=== PATIENT | female | born 1965 | race Hispanic/Latino ===

== ENCOUNTER 2018-02-03 20:09 | Emergency (ER) | payer BC, OTHER ==
[2018-02-03 21:49] LABS: Absolute Lymphocytes (CBC) 2.5 K/uL (0.7-4.9); Absolute Monocytes 0.4 K/uL (0.1-1.3); Absolute Neutrophil 2.9 K/uL (1.8-8.0); Basophils % 0.9 % (0-1.3); Eosinophils % 4.8 % (0-4.4); Hematocrit 38.6 % (36.0-45.0); Lymphocytes % 40.5 % (15.3-44.8); MCV 89.7 fL (80-100); MPV 10.7 fL (7.6-11.3); Monocytes % 6.5 % (3.3-12.3)
--- NOTE | 2018-02-03 21:57 | RAD REPORT ---
EXAM DESCRIPTION: RAD - Ankle Left 3 View -02/03/2018 9:46 pm CLINICAL HISTORY: Left ankle pain and swelling FINDINGS: No fracture or dislocation is seen. The bones are osteoporotic. Marked soft tissue swelling is present. Mild joint space narrowing is see n. Mild deformity of the talus appears chronic
[2018-02-03 22:05] LABS: Potassium 3.9 mmol/L (3.5-5.1)
--- NOTE | 2018-02-03 23:10 | ER ---
Nurse's Notes [facility] Name: Luba Ng Age: 52 yrs Sex: Female : 1965 Arrival Date: 02/03/2018 Time: 20:26 Bed 5 Private MD: Diagnosis: Rash and other nonspecific skin eruption Presentation: 02/03 20:32 Presenting complaint: Patient states: pt states she was sent by Dr Talbert for failed bb out patient therapy for left leg. pt injured left leg earlier in January and had an ultrasound here which was negative for a clot at that time, pt leg has been swollen since then and she has had 2 rounds of antibiotics but it is not getting any better. Transition of care: patient was not received from another setting of care. Onset of symptoms was January 2018. Risk Assessment: Do you want to hurt yourself or someone else? Patient reports no desire to harm self or others. Initial Sepsis Screen: Does the patient meet any 2 criteria? No. Patient's initial sepsis screen is negative. Does the patient have a suspected source of infection? No. Patient's initial sepsis screen is negative. Care prior to arrival: None. 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 - Social history:: Smoking status: Patient/guardian denies using tobacco, Patient/guardian denies using alcohol. - Ebola Screening: : No symptoms or risks identified at this time. Screenin:46 Abuse screen: Denies threats or abuse. Denies injuries from another. Nutritional ak1 screening: No deficits noted. Tuberculosis screening: No symptoms or risk factors identified. Fall Risk Gait- Normal/Bed Rest/Wheelchair (0 pts). Assessment: 20:46 General: Appears in no apparent distress. Behavior is calm, cooperative. Pain: ak1 Complains of pain in left leg. Neuro: No deficits noted. Cardiovascular: No deficits noted. Respiratory: No deficits noted. GI: No signs and/or symptoms were reported involving the gastrointestinal system. : No signs and/or symptoms were reported regarding the genitourinary system. EENT: No signs and/or symptoms were reported regarding the EENT system. Derm: Skin is red, Skin temperature is warm. Musculoskeletal: pt with hx polio. pt with redness and swelling to left lower leg. 21:41 Reassessment: Patient appears in no apparent distress at this time. No changes from ak1 previously documented assessment. Patient is alert, oriented x 3, equal unlabored respirations, skin warm/dry/pink. 23:14 Reassessment: Patient appears in no apparent distress at this time. No changes from ak1 previously documented assessment. Patient is alert, oriented x 3, equal unlabored respirations, skin warm/dry/pink. 23:20 Reassessment: Patient is alert, oriented x 3, equal unlabored respirations, skin ea warm/dry/pink. Discharge instructions given to patient and family, verbalized the understanding of instruction. Vital Signs: 20:37 BP 119 / 71; Pulse 82; Resp 18 S; Temp 98.7(O); Pulse Ox 100% on R/A; Weight 90.72 kg bb (R); Height 4 ft. 11 in. (149.86 cm) (R); Pain 6/10; 21:45 BP 118 / 67; Pulse 66; Resp 18; Temp 98.6; Pulse Ox 97% on R/A; Pain 6/10; ak1 22:32 BP 104 / 73; Pulse 75; Resp 18; Temp 98.6; Pulse Ox 98% on R/A; Pain 5/10; ak1 23:14 BP 107 / 58; Pulse 63; Resp 18; Temp 98.5; Pulse Ox 100% on R/A; Pain 5/10; ak1 20:37 Body Mass Index 40.39 (90.72 kg, 149.86 cm) bb ED Course: 20:26 Patient arrived in ED. bb 20:35 Triage completed. bb 20:37 Arm band placed on left wrist. Patient placed in an exam room, on a stretcher. bb 20:44 Houston Beck PA is PHCP. jr8 20:44 Tristen Maynard MD is Attending Physician. jr8 20:46 Lu Cruz, RN is Primary Nurse. ak1 20:46 Patient has correct armband on for positive identification. Bed in low position. Call ak1 light in reach. Side rails up X 1. 21:30 Initial lab(s) drawn, by me, sent to lab. First set of blood cultures drawn Second set ak1 of blood cultures drawn by me. 21:40 Inserted saline lock: 22 gauge in right hand, using aseptic technique. Blood collected. ak1 21:43 X-ray completed. Portable x-ray completed in exam room. Patient tolerated procedure kp1 well. 21:44 XRAY Ankle LEFT 3 view In Process Unspecified. EDMS 21:45 No provider procedures requiring assistance completed. ak1 23:14 IV discontinued, intact, bleeding controlled, No redness/swelling at site. Pressure ak1 dressing applied. Administered Medications: No medications were administered Outcome: 21:45 Condition: stable ak1 23:09 Discharge ordered by . jr8 23:15 Discharged to home via wheelchair, with family. ak1 23:20 Discharge instructions given to patient, Instructed on discharge instructions, follow ea up and referral plans. medication usage, Demonstrated understanding of instructions, follow-up care, medications, Prescriptions given X 2. 23:21 Patient left the ED. ea Signatures: Dispatcher [employer] EDMS Keya Potter, RN RN Houston Lei PA PA jr8 Lu Cruz, RN RN [facility] Regina Mora [facility] Hansa Lane RN RN ea Corrections: (The following items were deleted from the chart) 21:46 21:45 Patient admitted, IV remains in place. ak1 ak1
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
== END 2018-02-03 23:21 | disposition home or self-care (01) ==
LOC: ER 20:09
DX: R21 Rash and other nonspecific skin eruption (principal)
CPT/HCPCS: 36415; 80048; 84145; 85025; 87040; 99284

== ENCOUNTER 2018-05-14 13:56 | Emergency (ER) | payer BC, OTHER ==
[2018-05-14 16:07] LABS: Absolute Lymphocytes (CBC) 1.8 K/uL (0.7-4.9); Absolute Monocytes 0.4 K/uL (0.1-1.3); Absolute Neutrophil 2.9 K/uL (1.8-8.0); Basophils % 0.6 % (0-1.3); Eosinophils % 1.5 % (0-4.4); Hematocrit 37.1 % (36.0-45.0); Lymphocytes % 34.3 % (15.3-44.8); MCH 30.6 pg (27.0-35.0); MCV 89.7 fL (80-100); MPV 11.5 fL (7.6-11.3); Monocytes % 7.5 % (3.3-12.3); RBC Red Blood Cell Count 4.13 M/uL (3.86-4.86)
--- NOTE | 2018-05-14 16:20 | RAD REPORT ---
EXAM DESCRIPTION: USExtremity Venous Uni Ltd05/14/2018 4:10 pm CLINICAL HISTORY: left leg pain and swelling. COMPARISON: December 2017 FINDINGS: Left common femoral, superficial femoral, popliteal and posterior tibial veins are compre ssible and demonstrate augmentation. Doppler demonstrates good flow. IMPRESSION: No evidence of deep venous thrombosis involving the left lower extremity.
[2018-05-14 16:35] LABS: BUN Blood Urea Nitrogen 12 mg/dL (7-18); Bicarbonate 30 mmol/L (21-32); Glucose Level 115 mg/dL (74-106); Potassium 3.6 mmol/L (3.5-5.1); Sodium Level 144 mmol/L (136-145)
[2018-05-14] MEDS ORDERED: CLINDAMYCIN 900MG/D5W 900 MG/50 ML BAG IV ONE (16:55)
--- NOTE | 2018-05-14 17:01 | EDPHYS ---
Physician Documentation [facility] Name: Luba Ng Age: 53 yrs Sex: Female : 1965 Arrival Date: 05/14/2018 Time: 13:57 Bed 30 Private MD: Jonathan Talbert ED Physician Juan Smiley HPI: 05/14 15:40 This 53 yrs old Female presents to ER via Wheelchair with complaints of Leg cp Swelling - L, Fever. 15:40 The patient reports fever, that was measured at 102 degrees Fahrenheit. cp 15:40 The patient presents with pain, that is acute, swelling, tenderness, erythema. cp 15:40 The complaints affect the left lower leg. Onset: The symptoms/episode began/occurred 2 cp day(s) ago. Associated signs and symptoms: Pertinent negatives numbness, tingling, weakness. Treatment prior to arrival includes: no previous treatment. 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 - Social history:: Smoking status: Patient/guardian denies using tobacco. - Ebola Screening: : Patient denies travel to an Ebola-affected area in the 21 days before illness onset. ROS: 15:45 Constitutional: Negative for body aches, chills, fever, poor PO intake. cp 15:45 Eyes: Negative for injury, pain, redness, and discharge. cp 15:45 ENT: Negative for drainage from ear(s), ear pain, sore throat, difficulty swallowing, difficulty handling secretions. 15:45 Cardiovascular: Negative for chest pain, palpitations. 15:45 Respiratory: Negative for cough, shortness of breath, wheezing. 15:45 Abdomen/GI: Negative for abdominal pain, nausea, vomiting, and diarrhea, black/tarry stool, rectal bleeding. 15:45 MS/extremity: Positive for erythema, pain, swelling, tenderness, of the left lower leg, Negative for injury or acute deformity, paresthesias. 15:45 All other systems are negative. Exam: 15:50 Constitutional: The patient appears in no acute distress, alert, awake, non-toxic, well cp developed, well nourished. 15:50 Head/Face: Normocephalic, atraumatic. cp 15:50 Eyes: Periorbital structures: appear normal, Conjunctiva: normal, no exudate, no injection, Sclera: no appreciated abnormality, Lids and lashes: appear normal, bilaterally. 15:50 ENT: External ear(s): are unremarkable, Nose: is normal, Mouth: Lips: moist, Oral mucosa: pink and intact, moist, Posterior pharynx: is normal, airway is patent, no erythema, no exudate. 15:50 Neck: ROM/movement: is normal, is supple, without pain, no range of motions limitations, no nuchal rigidity. 15:50 Chest/axilla: Inspection: normal, Palpation: is normal, no crepitus, no tenderness. 15:50 Cardiovascular: Rate: normal, Rhythm: regular. 15:50 Respiratory: the patient does not display signs of respiratory distress, Respirations: normal, no use of accessory muscles, no retractions, no splinting, no tachypnea, labored breathing, is not present, Breath sounds: are clear throughout, no decreased breath sounds, no stridor, no wheezing. 15:50 Abdomen/GI: Exam negative for discomfort, distension, guarding, Inspection: abdomen appears normal. 15:50 Skin: abscess, not appreciated, cellulitis, well demarcated, on the left lower leg, mild swelling, skin warm to touch, induration, is not appreciated. Vital Signs: 14:08 BP 135 / 85; Pulse 77; Resp 18; Temp 98.3(TE); Pulse Ox 98% on R/A; Weight 90.72 kg aj1 (R); Height 4 ft. 11 in. (149.86 cm); Pain 5/10; 16:30 BP 112 / 59; Pulse 80; Resp 18; Pulse Ox 100% on R/A; mg2 14:08 Body Mass Index 40.39 (90.72 kg, 149.86 cm) aj1 MDM: 15:30 Patient medically screened. cp 16:00 Differential diagnosis: cellulitis, fasciitis, erysipelas, abscess, DVT. cp 17:00 Data reviewed: vital signs, nurses notes, lab test result(s), radiologic studies, cp ultrasound. 17:00 Counseling: I had a detailed discussion with the patient and/or guardian regarding: the cp historical points, exam findings, and any diagnostic results supporting the discharge/admit diagnosis, lab results, radiology results, the need for outpatient follow up, a family practitioner, to return to the emergency department if symptoms worsen or persist or if there are any questions or concerns that arise at home. 05/14 15:36 Order name: CBC with Diff; Complete Time: 16:14 05/14 16:14 Interpretation: Normal except: MPV 11.5. 05/14 15:36 Order name: Procalcitonin; Complete Time: 16:58 05/14 16:58 Interpretation: Reviewed. 05/14 15:36 Order name: BMP; Complete Time: 16:42 cp 05/14 16:42 Interpretation: Normal except: CL 109; GLUC 115; CRE 0.50. 05/14 15:36 Order name: Lactate; Complete Time: 16:42 05/14 16:42 Interpretation: Within normal limits: LAC 1.5. 05/14 15:36 Order name: US Extremity Venous Unilateral Ltd: left leg; Complete Time: 16:26 05/14 16:43 Order name: Blood Culture Adult (2) 05/14 15:36 Order name: Urine Dipstick-Ancillary (obtain specimen); Complete Time: 16:24 05/14 15:36 Order name: Urine Test (obtain specimen); Complete Time: 16:24 05/14 15:36 Order name: IV; Complete Time: 15:52 05/14 16:43 Order name: Misc. Order: outline area of erythema; Complete Time: 17:01 cp Administered Medications: 16:58 Drug: Clindamycin 900 mg Route: IVPB; Infused Over: 30 mins; Site: right antecubital; mg2 17:33 Follow up: Response: No adverse reaction; IV Status: Completed infusion mg2 Disposition: 05/14/18 17:01 Discharged to Home. Impression: Cellulitis of left lower limb. - Condition is Stable. - Discharge Instructions: Cellulitis, Adult. - Prescriptions for Clindamycin HCl 300 mg Oral Capsule - take 1 capsule by ORAL route every 6 hours for 10 days; 40 capsule. Bactrim DS 800- 160 mg Oral Tablet - take 1 tablet by ORAL route every 12 hours for 10 days; 20 tablet. - Medication Reconciliation Form, Thank You Letter, Antibiotic Education, Prescription Opioid Use form. - Follow up: Jonathan Talbert MD; When: 48 Hours; Reason: Recheck today's complaints. - Problem is new. - Symptoms have improved. Addendum: 05/18/2018 00:51 Co-signature as Attending Physician, Juan Smiley MD. g s Signatures: Dispatcher [employer] EDShayla Brewster RN RN aj1 Rad Hollins PA PA cp Juan Smiley MD MD gs Cornell Lr RN RN mg2 Corrections: (The following items were deleted from the chart) 05/14 17:34 17:01 05/14/2018 17:01 Discharged to Home. Impression: Cellulitis of left lower limb. mg2 Condition is Stable. Forms are Medication Reconciliation Form, Thank You Letter, Antibiotic Education, Prescription Opioid Use. Follow up: Jonathan Talbert; When: 48 Hours; Reason: Recheck today's complaints. Problem is new. Symptoms have improved. cp
--- NOTE | 2018-05-14 17:01 | ER ---
Nurse's Notes [facility] Name: Luba Ng Age: 53 yrs Sex: Female : 1965 Arrival Date: 05/14/2018 Time: 13:57 Bed 30 Private MD: Jonathan Talbert Diagnosis: Cellulitis of left lower limb Presentation: 05/14 14:06 Presenting complaint: Patient states: "Day before yesterday I started having pain in my aj1 left adames, and its got red and hot and swollen." Reports fever. TMax 102. Transition of care: patient was not received from another setting of care. Onset of symptoms was May 12, 2018. Risk Assessment: Do you want to hurt yourself or someone else? Patient reports no desire to harm self or others. Initial Sepsis Screen: Does the patient meet any 2 criteria? No. Patient's initial sepsis screen is negative. Does the patient have a suspected source of infection? Yes: Skin breakdown/wound. Care prior to arrival: None. 14:06 Method Of Arrival: Wheelchair aj 14:06 Acuity: RUBI 3 aj1 Triage Assessment: 14:08 General: Appears in no apparent distress. uncomfortable, Behavior is calm, cooperative, aj1 appropriate for age. Pain: Complains of pain in left leg Pain currently is 5 out of 10 on a pain scale. Neuro: Level of Consciousness is awake, alert, obeys commands. Cardiovascular: Patient's skin is warm and dry. Respiratory: Airway is patent Respiratory effort is even, unlabored, Respiratory pattern is regular, symmetrical. 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 - Social history:: Smoking status: Patient/guardian denies using tobacco. - Ebola Screening: : Patient denies travel to an Ebola-affected area in the 21 days before illness onset. Screenin:28 Abuse screen: Denies threats or abuse. Denies injuries from another. Nutritional mg2 screening: No deficits noted. Tuberculosis screening: No symptoms or risk factors identified. Fall Risk None identified. Assessment: 15:34 General: Appears in no apparent distress. comfortable, Behavior is calm, cooperative. mg2 Pain: Complains of pain in left leg Pain does not radiate. Pain currently is 5 out of 10 on a pain scale. Quality of pain is described as aching. Neuro: Level of Consciousness is awake, alert, obeys commands, Oriented to person, place, time, situation. Cardiovascular: Capillary refill < 3 seconds Patient's skin is warm and dry. Respiratory: Airway is patent Respiratory effort is even, unlabored, Respiratory pattern is regular, symmetrical. GI: No signs and/or symptoms were reported involving the gastrointestinal system. : No signs and/or symptoms were reported regarding the genitourinary system. EENT: No signs and/or symptoms were reported regarding the EENT system. Derm: Skin is intact, redness and swelling in the left adames. Musculoskeletal: Circulation, motion, and sensation intact. Swelling present in left leg. 17:06 Reassessment: Patient appears in no apparent distress at this time. Patient and/or mg2 family updated on plan of care and expected duration. Pain level reassessed. Patient is alert, oriented x 3, equal unlabored respirations, skin warm/dry/pink. patient for discharge but still with ongoing iv fluid. Vital Signs: 14:08 BP 135 / 85; Pulse 77; Resp 18; Temp 98.3(TE); Pulse Ox 98% on R/A; Weight 90.72 kg aj1 (R); Height 4 ft. 11 in. (149.86 cm); Pain 5/10; 16:30 BP 112 / 59; Pulse 80; Resp 18; Pulse Ox 100% on R/A; mg2 14:08 Body Mass Index 40.39 (90.72 kg, 149.86 cm) aj1 ED Course: 13:57 Patient arrived in ED. as 13:58 Jonathan Talbert MD is Private Physician. as 14:07 Triage completed. aj1 14:08 Arm band placed on Patient placed in waiting room, Patient notified of wait time. aj1 15:26 Cornell Lr, LION is Primary Nurse. mg2 15:30 Rad Hollins PA is PHCP. cp 15:30 Juan Smiley MD is Attending Physician. cp 15:34 No provider procedures requiring assistance completed. mg2 15:36 Patient has correct armband on for positive identification. Pulse ox on. NIBP on. Door mg2 closed. Warm blanket given. 15:41 Note: nurse putting iv in-. aa4 15:53 Inserted saline lock: 20 gauge in right antecubital area, using aseptic technique. mg2 Blood collected. 16:11 US Extremity Venous Unilateral Ltd: left leg In Process Unspecified. EDMS 17:00 Jonathan Talbert MD is Referral Physician. cp 17:02 erythema size- 13 cm x 14 cm. mg2 17:34 IV discontinued, intact, bleeding controlled, No redness/swelling at site. Pressure mg2 dressing applied. Administered Medications: 16:58 Drug: Clindamycin 900 mg Route: IVPB; Infused Over: 30 mins; Site: right antecubital; mg2 17:33 Follow up: Response: No adverse reaction; IV Status: Completed infusion mg2 Outcome: 17:01 Discharge ordered by MD. cp 17:34 Discharged to home via wheelchair, with family. mg2 17:34 Condition: stable 17:34 Discharge instructions given to patient, family, Instructed on discharge instructions, follow up and referral plans. medication usage, Demonstrated understanding of instructions, follow-up care, medications, Prescriptions given X 2. 17:34 Patient left the ED. mg2 Signatures: Dispatcher [employer] EDMS Shayla Sanchez, LION RN omar1 Lynnette Driscoll Amanda aa4 Rad Hollins PA PA cp Cornell Lr RN RN mg2
== END 2018-05-14 17:34 | disposition home or self-care (01) ==
LOC: ER 13:56
DX: L03.116 Cellulitis of left lower limb (principal)
CPT/HCPCS: 36415; 80048; 83605; 84145; 85025; 87040; 93971; 96365; 99284

== ENCOUNTER 2018-08-14 11:28 | Emergency (ER) | payer BC, OTHER ==
--- NOTE | 2018-08-14 13:49 | RAD REPORT ---
EXAM DESCRIPTION: CT - Head Brain Wo Cont - 08/14/2018 1:43 pm CLINICAL HISTORY: TRAUMA Trauma, head injury COMPARISON: HEAD BRAIN W O CONTRAST dated 06/03/2012 TECHNIQUE: All CT scans are performed using dose optimization technique as appropriate and may inclu de automated exposure control or mA/KV adjustment according to patient size. FINDINGS: No intracranial hemorrhage, hydrocephalus or extra-axial fluid collection.No areas of brai n edema or evidence of midline shift. The paranasal sinuses and mastoids are clear. The calvarium is intact. IMPRESSION: No acute intracranial abnormality.
--- NOTE | 2018-08-14 14:10 | RAD REPORT ---
EXAM DESCRIPTION: RAD - Lumbar Spine 3 Views - 08/14/2018 2:03 pm CLINICAL HISTORY: PAIN Radiculopathy COMPARISON: Lumbar Spine 3 Views dated 05/24/2016; LUMBAR SPINE 3 VIEWS dated 11/26/2014 FINDINGS: Vertebral body heights appear maintained. No compression fracture noted. Mild disc thinnin g is present with small endplate osteophytes involving the lower lumbar spine. 6 mm degenerative retr olisthesis of L4 on 5 is seen. Overall, degenerative changes appear stable since the 2016 comparative study. IMPRESSION: Stable mild lower lumbar degenerative changes.
--- NOTE | 2018-08-14 14:10 | RAD REPORT ---
EXAM DESCRIPTION: RAD - Hand Left 3 View - 08/14/2018 2:03 pm CLINICAL HISTORY: PAIN History of trauma. COMPARISON: No comparisons FINDINGS: Mildly angulated fracture involves the base of the proximal phalanx of the fifth finger. A djacent soft tissue swelling is noted.
--- NOTE | 2018-08-14 14:58 | ER ---
Nurse's Notes [facility] Name: Luba Ng Age: 53 yrs Sex: Female : 1965 Arrival Date: 08/14/2018 Time: 11:30 Bed 23 Private MD: Jonathan Talbert Diagnosis: Displaced fracture of proximal phalanx of finger;Contusion face Presentation: 08/14 11:41 Presenting complaint: Patient states: reports was going down the ramp in her wheelchair sg when it would not stop, hit the ground catching herself with her left arm, hitting the left side of her face, reports pain and swelling to left pinky left wrist and left eyebrow, no blood thinning medication no aspirin. Care prior to arrival: None. Mechanism of Injury: Fall. Trauma event details: Injury occurred in the [facility]. 11:41 Acuity: RUBI 4 sg 11:41 Method Of Arrival: Wheelchair sg 16:18 Transition of care: patient was not received from another setting of care. Onset of tl3 symptoms. Risk Assessment: Do you want to hurt yourself or someone else?. Initial Sepsis Screen: Does the patient meet any 2 criteria? No. Patient's initial sepsis screen is negative. Does the patient have a suspected source of infection? No. Patient's initial sepsis screen is negative. 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 LMP N/A - Post-menopause tl3 Trauma Activation: Not Applicable Physician: ED Physician; Name: ; Notified At: ; Arrived At: Physician: General Surgeon; Name: ; Notified At: ; Arrived At: Physician: Radiology; Name: ; Notified At: ; Arrived At: Physician: Respiratory; Name: ; Notified At: ; Arrived At: Physician: Lab; Name: ; Notified At: ; Arrived At: Historical: - Allergies: 11:47 No Known Allergies; sg - Home Meds: 11:47 gabapentin oral oral [Active]; Flexeril Oral [Active]; sg 11:47 Tramadol Oral [Active]; sg - PMHx: 11:47 Herniated disc; Polio; sg - PSHx: 11:47 ; lap band; Cholecystectomy; Knee surgery; sg - Immunization history:: Adult Immunizations up to date. - Social history:: Smoking status: unknown. - Ebola Screening: : No symptoms or risks identified at this time. Screenin:24 Abuse screen: Denies threats or abuse. Nutritional screening: No deficits noted. tl3 Tuberculosis screening: No symptoms or risk factors identified. Fall Risk Secondary diagnosis (15 points) impaired mobility. Assessment: 13:20 General: Appears comfortable, well groomed, well developed, well nourished, Behavior is tl3 calm, cooperative, appropriate for age. Pain: Complains of pain in left eye and left hand. Neuro: Level of Consciousness is awake, alert, obeys commands, Oriented to person, place, time, situation, Appropriate for age. Cardiovascular: Patient's skin is warm and dry. Respiratory: Airway is patent Respiratory effort is even, unlabored, Respiratory pattern is regular, symmetrical. GI: No deficits noted. No signs and/or symptoms were reported involving the gastrointestinal system. : No deficits noted. No signs and/or symptoms were reported regarding the genitourinary system. EENT: Lid(s) swelling to left eye lid, ice applied. Derm: Bruising that is on left eye. Musculoskeletal: Swelling present in left hand. 15:00 Reassessment: No changes from previously documented assessment. Patient and/or family tl3 updated on plan of care and expected duration. Pain level reassessed. Patient is alert, oriented x 3, equal unlabored respirations, skin warm/dry/pink. Vital Signs: 11:45 Pulse 98; Resp 17; Temp 98.5; Pulse Ox 100% ; Weight 85.73 kg (R); Height 4 ft. 11 in. sg (149.86 cm); Pain 8/10; 11:48 BP 140 / 78; sg 13:24 BP 129 / 76; Pulse 64; Resp 18; Pulse Ox 100% on R/A; tl3 16:20 BP 141 / 76; Pulse 66; Resp 18; Pulse Ox 100% on R/A; tl3 11:45 Body Mass Index 38.17 (85.73 kg, 149.86 cm) sg [place] Coma Score: 11:45 Eye Response: spontaneous(4). Verbal Response: oriented(5). Motor Response: obeys sg commands(6). Total: 15. Trauma Score (Adult): 11:45 Eye Response: spontaneous(1); Verbal Response: oriented(1); Motor Response: obeys sg commands(2); Systolic BP: > 89 mm Hg(4); Respiratory Rate: 10 to 29 per min(4); [place] Score: 15; Trauma Score: 12 ED Course: 11:30 Patient arrived in ED. mr 11:31 Jonathan Talbert MD is Private Physician. mr 11:43 Triage completed. sg 12:53 Houston Beck PA is PHCP. jr8 12:53 Rad Nolasco MD is Attending Physician. jr8 12:56 Margret Kramer RN is Primary Nurse. tl3 13:24 Patient has correct armband on for positive identification. Bed in low position. Call tl3 light in reach. Side rails up X2. Adult w/ patient. Pulse ox on. NIBP on. 13:24 No provider procedures requiring assistance completed. Patient did not have IV access tl3 during this emergency room visit. 13:[address] sj 13:41 CT completed. Patient tolerated procedure well. Patient moved back from CT. vr 13:43 CT Head Brain wo Cont In Process Unspecified. EDMS 14:03 XRAY Hand LEFT 3 View In Process Unspecified. EDMS 14:03 XRAY Lumbar Spine (3 Views) In Process Unspecified. EDMS 14:34 Ice pack to injury. jp3 14:57 Basil Rodriguez MD is Referral Physician. jr8 15:45 Jarett wrap to left wrist Orthoglass splint: Ulnar gutter/Boxer splint applied on left jp3 forearm. 16:19 Arm band placed on. tl3 Administered Medications: 14:56 Drug: [place] (7.5 mg-325 mg) 1 tabs Route: PO; tl3 16:16 Follow up: Response: No adverse reaction tl3 Output: 11:45 Urine: 0ml; Total: 0ml. sg Outcome: 14:58 Discharge ordered by . jr8 16:17 Discharged to home via wheelchair. tl3 16:17 Condition: stable 16:17 Discharge instructions given to patient, family, Instructed on discharge instructions, follow up and referral plans. medication usage, Demonstrated understanding of instructions, follow-up care, medications, Prescriptions given X 1. 16:21 Patient left the ED. tl3 Signatures: Dispatcher [employer] EDMS Jose Loyd RN RN Lynn Kline mr Rene, Chastity Henry vr Houston Beck PA PA jr8 Lowrey, Margret, RN RN tl3 Saturnino Madrigal jp3
--- NOTE | 2018-08-14 14:59 | EDPHYS ---
Physician Documentation [facility] Name: Luba Ng Age: 53 yrs Sex: Female : 1965 Arrival Date: 08/14/2018 Time: 11:30 Bed 23 Private MD: Jonathan Talbert ED Physician Rad Nolasco HPI: 08/14 13:36 This 53 yrs old Female presents to ER via Wheelchair with complaints of Fall jr8 Injury. 13:36 Onset: The symptoms/episode began/occurred acutely, today. Associated injuries: The jr8 patient sustained injury to the head, injury to the low back, left hand. Severity of symptoms: At their worst the symptoms were moderate, in the emergency department the symptoms are unchanged. The patient has not experienced similar symptoms in the past. The patient has not recently seen a physician. Fell out of chair going down ramp landing hand face and left hand. Denies LOC. Pain, swelling, bruising to left ocular region. Pain to hand and low back . 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 - Social history:: Smoking status: unknown. - Ebola Screening: : No symptoms or risks identified at this time. ROS: 13:36 Eyes: Negative for injury, pain, redness, and discharge, ENT: Negative for injury, jr8 pain, and discharge, Neck: Negative for injury, pain, and swelling, Cardiovascular: Negative for chest pain, palpitations, and edema, Respiratory: Negative for shortness of breath, cough, wheezing, and pleuritic chest pain, Abdomen/GI: Negative for abdominal pain, nausea, vomiting, diarrhea, and constipation, Back: Negative for injury and pain. 13:36 MS/extremity: Positive for ecchymosis, pain, swelling, tenderness, of the left hand. 13:36 Skin: Positive for ecchymosis, of the face. 13:36 Neuro: Positive for headache, Negative for altered mental status, dizziness, gait disturbance, hearing loss, loss of consciousness, numbness, seizure activity, speech changes, syncope, near syncope, tingling, tinnitus, tremor, visual changes, weakness. Exam: 13:36 Head/Face: Normocephalic, atraumatic. ENT: Nares patent. No nasal discharge, no jr8 septal abnormalities noted. Tympanic membranes are normal and external auditory canals are clear. Oropharynx with no redness, swelling, or masses, exudates, or evidence of obstruction, uvula midline. Mucous membranes moist. Neck: Trachea midline, no thyromegaly or masses palpated, and no cervical lymphadenopathy. Supple, full range of motion without nuchal rigidity, or vertebral point tenderness. No Meningismus. Chest/axilla: Normal chest wall appearance and motion. Nontender with no deformity. No lesions are appreciated. Cardiovascular: Regular rate and rhythm with a normal S1 and S2. No gallops, murmurs, or rubs. Normal PMI, no JVD. No pulse deficits. Respiratory: Lungs have equal breath sounds bilaterally, clear to auscultation and percussion. No rales, rhonchi or wheezes noted. No increased work of breathing, no retractions or nasal flaring. Abdomen/GI: Soft, non-tender, with normal bowel sounds. No distension or tympany. No guarding or rebound. No evidence of tenderness throughout. Back: No spinal tenderness. No costovertebral tenderness. Full range of motion. Skin: Warm, dry with normal turgor. Normal color with no rashes, no lesions, and no evidence of cellulitis. Neuro: Awake and alert, GCS 15, oriented to person, place, time, and situation. Cranial nerves II-XII grossly intact. Motor strength 5/5 in all extremities. Sensory grossly intact. Cerebellar exam normal. Normal gait. 13:36 Eyes: Periorbital structures: swelling, that is mild, on the left supraorbital ridge, ecchymosis, that is mild, on the left supraorbital ridge, Pupils: equal, round, and reactive to light and accomodation, Extraocular movements: intact throughout, Conjunctiva: normal, Corneas: are normal, Sclera: no appreciated abnormality, Anterior chamber: normal, no hyphema, Lids and lashes: appear normal. 13:36 Musculoskeletal/extremity: Extremities: grossly normal except: noted in the left hand: ecchymosis, pain, swelling, tenderness, to 5th digit left hand, ROM: limited active range of motion, in the 5th digit left hand, limited active range of motion due to pain, limited passive range of motion due to pain, Circulation is intact in all extremities. Sensation intact. Vital Signs: 11:45 Pulse 98; Resp 17; Temp 98.5; Pulse Ox 100% ; Weight 85.73 kg (R); Height 4 ft. 11 in. sg (149.86 cm); Pain 8/10; 11:48 BP 140 / 78; sg 13:24 BP 129 / 76; Pulse 64; Resp 18; Pulse Ox 100% on R/A; tl3 16:20 BP 141 / 76; Pulse 66; Resp 18; Pulse Ox 100% on R/A; tl3 11:45 Body Mass Index 38.17 (85.73 kg, 149.86 cm) sg [place] Coma Score: 11:45 Eye Response: spontaneous(4). Verbal Response: oriented(5). Motor Response: obeys sg commands(6). Total: 15. Trauma Score (Adult): 11:45 Eye Response: spontaneous(1); Verbal Response: oriented(1); Motor Response: obeys sg commands(2); Systolic BP: > 89 mm Hg(4); Respiratory Rate: 10 to 29 per min(4); [place] Score: 15; Trauma Score: 12 Procedures: 14:56 Splinting: Splint applied to left hand using Orthoglass splint, applied by tech. jr8 Examined by me, post splint application: neurovascular intact, 2+ distal pulses palpable, brisk capillary refill noted, Patient tolerated well. MDM: 12:53 Patient medically screened. jr8 14:56 Data reviewed: vital signs, nurses notes, radiologic studies, CT scan, plain films, and jr8 as a result, I will discharge patient. Data interpreted: Pulse oximetry: on room air is 100 %. Interpretation: normal. Counseling: I had a detailed discussion with the patient and/or guardian regarding: the historical points, exam findings, and any diagnostic results supporting the discharge/admit diagnosis, radiology results, the need for outpatient follow up, a hand specialist, to return to the emergency department if symptoms worsen or persist or if there are any questions or concerns that arise at home. 08/14 13:29 Order name: XRAY Hand LEFT 3 View; Complete Time: 14:25 jr8 08/14 13:29 Order name: XRAY Lumbar Spine (3 Views); Complete Time: 14:25 jr8 08/14 13:29 Order name: CT Head Brain wo Cont; Complete Time: 13:56 jr8 08/14 14:28 Order name: Ulnar Gutter splint; Complete Time: 15:45 jr8 Administered Medications: 14:56 Drug: [place] (7.5 mg-325 mg) 1 tabs Route: PO; tl3 16:16 Follow up: Response: No adverse reaction tl3 Disposition: 08/15 06:58 Co-signature as Attending Physician, Rad Nolasco MD I agree with the assessment and tyson plan of care. Disposition: 08/14/18 14:58 Discharged to Home. Impression: Displaced fracture of proximal phalanx of finger, Contusion face. - Condition is Stable. - Discharge Instructions: Contusion, Finger Fracture. - Medication Reconciliation Form, Thank You Letter, Antibiotic Education, Prescription Opioid Use, Family Work Release form. - Follow up: Basil Rodriguez MD; When: 5 - 6 days; Reason: Recheck today's complaints, Continuance of care, Re-evaluation by your physician. - Problem is new. - Symptoms have improved. Signatures: Dispatcher [employer] EDJose Mosqueda, RN Rad Miguel MD MD cha Roszak, Josh, JOZEF PA jr8 Margret Kramer RN RN tl3 Corrections: (The following items were deleted from the chart) 08/14 16:21 14:58 08/14/2018 14:58 Discharged to Home. Impression: Displaced fracture of proximal tl3 phalanx of finger; Contusion face. Condition is Stable. Forms are Medication Reconciliation Form, Thank You Letter, Antibiotic Education, Prescription Opioid Use. Follow up: Basil Rodriguez; When: 5 - 6 days; Reason: Recheck today's complaints, Continuance of care, Re-evaluation by your physician. Problem is new. Symptoms have improved. jr8
[2018-08-14] MEDS ORDERED: HYDROCODONE/APAP 7.5/325 MG TAB ONE (15:05)
== END 2018-08-14 16:21 | disposition home or self-care (01) ==
LOC: ER 11:28
PROC: 2W3DX1Z Immobilization of Left Lower Arm using Splint (ICD-10-PCS; principal; 2018-08-14)
DX: S62.617A Displaced fracture of proximal phalanx of left little finger, initial encounter for closed fracture (principal); S00.83XA Contusion of other part of head, initial encounter; W05.0XXA Fall from non-moving wheelchair, initial encounter
CPT/HCPCS: 70450; 72100; 99284

== ENCOUNTER 2019-05-02 13:15 | Emergency (ER) | payer BC, OTHER ==
[2019-05-02] MEDS ORDERED: NA CHLORIDE 0.9% 1,000 ML ONE (13:57)
[2019-05-02] MEDS ORDERED: MECLIZINE HCL 12.5 MG TAB ONE (13:57)
[2019-05-02 14:37] LABS: Absolute Lymphocytes (CBC) 2.3 K/uL (0.7-4.9); Basophils % 0.6 % (0-1.3); Hematocrit 38.7 % (36.0-45.0); Lymphocytes % 37.3 % (15.3-44.8); MPV 11.5 fL (7.6-11.3); Protime INR 1.01; RBC Red Blood Cell Count 4.24 M/uL (3.86-4.86)
[2019-05-02 14:54] LABS: ALT/SGPT 22 U/L (12-78); AST/SGOT 17 U/L (15-37); Albumin 3.7 g/dL (3.4-5.0); Alkaline Phosphatase 76 U/L (45-117); BUN Blood Urea Nitrogen 15 mg/dL (7-18); Bicarbonate 28 mmol/L (21-32); Bilirubin Direct 0.1 mg/dL (0-0.2); Bilirubin Total 0.3 mg/dL (0.2-1.0); Glucose Level 99 mg/dL (74-106); Magnesium 2.2 mg/dL (1.8-2.4); NT PRO-BNP 13 pg/mL (<125); Potassium 3.7 mmol/L (3.5-5.1); Protein, Total 7.2 g/dL (6.4-8.2); Sodium Level 143 mmol/L (136-145); Troponin (Emerg Dept Use Only) < 0.02 ng/mL (0.0-0.045)
--- NOTE | 2019-05-02 15:02 | RAD REPORT ---
EXAM DESCRIPTION: CT - Head Brain Wo Cont - 05/02/2019 2:39 pm CLINICAL HISTORY: Dizziness COMPARISON: August 2018 TECHNIQUE: Computed axial tomography of the head was obtained. IV contrast was not requested. All CT scans are performed using dose optimization technique as appropriate and may include automated exposure control or mA/KV adjustment according to patient size. FINDINGS: An intracranial bleed is not seen . The ventricles are normal in caliber. No extra-axial fluid collection is noted. Fluid within the sinuses/ mastoids is not seen. IMPRESSION: No acute intracranial abnormality is seen. If patient's symptoms persist MRI of the bra in would be recommended.
[2019-05-02 15:59] LABS: Urine Blood NEGATIVE (NEG); Urine Glucose NEGATIVE (NEG); Urine Protein NEGATIVE (NEG); Urine pH 6.5 (5.0-7.0)
[2019-05-02] MEDS ORDERED: ONDANSETRON 4 MG/2 ML VIAL ONE (16:00)
[2019-05-02] MEDS ORDERED: DIAZEPAM 5 MG TABLET ONE ×2 (16:00→16:07)
[2019-05-02 16:05] LABS: Urine Bacteria <20 /HPF (<20); Urine Culture Reflex Order REFLEXED; Urine Mucus SLIGHT /HPF (NONE SEEN); Urine RBC <5 /HPF (NONE SEEN)
--- NOTE | 2019-05-02 16:37 | ER ---
Nurse's Notes [facility] Name: Luba Ng Age: 54 yrs Sex: Female : 1965 Arrival Date: 05/02/2019 Time: 13:19 Bed 19 Private MD: Jonathan Talbert Diagnosis: Dizziness and giddiness Presentation: 05/02 13:25 Presenting complaint: Patient states: "I started with vertigo a few days ago and today aa5 is worse". Pt states "I haven't had vertigo in years". pt reports nausea. Transition of care: patient was not received from another setting of care. Onset of symptoms was April 2019. Risk Assessment: Do you want to hurt yourself or someone else? Patient reports no desire to harm self or others. Initial Sepsis Screen: Does the patient meet any 2 criteria? No. Patient's initial sepsis screen is negative. Does the patient have a suspected source of infection? No. Patient's initial sepsis screen is negative. Care prior to arrival: None. 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 - Social history:: Smoking status: Patient/guardian denies using tobacco. - Ebola Screening: : No symptoms or risks identified at this time. Screenin:55 Abuse screen: Denies threats or abuse. Nutritional screening: No deficits noted. em Tuberculosis screening: No symptoms or risk factors identified. Fall Risk None identified. Assessment: 13:55 General: Appears in no apparent distress. comfortable, Behavior is calm, cooperative, em Denies fever. Pain: Denies pain. Neuro: Level of Consciousness is awake, alert, obeys commands, Oriented to person, place, time, situation, Appropriate for age Paralysis from waist down, hx of polio . Speech is normal, Facial symmetry appears normal, Reports dizziness, since 2 days Denies headache. Cardiovascular: Capillary refill < 3 seconds Patient's skin is warm and dry. Respiratory: Airway is patent Respiratory effort is even, unlabored, Respiratory pattern is regular, symmetrical. GI: Abdomen is flat, Patient currently denies nausea, vomiting. Derm: Skin is intact, is healthy with good turgor, Skin is pink, warm \\T\\ dry. Musculoskeletal: Capillary refill < 3 seconds. 14:02 General: The previous assessment is accurate, call light remains within reach. ss 15:20 Reassessment: Patient appears in no apparent distress at this time. assisted to em restroom, tolerated well, symptoms have improved. 15:48 Reassessment: Patient appears in no apparent distress at this time. Patient and/or em family updated on plan of care and expected duration. Pain level reassessed. Patient is alert, oriented x 3, equal unlabored respirations, skin warm/dry/pink. rates dizziness 2/10, tolerates laying down Patient states feeling better. Patient states symptoms have improved. 16:53 Reassessment: Patient appears in no apparent distress at this time. Patient and/or em family updated on plan of care and expected duration. Pain level reassessed. Patient is alert, oriented x 3, equal unlabored respirations, skin warm/dry/pink. Patient states feeling better. Patient states symptoms have improved. Vital Signs: 13:27 BP 122 / 69; Pulse 62; Resp 18 S; Temp 98.4(O); Pulse Ox 99% on R/A; Weight 81.65 kg aa5 (R); Height 4 ft. 11 in. (149.86 cm) (R); Pain 0/10; 14:05 BP 132 / 59 Supine; Pulse 57; em 14:05 BP 139 / 73 Sitting; Pulse 63; em 15:15 BP 130 / 69; Pulse 55; Resp 18; Pulse Ox 99% on R/A; em 15:59 BP 132 / 74; Pulse 61; Resp 18; Temp 97.9(O); Pulse Ox 100% on R/A; mh5 16:55 BP 122 / 73; Pulse 54; Resp 20; Pulse Ox 99% on R/A; em 13:27 Body Mass Index 36.36 (81.65 kg, 149.86 cm) aa5 ED Course: 13:19 Patient arrived in ED. mr 13:19 Jonathan Talbert MD is Private Physician. mr 13:25 Triage completed. aa5 13:27 Arm band placed on. aa5 13:28 Rad Hollins PA is PHCP. cp 13:28 Rad Nolasco MD is Attending Physician. cp 13:31 Ross Graves LVN is Primary Nurse. em 13:55 Patient has correct armband on for positive identification. Bed in low position. Call em light in reach. Side rails up X2. Adult w/ patient. Pulse ox on. NIBP on. 14:20 Initial lab(s) drawn, by me, sent to lab. Inserted saline lock: 22 gauge in right em antecubital area, using aseptic technique. Blood collected. 14:38 CT completed. Patient tolerated procedure well. Patient moved back from CT. mw3 14:38 CT Head Brain wo Cont In Process Unspecified. EDMS 16:36 Maverick Craig MD is Referral Physician. cp 16:53 No provider procedures requiring assistance completed. IV discontinued, intact, em bleeding controlled, No redness/swelling at site. Pressure dressing applied. Administered Medications: 14:30 Not Given (Patient Refused): Zofran 4 mg IVP once; over 2 minutes em 14:30 Drug: NS 0.9% 1000 ml Route: IV; Rate: 1 bolus; Site: right antecubital; em 16:57 Follow up: IV Status: Completed infusion; IV Intake: 1000ml em 14:31 Drug: Meclizine 25 mg Route: PO; em 15:30 Follow up: Response: No adverse reaction; Marked relief of symptoms em 16:00 Drug: Zofran 4 mg Route: IVP; Site: right antecubital; tw2 16:56 Follow up: Response: No adverse reaction; Nausea is decreased em 16:08 Drug: Diazepam 5 mg Route: PO; em 16:56 Follow up: Response: No adverse reaction; Marked relief of symptoms em Intake: 16:57 IV: 1000ml; Total: 1000ml. em Outcome: 16:36 Discharge ordered by . cp 16:54 Discharged to home via wheelchair. em 16:54 Condition: good 16:54 Discharge instructions given to patient, Instructed on discharge instructions, follow up and referral plans. medication usage, Demonstrated understanding of instructions, follow-up care, medications, Prescriptions given X 2. 16:59 Patient left the ED. em Signatures: Dispatcher [employer] JOCELYNN EliudLynn mr Star, Ross, HOME MANAGER HOME MANAGER em Elizabeth Barrera, RN RN aa5 Chayito Hassan RN RN ss Rad Hollins, Fang Alaniz cp, RN RN [address] [facility] Shona Burgos 3
--- NOTE | 2019-05-02 16:37 | EDPHYS ---
Physician Documentation [facility] Name: Luba Ng Age: 54 yrs Sex: Female : 1965 Arrival Date: 05/02/2019 Time: 13:19 Bed 19 Private MD: Jonathan Talbert ED Physician Rad Nolasco HPI: 05/02 13:55 This 54 yrs old Female presents to ER via Wheelchair with complaints of cp Vertigo. 13:55 The patient presents with dizziness, sense of spinning. cp 13:55 Onset: The symptoms/episode began/occurred few days ago. Context: just prior to the cp episode the patient experienced no apparent symptoms, waxes and wanes, became worse today. Associated signs and symptoms: Pertinent positives: nausea, Pertinent negatives: chest pain, focal weakness, head injury, headache, numbness, vomiting. Severity of symptoms: in the emergency department the symptoms are unchanged despite home interventions. Patient's baseline: Neuro: alert and fully oriented, Motor: paraplegic, Ambulation: unable to walk, uses wheelchair, Speech: normal, The patient has a previous history of polio. The patient has experienced similar episodes in the past, a few times, today's symptoms are similar, to when the patient was apparently diagnosed with vertigo. 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 - Social history:: Smoking status: Patient/guardian denies using tobacco. - Ebola Screening: : No symptoms or risks identified at this time. ROS: 14:05 Constitutional: Negative for body aches, chills, fever, poor PO intake. cp 14:05 Eyes: Negative for injury, pain, redness, and discharge. cp 14:05 Cardiovascular: Negative for chest pain, edema, palpitations. 14:05 Respiratory: Negative for cough, shortness of breath, wheezing. 14:05 Abdomen/GI: Positive for nausea, Negative for vomiting, diarrhea, constipation. 14:05 Neuro: Positive for dizziness, Negative for altered mental status, headache, speech changes, syncope, weakness. 14:05 All other systems are negative. Exam: 14:10 Constitutional: The patient appears in no acute distress, alert, awake, cp non-diaphoretic, non-toxic, well developed, well nourished. 14:10 Head/Face: Normocephalic, atraumatic. cp 14:10 Eyes: Pupils equal round and reactive to light, extra-ocular motions intact. Lids and cp lashes normal. Conjunctiva and sclera are non-icteric and not injected. Cornea within normal limits. Periorbital areas with no swelling, redness, or edema. ENT: Nares patent. No nasal discharge, no septal abnormalities noted. Tympanic membranes are normal and external auditory canals are clear. Oropharynx with no redness, swelling, or masses, exudates, or evidence of obstruction, uvula midline. Mucous membranes moist. Neck: Trachea midline, no thyromegaly or masses palpated, and no cervical lymphadenopathy. Supple, full range of motion without nuchal rigidity, or vertebral point tenderness. No Meningismus. Chest/axilla: Normal chest wall appearance and motion. Nontender with no deformity. No lesions are appreciated. 14:10 Cardiovascular: Rate: bradycardic, Rhythm: regular, Heart sounds: murmur, not cp appreciated, JVD: is not appreciated. 14:10 Respiratory: the patient does not display signs of respiratory distress, Respirations: normal, no use of accessory muscles, no retractions, no splinting, no tachypnea, labored breathing, is not present, Breath sounds: are clear throughout, no decreased breath sounds, no stridor, no wheezing. 14:10 Abdomen/GI: Inspection: abdomen appears normal, Palpation: abdomen is soft and non-tender, in all quadrants. 14:10 Skin: no rash present. 14:10 Neuro: Orientation: to person, place \T\ time. Mentation: is normal, Cerebellar function: Romberg testing is negative, normal finger to nose testing, Motor: no acute changes, paraplegic. 14:15 ECG was reviewed by the Attending Physician. cp Vital Signs: 13:27 BP 122 / 69; Pulse 62; Resp 18 S; Temp 98.4(O); Pulse Ox 99% on R/A; Weight 81.65 kg aa5 (R); Height 4 ft. 11 in. (149.86 cm) (R); Pain 0/10; 14:05 BP 132 / 59 Supine; Pulse 57; em 14:05 BP 139 / 73 Sitting; Pulse 63; em 15:15 BP 130 / 69; Pulse 55; Resp 18; Pulse Ox 99% on R/A; em 15:59 BP 132 / 74; Pulse 61; Resp 18; Temp 97.9(O); Pulse Ox 100% on R/A; mh5 16:55 BP 122 / 73; Pulse 54; Resp 20; Pulse Ox 99% on R/A; em 13:27 Body Mass Index 36.36 (81.65 kg, 149.86 cm) aa5 MDM: 13:40 Patient medically screened. tyson 14:00 Differential diagnosis: cardiac arrhythmia, CVA, generalized weakness, hypovolemia, cp idiopathic dizziness, TIA, vertigo. 16:35 Data reviewed: vital signs, nurses notes, lab test result(s), EKG, radiologic studies, cp CT scan, plain films, and as a result, I will discharge patient. 16:35 Test interpretation: by ED physician or midlevel provider: ECG. Counseling: I had a cp detailed discussion with the patient and/or guardian regarding: the historical points, exam findings, and any diagnostic results supporting the discharge/admit diagnosis, lab results, radiology results, the need for outpatient follow up, a neurologist, to return to the emergency department if symptoms worsen or persist or if there are any questions or concerns that arise at home. Response to treatment: the patient's symptoms have markedly improved after treatment, and as a result, I will discharge patient. 16:35 ED course: VSS. Patient reports symptoms improved. Will discharge to home for continued cp monitoring. 05/02 13:48 Order name: Basic Metabolic Panel; Complete Time: 15:39 cp 05/02 13:48 Order name: CBC with Diff; Complete Time: 15:39 cp 05/02 13:48 Order name: LFT's; Complete Time: 15:39 cp 05/02 13:48 Order name: Magnesium; Complete Time: 15:39 cp 05/02 13:48 Order name: NT PRO-BNP; Complete Time: 15:39 cp 05/02 13:48 Order name: PT-INR; Complete Time: 15:39 cp 05/02 13:48 Order name: Troponin (emerg Dept Use Only); Complete Time: 15:39 cp 05/02 13:48 Order name: CT Head Brain wo Cont; Complete Time: 15:39 cp 05/02 15:40 Interpretation: Report reviewed. 05/02 14:24 Order name: Urine Microscopic Only 05/02 15:44 Order name: Urine Dipstick--Ancillary (enter results) eb 05/02 16:07 Order name: Urine Culture EDAK 05/02 13:48 Order name: Orthostatics: lying and sitting; Complete Time: 14:21 05/02 13:48 Order name: EKG; Complete Time: 13:50 cp 05/02 13:48 Order name: Cardiac monitoring; Complete Time: 14:21 cp 05/02 13:48 Order name: EKG - Nurse/Tech; Complete Time: 14:21 05/02 13:48 Order name: IV Saline Lock; Complete Time: 14:21 05/02 13:48 Order name: Labs collected and sent; Complete Time: 15:00 05/02 13:48 Order name: O2 Per Protocol; Complete Time: 15:00 05/02 13:48 Order name: O2 Sat Monitoring; Complete Time: 15:00 05/02 14:24 Order name: Urine Dipstick-Ancillary (obtain specimen); Complete Time: 15:48 05/02 14:24 Order name: Urine Test (obtain specimen); Complete Time: 15:48 cp EC:15 Rate is 58 beats/min. Rhythm is regular. FL interval is normal. QRS interval is normal. cp QT interval is normal. T waves are Inverted in lead V2. Interpreted by me. Reviewed by me. Administered Medications: 14:30 Not Given (Patient Refused): Zofran 4 mg IVP once; over 2 minutes em 14:30 Drug: NS 0.9% 1000 ml Route: IV; Rate: 1 bolus; Site: right antecubital; em 16:57 Follow up: IV Status: Completed infusion; IV Intake: 1000ml em 14:31 Drug: Meclizine 25 mg Route: PO; em 15:30 Follow up: Response: No adverse reaction; Marked relief of symptoms em 16:00 Drug: Zofran 4 mg Route: IVP; Site: right antecubital; tw2 16:56 Follow up: Response: No adverse reaction; Nausea is decreased em 16:08 Drug: Diazepam 5 mg Route: PO; em 16:56 Follow up: Response: No adverse reaction; Marked relief of symptoms em Disposition: 05/02/19 16:36 Discharged to Home. Impression: Dizziness and giddiness. - Condition is Stable. - Discharge Instructions: Dizziness, Vertigo. - Prescriptions for Meclizine 25 mg Oral Tablet - take 1 tablet by ORAL route every 8 hours As needed; 30 tablet. Zofran 4 mg Oral Tablet - take 1 tablet by ORAL route every 12 hours As needed; 20 tablet. - Medication Reconciliation Form, Thank You Letter, Antibiotic Education, Prescription Opioid Use form. - Follow up: Maverick Craig MD; When: 2 - 3 days; Reason: Recheck today's complaints. - Problem is new. - Symptoms have improved. Addendum: 05/04/2019 08:34 Co-signature as Attending Physician, Rad Nolasco MD I agree with the assessment and c boudreaux plan of care. Signatures: Dispatcher [employer] EDRad Renee MD MD cha Munoz, Edgar, RIGGER APPRENTICE RIGGER APPRENTICE em Elizabeth Barrera, RN RN aa5 Rad Hollins PA PA Fang Quigley, RN RN tw2 Corrections: (The following items were deleted from the chart) 05/02 16:59 16:36 05/02/2019 16:36 Discharged to Home. Impression: Dizziness and giddiness. em Condition is Stable. Forms are Medication Reconciliation Form, Thank You Letter, Antibiotic Education, Prescription Opioid Use. Follow up: Maverick Craig; When: 2 - 3 days; Reason: Recheck today's complaints. Problem is new. Symptoms have improved. cp 05/03 16:17 05/02 14:10 Head/Face: Normocephalic, atraumatic. Eyes: Pupils equal round and reactive cp to light, extra-ocular motions intact. Lids and lashes normal. Conjunctiva and sclera are non-icteric and not injected. Cornea within normal limits. Periorbital areas with no swelling, redness, or edema. ENT: Nares patent. No nasal discharge, no septal abnormalities noted. Tympanic membranes are normal and external auditory canals are clear. Oropharynx with no redness, swelling, or masses, exudates, or evidence of obstruction, uvula midline. Mucous membranes moist. Chest/axilla: Normal chest wall appearance and motion. Nontender with no deformity. No lesions are appreciated. Cardiovascular: Regular rate and rhythm with a normal S1 and S2. No gallops, murmurs, or rubs. Normal PMI, no JVD. No pulse deficits. Respiratory: Lungs have equal breath sounds bilaterally, clear to auscultation and percussion. No rales, rhonchi or wheezes noted. No increased work of breathing, no retractions or nasal flaring. Abdomen/GI: Soft, non-tender, with normal bowel sounds. No distension or tympany. No guarding or rebound. No evidence of tenderness throughout. Skin: Warm, dry with normal turgor. Normal color with no rashes, no lesions, and no evidence of cellulitis. Neuro: Awake and alert, GCS 15, oriented to person, place, time, and situation. Cranial nerves II-XII grossly intact. Motor strength 5/5 in all extremities. Sensory grossly intact. Cerebellar exam normal. Normal gait. cp 05/03 16:05/02 13:55 The patient presents with dizziness, generalized weakness, lightheadedness, cp cp 05/03 16:05/02 13:55 Onset: The symptoms/episode began/occurred today, 1 hour(s) ago, cp cp 05/03 16:05/02 13:55 Context: occurred at a friend's home, just prior to the episode the patient cp experienced no apparent symptoms, cp 05/03 16:05/02 13:55 Associated signs and symptoms: Pertinent negatives: abdominal pain, chest cp pain, diaphoresis, focal weakness, headache, shortness of breath, syncope, vomiting, cp 05/03 16:05/02 13:55 Severity of symptoms: in the emergency department the symptoms have cp improved mildly, cp 05/03 16:05/02 13:55 Patient's baseline: Neuro: alert and fully oriented, Motor: no deficits, cp Ambulation: walks without assistance, Speech: normal, cp
[2019-05-02 17:08] VITALS: TEMP 97.9
[2019-05-02 17:09] VITALS: BP 122/73; O2SAT 99
--- NOTE | 2019-05-03 09:05 | EKG ---
Test Date: 2019-05-02 Test Time: 14:10:37 Process Safety Management Engineer: REHAN MEASUREMENT RESULTS: Intervals: Rate: 58 WY: 132 QRSD: 76 QT: 404 QTc: 396 Cooks: P: 39 WY: 132 QRS: 39 T: 31 INTERPRETIVE STATEMENTS: Sinus bradycardia with premature supraventricular complexes Abnormal ECG Compared to ECG 03/24/2007 11:10:48 Atrial premature complex(es) now present Sinus rhythm no longer present Electronically Signed On 05-03-19 09:04:32 CDT by Jamari Doran
== END 2019-05-02 16:59 | disposition home or self-care (01) ==
LOC: ER 13:15
DX: R42 Dizziness and giddiness (principal)
CPT/HCPCS: 96361; 93005; 87088; 85025; 87086; 80048; 36415; 83735; 85610; 80076; 84484; 83880; 70450; 96374; 99284; J7030; J2405; 81003; 81015

== ENCOUNTER 2021-02-19 14:40 | Emergency (ER) | payer BC, OTHER ==
--- OUTSIDE RECORDS SUMMARY | 2021-02-19 14:44 | XMS REPORT | Continuity of Care Document ---
:1965 Author Organization [facility] t Address Formerly [facility], [facility] [address] [place] [address] Care Team Providers Name Role Phone Alvaro Mullen Attending Clinician Theo Worley Attending Clinician Physician, Associated Attending Clinician Unavailable Problems Condition Condition Condition Status Onset Resolution Last Treating Co mments Source Name Details Category Date Date Treatment Clinician Date M75.122 - Diagnosis Active 2019-082020-08-01 Memoria COMPLETE 08-07 11:16:00 l ROTATR-CUF M75.122 00:01: Her fam F - COMPLETE 00 TEAR/RUPT ROTATR-CUF F TEAR/RUPT Active 06/07/2020 [facility] [place] CLOSED Diagnosis Active 2018-09-02 Mem oria REDUCTION 1-14 08:25:00 l PERCUTANEO CLOSED 00:00: Herm jaspreet US REDUCTION 00 PINNINHG PERCUTANEO US PINNINHG Active 08/18/2018 [facility] Udell UNK Diagnosis Active 2018-08-19 Mem oria 1-14 12:54:00 l UNK 00:00: Udell 00 Active 08/18/2018 [facility] Ricci POWER Diagnosis Active 2017-05-14 Mem oria WHEELCHAIR - 07:20:00 l EVAL POWER 00:00: Ricci WHEELCHAIR 00 EVAL Active 08/05/2000 [facility] Fall from Problem 2019-03-10 Me moria non-moving 13:53:20 l wheelchair Fall Mark Anthony n , initial from encounter non-moving wheelchair , initial encounter 03/10/2019 [place] Sleep Problem 2019-03-10 Memor ia apnea, 13:53:20 l unspecifie Sleep Marissa nn d apnea, unspecifie d 03/10/2019 [place] Personal Problem 2019-03-10 Mem oria history of 13:53:20 l poliomyeli Personal He rmann tis history of poliomyeli tis 03/10/2019 [facility] Other long Problem 2019-03-10 M emoria term 13:53:20 l (current) Other Mark Anthony n drug correction therapy (current) drug therapy 03/10/2019 [facility] PARAPLEGIA Diagnosis Active 2017-05-14 Memoria , 07:20:00 l UNSPECIFIE Mark Anthony n D PARAPLEGIA , UNSPECIFIE D Active [facility] Morbid Problem 2019-03-10 Memor ia (severe) 13:53:20 l obesity Morbid Ricci due to (severe) excess obesity calories due to excess calories 03/10/2019 [facility] History of Past Illness Condition Condition Condition Status Onset Resolution Last Treating Co mments Source Name Details Category Date Date Treatment Clinician Date Displaced Problem 2019-03-10 2019-03-10 Memoria fracture 08-27 13:53:20 13:53:20 l of 04:54: Udell proximal Displaced 06 phalanx of fracture left of little proximal finger, phalanx of initial left encounter little for closed finger, fracture initial encounter for closed fracture 9 03/10/2019 [facility] Allergies, Adverse Reactions, Alerts This patient has no known allergies or adverse reactions. Social History Social Habit Start Date Stop Date Quantity Comments Source Social History 2016-07-15 2016-07-15 [facility] 05:59:00 05:59:00 Smoking Status Start Date Stop Date Source Social History [facility] Medications Ordered Filled Start Stop Current Ordering Indication Dosage Frequency Signature Comments Components Source Medication Medication Date Date Medication? Clinician (SIG) Name Name Meloxicam Meloxicam 2020- No Aleks [address] [facility] 08[facility]13 [facility] 00[facility]:00 [facility] 00 :[facility] ent Clinics Fentanyl No Notes: Memoria 08-21 (Same as: l 14:33: Sublimaze) Preservat damien free. Hydromorpho No Notes: Dariusz flaco ne 08-21 Same as: l 14:33: Dilaudid Oxycodone No Notes: Memori a 08-21 (Same as: l 14:33: Roxicodone ) Diphenhydra No Notes: Dariusz flaco mine 08-21 (Same as: l 14:33: Benadryl) Albuterol No Notes: SEE Me moria 0.83 MG/ML 08-21 RT l Inhalant 14:33: DOCUMENTAT Her fam Solution 00 ION (Same as: Proventil) Naloxone No Notes: Memoria 08-21 Same as l 14:33: Narcan Flumazenil No Notes: Memor ia 08-21 (Same as: l 14:33: Romazicon) Acetaminoph No Notes: Max Memoria en 08-21 acetaminop l 14:33: hen 4000 mg/day (4 gm/day). (Same as: Tylenol Extra Strength) Hydralazine No Notes: Dariusz flaco 08-21 (Same as: l 14:33: Apresoline ) Push over 5 minutes Labetalol No Notes: Memori a 08-21 (Same as: l 14:33: Normodyne, Trandate) Push over 2 minutes Give bolus over 2-3 minutes. Ketorolac No 4 days Memor ia 08-21 l 14:33: MEDICATION WASTE Product Size: 30 mg Product Wasted: ___ mg Promethazin No 6.25 mg, Me moria e 08-21 Route: l 14:33: IVPB, ONCE, Dosing Weight 85.909, kg, PRN Nausea & Vomiting, Start date: 08/21/18 8:33:00 PHYSIOTHERAPY PRACTICE MANAGER Meperidine No Notes: Memor ia 08-21 (Same As: l 14:33: Demerol) Ondansetron No Notes: Dariusz flaco 08-21 (Same as: l 14:33: Zofran) MEDICATION WASTE Product Size: 4 mg Product Wasted: ___ mg fentaNYL No Route: IV, Mem oria (ANES) 08-21 Drug form: l 14:16: INJ, ONCE, Stop date: 08/21/18 8:16:00 PHYSIOTHERAPY PRACTICE MANAGER hydrALAZINE 2018-0 No Route: IV, Memoria (ANES) 1 Drug form: l 14:16: INJ, ONCE, Stop date: 08/21/18 8:16:00 PHYSIOTHERAPY PRACTICE MANAGER dexamethaso 2018-0 No Route: IV, Memoria ne (ANES) 08-21 Drug form: l 14:16: INJ, ONCE, Stop date: 08/21/18 8:16:00 PHYSIOTHERAPY PRACTICE MANAGER ketOROLAC 2018-0 No IV, ONCE Dariusz flaco (ANES) 08-21 l 14:16: Ricci 00 propofol 2018-0 No Route: IV, Mem oria (ANES) 08-21 Drug form: l 14:14: INJ, ONCE, Stop date: 08/21/18 8:14:00 PHYSIOTHERAPY PRACTICE MANAGER ondansetron 2018-0 No Route: IV, Memoria (ANES) 08-21 Drug form: l 14:14: INJ, ONCE, Stop date: 08/21/18 8:14:00 PHYSIOTHERAPY PRACTICE MANAGER midazolam 2018-0 No Route: IV, Me moria (ANES) 08-21 Drug form: l 14:14: SOLN, ONCE, Stop date: 08/21/18 8:14:00 PHYSIOTHERAPY PRACTICE MANAGER lidocaine 2018-0 No Route: IV, Me moria (ANES) 1 Drug form: l 14:04: INJ, ONCE, Stop date: 08/21/18 8:04:00 PHYSIOTHERAPY PRACTICE MANAGER ceFAZolin 2018- No Route: IV, Me moria (ANES) 1 Drug form: l 14:04: INJ, ONCE, Stop date: 08/21/18 8:04:00 PHYSIOTHERAPY PRACTICE MANAGER Lactated 2018-0 No Route: IV, Mem oria Ringers 08-21 Total l Injection 13:32: Volume: Marissa nn IV (ANES) 00 1,000, 1000 mL Start date: 08/21/18 7:32:00 PHYSIOTHERAPY PRACTICE MANAGER, Stop date: 08/21/18 8:32:00 PHYSIOTHERAPY PRACTICE MANAGER Sodium 2018-0 No 1,000 mL, Memori a Chloride 08-21 Rate: 25 l 0.9% IV 11:31: ml/hr, Ricci 1,000 mL 00 Infuse over: 40 hr, Route: IV, Dosing Weight 85.909 kg, Total Volume: 1,000, Start date: 08/21/18 5:31:00 PHYSIOTHERAPY PRACTICE MANAGER, Duration: 30 day, Stop date: 09/20/18 5:30:00 PHYSIOTHERAPY PRACTICE MANAGER, 1.93, m2 Calcium 2019-0 No 1,000 mL, Memor ia Chloride 1-17 Rate: 25 l 0.0014 11:31: ml/hr, Ricci MEQ/ML / 00 Infuse Potassium over: 40 Chloride hr, Route: 0.004 IV, Dosing MEQ/ML / Weight Sodium 85.909 kg, Chloride Total 0.103 Volume: MEQ/ML / 1,000, Sodium Start Lactate date: 0.028 08/21/18 MEQ/ML 5:31:00 Injectable PHYSIOTHERAPY PRACTICE MANAGER, Solution Duration: 30 day, Stop date: 09/20/18 5:30:00 PHYSIOTHERAPY PRACTICE MANAGER, 1.93, m2 Vitamin D3 2019-0 Yes 1,000 Memori a 1-17 IntlUnit, l 11:29: PO, Daily, Udell 00 0 Refill(s) Vitamin B12 2019-0 Yes 1,000 Memor ia 1000 mcg/mL 1-17 microgram, l injectable 11:29: IM, Udell solution 00 qMonth, 0 Refill(s) Pantoprazol Pantoprazol Yes Aleks TAKE [address] [facility] e Sodium e Sodium Ferrell TABLET BY Cynthia kes - MOUTH Memoria EVERY DAY l Outpati ent Clinics Neomycin-Po Neomycin-Po Yes Aleks APPLY TO [facility] lymyxin-Dex lymyxin-Dex [facility]rell INCISION [facility], [facility] AREA THREE Memoria TIMES A l DAY. Outpati ent Clinics Cyanocobala Cyanocobala Yes Aleks INJECT [facility] min min Ferrell INTO THE [facility] - MUSCLE 1 Memoria MILLILITER l EVERY 30 Outpati DAYS ent Clinics Meclizine Meclizine Yes Aleks TAKE [address] [facility] HCl HCl Ferrell TABLET BY [facility]ukes - MOUTH Memoria THREE l TIMES A Outpati DAY ent NEEDED Clinics Omeprazole Omeprazole Yes Aleks TAKE [address] [facility] Ferrell CAPSULE BY Lukes - MOUTH Memoria EVERY DAY l IN THE Outpati MORNING ent Clinics Ondansetron Ondansetron Yes Aleks TAKE [address] [facility] HCl HCl Ferrell TABLET BY Lukes - MOUTH Memoria EVERY 12 l HOURS Outpati NEEDED ent Clinics Clindamycin Clindamycin Yes Aleks not [facility] HCl HCl [facility]rell defined [facility] - Memoria l Outpati ent Clinics Sulfamethox Sulfamethox Yes Aleks not [facility] azole azole [facility] defined [facility] - [facility]oria l Outpati ent Clinics Nitrofurant Nitrofurant Yes Aleks TAKE [address] [facility] oin Monohyd oin Monohyd [facility]rell CAPSULE [facility] - Macro Macro (100 MG) Memoria BY MOUTH l EVERY 12 Outpati HOURS FOR ent 3 DAYS Clinics WITH FOOD Tramadol Tramadol Yes Aleks (Schedule [facility] HCl HCl Ferrell IV Drug) [facility] - TAKE 1 Memoria TABLET BY l MOUTH Outpati EVERY 8 ent HOURS Clinics NEEDED Azelastine Azelastine Yes Aleks INSTILL [address] [facility] HCl HCl Ferrell DROP INTO Lukes - AFFECTED Memoria EYE TWICE l A DAY Outpati ent Clinics Erythromyci Erythromyci Yes Aleks APPLY [address] [facility] n n Ferrell CENTIMETER [facility]ukes - TO LOWER Memoria EYELID OF l AFFECTED Outpati EYE 3 ent TIMES A Clinics DAY UNTIL DIRECTED TO STOP Meloxicam Meloxicam Yes Aleks TAKE [address] [facility] Ferrell TABLET BY Lukes - MOUTH Memoria TWICE A l DAY Outpati NEEDED ent Clinics Xiidra Xiidra Yes Aleks INSTILL [address] [facility] Ferrell DROP INTO Lukes - BOTH EYES Memoria TWICE A l DAY Outpati ent Clinics Metoclopram Metoclopram Yes Aleks [address] [facility] [address] garland HCl garland HCl Ferrell BY MOUTH. Luke s - USE Memoria DIRECTED l PER YOUR Outpati COLONOSCOP ent Y PREP Clinics PACKET Hydrocodone Hydrocodone Yes Aleks (Schedule [facility] -Acetaminop -Acetaminop Ferrell II Drug) Lukes - hen hen TAKE 1 Memoria TABLET BY l MOUTH Outpati EVERY DAY ent Clinics Terbinafine Terbinafine Yes Aleks TAKE [address] [facility] HCl HCl Ferrell TABLET BY Lukes - MOUTH Memoria EVERY DAY l Outpati ent Clinics Pregabalin Pregabalin Yes Aleks (Schedule [facility] Ferrell V Drug) [facility]ukes - TAKE 1 Memoria CAPSULE BY l MOUTH Outpati THREE ent TIMES A Clinics DAY Vital Signs Vital Name Observation Time Observation Value Comments Source Respitory Rate 2018-08-21 15:20:00 Yasmine Chisholm Systolic (mm Hg) 2018-08-21 15:20:00 Dariusz Wynne Diastolic (mm Hg) 2018-08-21 15:20:00 Mem orial Udell Respitory Rate 2018-08-21 14:46:00 Memori al [place] Systolic (mm Hg) 2018-08-21 14:46:00 Dariusz rial Ricci Diastolic (mm Hg) 2018-08-21 14:46:00 Mem orial [place] Systolic (mm Hg) 2018-08-21 14:45:00 Dariusz rial Ricci Diastolic (mm Hg) 2018-08-21 14:45:00 Mem orial [place] Respitory Rate 2018-08-21 14:45:00 Memori al [place] Heart Rate 2018-08-19 20:04:00 [facility] [place] Temperature Oral (F) 2018-08-19 20:04:00 98.1 F [facility] Weight 2018-08-19 19:34:00 [facility] BMI Calculated 2018-08-19 19:34:00 Memori al Ricci Height 2018-08-19 19:34:00 149.86 cm [facility] Weight 2016-06-15 17:46:00 [facility] BMI Calculated 2016-06-15 17:46:00 Memori al [place] Height 2016-06-15 17:46:00 149.86 cm [facility] Systolic (mm Hg) 2016-06-15 17:46:00 Dariusz rial Udell Diastolic (mm Hg) 2016-06-15 17:46:00 Mem orial [place] Heart Rate 2016-06-15 17:46:00 [facility] Procedures Procedure Date / Time Performing Clinician Source Performed Injection procedure for 2020-06-10 20:17:37 Dariusz rial U[place]ell shoulder arthrography or enhanced CT/MRI shoulder arthrography Arthroscopy of [facility] knee<sup>1</sup> Caesarean [facility] section<sup>3</sup> Cholecystectomy [facility] History of sleeve [facility] Marissa nn gastrectomy Laparoscopic adjustable [facility] gastric banding Ligament reconstruction [facility] Encounters Start End Encounter Admission Attending Care Care Encounter Source Date/Time Date/Time Type Type Clinicians Facility Department ID 2020-06-10 2020-06-10 Outpatient [facility] [id number] 12:38:00 23:59:00 Alfredo John 00 2019-11-24 2019-11-24 [facility] [id number] [facility] 09:38:00 09:38:00 [facility] 2019-11-20 2019-11-20 [facility] [id number] [facility] 10:15:00 10:15:00 [facility] 2019-09-22 2019-09-22 [facility] [id number] [facility] 09:35:00 09:35:00 [facility] 2019-09-15 2019-09-15 [facility] [id number] [facility] 13:04:00 13:04:00 [facility] 2019-08-13 2019-08-13 [facility] [id number] [facility] 10:00:00 10:00:00 [facility] 2018-08-21 2018-08-21 Outpatient JESSE Venegas [id number] 05:09:00 09:25:00 Chris 00 2016-06-15 2016-07-14 Outpatient Physician, AVRIL MACKENZIE [id number] 08:00:00 23:59:00 Non 00 Associated Results This patient has no known results.
[2021-02-19] MEDS ORDERED: LIDOCAINE 4% PATCH ONE (16:00)
[2021-02-19] MEDS ORDERED: dexAMETHasone 10 MG/ML VIAL ONE (16:00)
[2021-02-19] MEDS ORDERED: KETOROLAC 30 MG/ML INJ ONE (16:00)
--- NOTE | 2021-02-19 16:02 | RAD REPORT ---
EXAM DESCRIPTION: CT - CTHCSPWOC - 02/19/2021 3:55 pm CLINICAL HISTORY: Trauma, head and neck injury. PAIN COMPARISON: No comparisons TECHNIQUE: Axial 5 mm thick images of the head were obtained. Axial 2 mm thick images of the cervical spine were obtained with sagittal and coronal reconstruction images generated and reviewed. All CT scans are performed using dose optimization technique as appropriate and may include automated exposure control or mA/KV adjustment according to patient size. FINDINGS: CT HEAD WITHOUT CONTRAST: No acute hemorrhage, hydrocephalus or extra-axial collection is identified.No areas of brain edema or midline shift. The paranasal sinuses and mastoids are clear.The calvarium is intact. CT CERVICAL SPINE WITHOUT CONTRAST: No fracture or subluxation.Mild mid and lower cervical degenerative changes.No prevertebral soft tiss ues swelling is identified. IMPRESSION: No acute intracranial or cervical spine findings. Mild mid and lower cervical spondylosis.
[2021-02-19] MEDS ORDERED: HYDROCODONE/APAP 10/325 TAB ONE (16:59)
--- NOTE | 2021-02-19 17:05 | EDPHYS ---
Physician Documentation [facility] Name: Luba Ng Age: 55 yrs Sex: Female : 1965 Arrival Date: 02/19/2021 Time: 14:41 Bed 2 Private MD: ED Physician Tevin Morales HPI: 02/19 15:32 This 55 yrs old Female presents to ER via Wheelchair with complaints of pm1 Shoulder/Arm Pain L, Numbness Of Hand. 15:32 Onset: The symptoms/episode began/occurred today. pm1 15:32 The patient presents to the emergency department with paresthesias of the left hand and pm1 pain to left side of neck and bicep. Context: occurred at home. Associated signs and symptoms: Pertinent negatives: fever, headache, neck stiffness, weakness, Chest pain. Severity of symptoms: in the emergency department the symptoms are unchanged. Patient's baseline: Neuro: alert and fully oriented, Motor: no deficits, Ambulation: walks without assistance, Speech: normal, The patient has a previous history of Polio. The patient has not experienced similar symptoms in the past. The patient has not recently seen a physician. Historical: - Allergies: 15:00 No Known Allergies; ll1 - PMHx: 15:00 Herniated disc; Polio; ll1 - PSHx: 15:00 hysterectomy, both knee SX; Cholecystectomy; vertical gastrectomy; ll1 - Immunization history:: Client reports receiving the 2nd dose of the Covid vaccine, Flu vaccine is up to date. - Social history:: Smoking status: Patient denies any tobacco usage or history of. ROS: 15:32 Constitutional: Negative for fever, chills, and weight loss, Cardiovascular: Negative pm1 for chest pain, palpitations, and edema, Respiratory: Negative for shortness of breath, cough, wheezing, and pleuritic chest pain. 15:32 Skin: Negative for injury, rash, and discoloration. 15:32 Neck: Positive for of the left trapezius, Pain. 15:32 MS/extremity: Positive for pain, of the left antecubital area, Negative for decreased range of motion, deformity. 15:32 Neuro: Positive for numbness, tingling, of the left hand. Exam: 15:32 Constitutional: This is a well developed, well nourished patient who is awake, alert, pm1 and in no acute distress. Head/Face: Normocephalic, atraumatic. 15:32 Back: No spinal tenderness. No costovertebral tenderness. Full range of motion. Skin: Warm, dry with normal turgor. Normal color with no rashes, no lesions, and no evidence of cellulitis. MS/ Extremity: Pulses equal, no cyanosis. Neurovascular intact. Full, normal range of motion. 15:32 Neck: External neck: tenderness, of the left trapezius, Palpation of left trapezius reproduces numbness tingling and pain to left antecubital and left hand. 15:32 Cardiovascular: Exam negative for acute changes, Rate: normal, Rhythm: regular, Pulses: no pulse deficits are appreciated. 15:32 Respiratory: Exam negative for acute changes, respiratory distress, shortness of breath. 15:32 Neuro: Exam negative for acute changes, Orientation: is normal, Mentation: is normal, Motor: is normal, moves all fours. Vital Signs: 15:01 BP 174 / 84; Pulse 78; Resp 17; Temp 97.4; Pulse Ox 97% ; Weight 86.18 kg; Height 4 ft. ll1 11 in. (149.86 cm); Pain 10/10; 16:36 BP 143 / 81; Pulse 71; Resp 18; Pulse Ox 100% on R/A; ph 15:01 Body Mass Index 38.37 (86.18 kg, 149.86 cm) ll1 MDM: 15:30 Patient medically screened. pm1 16:24 Counseling: I had a detailed discussion with the patient and/or guardian regarding: the pm1 historical points, exam findings, and any diagnostic results supporting the discharge/admit diagnosis. 16:25 Data reviewed: vital signs. Data interpreted: Pulse oximetry: on room air is 97 %. pm1 Interpretation: normal. Counseling: I had a detailed discussion with the patient and/or guardian regarding: radiology results, the need for outpatient follow up, a neurosurgeon. 02/19 15:31 Order name: CT Head C Spine; Complete Time: 16:12 pm1 Administered Medications: 15:35 CANCELLED (Physician Discretion): HYDROcodone-acetaminophen 5 mg-325 mg 1 tabs PO once; pm1 RASS on ADMIN: Combtv4, Very Agttd3, Agttd2, Rstlss1, AlertClm0, Drwsy-1, Lt Sdtn-2, Mod Sdtn-3, Dp Sdtn-4, UnArsble-5 15:43 Drug: Decadron (dexamethasone) 10 mg Route: IM; Site: right gluteus; sv 15:58 Follow up: Response: No adverse reaction sv 15:43 Drug: Ketorolac 30 mg Route: IM; Site: right gluteus; sv 15:58 Follow up: Response: No adverse reaction sv 15:43 Drug: Lidoderm Patch 5 % (700 mg/patch) 1 patches Route: Topical; Site: affected area; sv 16:39 Drug: [place] (HYDROcodone-acetaminophen) 10 mg-325 mg 1 tabs {Note: rass1.} Route: PO; sv 17:30 Follow up: Response: No adverse reaction; Marked relief of symptoms; Pain is decreased; sv RASS: Alert and Calm (0) Disposition: 17:35 Co-signature as Attending Physician, Tevin Morales MD. rn Disposition Summary: 02/19/21 17:05 Discharge Ordered Location: Home pm1 Problem: new pm1 Symptoms: have improved pm1 Condition: Stable pm1 Diagnosis - Cervical disc disorder with radiculopathy pm1 Followup: pm1 - With: Emergency Department - When: As needed - Reason: Worsening of condition Followup: pm1 - With: Private Physician - When: 2 - 3 days - Reason: Recheck today's complaints, Continuance of care, Re-evaluation by your physician Discharge Instructions: - Discharge Summary Sheet pm1 - Cervical Radiculopathy pm1 Forms: - Medication Reconciliation Form pm1 - Thank You Letter pm1 - Antibiotic Education pm1 - Prescription Opioid Use pm1 Prescriptions: - Prednisone 20 mg Oral Tablet - take 1 tablet by ORAL route every 12 hours for 5 days; 10 tablet; Refills: 0, pm1 Product Selection Permitted - Lidoderm 5 % Topical adhesive patch,medicated - apply 1 patch by TRANSDERMAL route once daily As needed 12 hours on and 12 pm1 hours off in a 24 hour period; 1 patch; Refills: 0, Product Selection Permitted - Skelaxin 800 mg Oral Tablet - take 1 tablet by ORAL route every 8 hours As needed; 15 tablet; Refills: 0, pm1 Product Selection Permitted Signatures: Dispatcher [employer] Danna Cochran, RN Tevin العراقي MD MD rn Marinas, Patrick, AIRPORT OPERATIONS COORDINATOR AIRPORT OPERATIONS COORDINATOR pm1 Darwin Horvath RN RN ll1 Corrections: (The following items were deleted from the chart) 15:35 15:35 HYDROcodone-acetaminophen 5 mg-325 mg 1 tabs PO once; RASS on ADMIN: Combtv4, pm1 Very Agttd3, Agttd2, Rstlss1, AlertClm0, Drwsy-1, Lt Sdtn-2, Mod Sdtn-3, Dp Sdtn-4, UnArsble-5 ordered. pm1
--- NOTE | 2021-02-19 17:05 | ER ---
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 Numbness and tingling to L hand. No trauma. Coronavirus screen: Client denies travel out of the [place] in the last 14 days. At this time, the client does not indicate any symptoms associated with coronavirus-19. Ebola Screen: Patient denies travel to an Ebola-affected area in the 21 days before illness onset. Initial Sepsis Screen: Does the patient meet any 2 criteria? No. Patient's initial sepsis screen is negative. Does the patient have a suspected source of infection? No. Patient's initial sepsis screen is negative. Risk Assessment: Do you want to hurt yourself or someone else? Patient reports no desire to harm self or others. Onset of symptoms was February 19, 2021. 15:01 Method Of Arrival: Wheelchair ll1 15:01 Acuity: RUBI 3 ll1 Historical: - Allergies: 15:00 No Known Allergies; ll1 - PMHx: 15:00 Herniated disc; Polio; ll1 - PSHx: 15:00 hysterectomy, both knee SX; Cholecystectomy; vertical gastrectomy; ll1 - Immunization history:: Client reports receiving the 2nd dose of the Covid vaccine, Flu vaccine is up to date. - Social history:: Smoking status: Patient denies any tobacco usage or history of. Screenin:12 Abuse screen: Denies threats or abuse. Denies injuries from another. Nutritional sv screening: No deficits noted. Tuberculosis screening: No symptoms or risk factors identified. Fall Risk None identified. Assessment: 15:25 General: Appears in no apparent distress. uncomfortable, well developed, Behavior is sv calm, cooperative, appropriate for age. Pain: Complains of pain in left trapezius and left posterior aspect of neck Pain radiates to left hand and left arm Pain currently is 10 out of 10 on a pain scale. Quality of pain is described as numb, Is continuous. Neuro: Level of Consciousness is awake, alert, obeys commands, Oriented to person, place, time, situation. Respiratory: Respiratory effort is even, unlabored, Respiratory pattern is regular, symmetrical. Derm: Skin is pink, warm \T\ dry. Musculoskeletal:. 16:23 Reassessment: Patient appears in no apparent distress at this time. Patient and/or sv family updated on plan of care and expected duration. Pain level reassessed. Patient is alert, oriented x 3, equal unlabored respirations, skin warm/dry/pink. Kenton WILLIAM at the bedside speaking to pt regarding results. 16:43 Reassessment: Patient appears in no apparent distress at this time. No changes from previously documented assessment. Patient and/or family updated on plan of care and expected duration. Pain level reassessed. Patient is alert, oriented x 3, equal unlabored respirations, skin warm/dry/pink. 17:33 Reassessment: Patient appears in no apparent distress at this time. Patient and/or sv family updated on plan of care and expected duration. Pain level reassessed. Patient is alert, oriented x 3, equal unlabored respirations, skin warm/dry/pink. Patient states symptoms have improved. Vital Signs: 15:01 BP 174 / 84; Pulse 78; Resp 17; Temp 97.4; Pulse Ox 97% ; Weight 86.18 kg; Height 4 ft. ll1 11 in. (149.86 cm); Pain 10/10; 16:36 BP 143 / 81; Pulse 71; Resp 18; Pulse Ox 100% on R/A; ph 15:01 Body Mass Index 38.37 (86.18 kg, 149.86 cm) ll1 ED Course: 14:41 Patient arrived in ED. ds1 15:01 Arm band placed on. ll1 15:02 Triage completed. ll1 15:03 Patient placed in an exam room, on a stretcher. ll1 15:08 [facility] pm1 15:08 Tevin Morales MD is Attending Physician. pm1 15:12 Danna Billingsley RN is Primary Nurse. sv 15:12 Patient has correct armband on for positive identification. Bed in low position. Call light in reach. 15:29 Nurse Practitioner and/or Physician Research Group Director to see patient. sv 15:[address] Scan. sv 15:55 CT Head C Spine In Process Unspecified. EDMS 15:58 Awaiting radiology results. sv 17:33 No provider procedures requiring assistance completed. Patient did not have IV access sv during this emergency room visit. Administered Medications: 15:35 CANCELLED (Physician Discretion): HYDROcodone-acetaminophen 5 mg-325 mg 1 tabs PO once; pm1 RASS on ADMIN: Combtv4, Very Agttd3, Agttd2, Rstlss1, AlertClm0, Drwsy-1, Lt Sdtn-2, Mod Sdtn-3, Dp Sdtn-4, UnArsble-5 15:43 Drug: Decadron (dexamethasone) 10 mg Route: IM; Site: right gluteus; sv 15:58 Follow up: Response: No adverse reaction sv 15:43 Drug: Ketorolac 30 mg Route: IM; Site: right gluteus; sv 15:58 Follow up: Response: No adverse reaction sv 15:43 Drug: Lidoderm Patch 5 % (700 mg/patch) 1 patches Route: Topical; Site: affected area; sv 16:39 Drug: Lee (HYDROcodone-acetaminophen) 10 mg-325 mg 1 tabs {Note: rass1.} Route: PO; sv 17:30 Follow up: Response: No adverse reaction; Marked relief of symptoms; Pain is decreased; sv RASS: Alert and Calm (0) Outcome: 17:05 Discharge ordered by MD. pm1 17:34 Discharged to home via wheelchair, with family. sv 17:34 Condition: stable 17:34 Discharge instructions given to patient, Instructed on discharge instructions, follow up and referral plans. medication usage, Demonstrated understanding of instructions, follow-up care, medications, Prescriptions given X 3. 17:34 Patient left the ED. sv Signatures: Dispatcher [employer] EDMS Danna Billingsley RN RN Lily Mcghee ds1 Nancie Yost RN RN Kenton Stock, [employer] pm1 Darwin Horvath RN RN ll1 Corrections: (The following items were deleted from the chart) 15:34 15:32 General: Appears in no apparent distress. 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 Full function Speech is normal, Facial symmetry appears normal, Pupils are PERRLA, Denies weakness blurred vision dizziness, headache ph 15:34 15:32 Cardiovascular: Capillary refill < 3 seconds in bilateral fingers Patient's skin ph is warm and dry. ph 15:34 15:32 Respiratory: Airway is patent Respiratory effort is even, unlabored, Respiratory ph pattern is regular, symmetrical, ph 15:34 15:32 GI: No signs and/or symptoms were reported involving the gastrointestinal system. ph ph 15:34 15:32 Derm: Skin is intact, is healthy with good turgor, Skin is pink, warm \T\ dry. ph ph 15:34 15:32 Musculoskeletal: Circulation, motion, and sensation intact. Range of motion: ph intact in all extremities, ph
[2021-02-19 17:44] VITALS: BP 143/81; O2SAT 100
[2021-02-19 17:46] VITALS: TEMP 97.4
== END 2021-02-19 17:34 | disposition home or self-care (01) ==
LOC: ER 14:40
DX: M50.10 Cervical disc disorder with radiculopathy, unspecified cervical region (principal)
CPT/HCPCS: 70450; 72125; 96372; 99283; J1100

== ENCOUNTER 2021-12-04 08:01 | Emergency (ER) | payer OTHER ==
--- OUTSIDE RECORDS SUMMARY | 2021-12-04 08:04 | XMS REPORT | Continuity of Care Document ---
:1965 Author Organization [facility] t Address [address] [place] [address] [address] [place] [address] Care Team Providers Name Role Phone Yumiko Montenegro MD Primary Care Physician May Attending Clinician Unavailable Carmen Attending Clinician Unavailable Mati Hope Attending Clinician Unavailable Gali Attending Clinician Unavailable ANCA Attending Clinician Unavailable MAY Attending Clinician Unavailable YUMIKO MONTENEGRO Attending Clinician Unavailable LAB90 Attending Clinician Unavailable Regino LYNCH Attending Clinician Unavailable Payers Payer Name Policy Type Policy Number Effective Date Expiration Date S erika [employer] ELIM IRA HMO 7 [id number] 2021 00:00:00 Problems Condition Condition Condition Status Onset Resolution Last Treating Co mments Source Name Details Category Date Date Treatment Clinician Date Chronic Chronic Disease Active 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 00:00: 00 Current Current Disease Active Faith mild mild 4-04 Seybold episode of episode of 00:00: major major 00 depressive depressive disorder disorder Functional Functional Disease Active K elsey urinary urinary 4-04 Seybold incontinen incontinen 00:00: ce ce 00 Gastroesop Gastroesop Disease Active K elsey hageal hageal 4-04 Seybold reflux reflux 00:00: disease disease 00 without without esophagiti esophagiti s s BRIGHT BRIGHT Disease Active Faith (obstructi (obstructi 11-06 Se ybold ve sleep ve sleep 00:00: apnea) apnea) 00 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 History of Gastric sleeve Murmur Murmur Disease Active Faith 4-04 Seybold 00:00: 00 Class 2 Class 2 Disease Active Faith obesity obesity 11-06 Seybold due to due to 00:00: excess excess 00 calories calories without without serious serious comorbidit comorbidit y with y with body mass body mass index index (BMI) of (BMI) of 36.0 to 36.0 to 36.9 in 36.9 in adult adult History of History of Disease Active K elsey recurrent recurrent 11-06 Seyb old UTI UTI 00:00: (urinary (urinary 00 tract tract infection) infection) Allergies, Adverse Reactions, Alerts This patient has no known allergies or adverse reactions. Social History Social Habit Start Date Stop Date Quantity Comments Source History SDOH Faith franco Alcohol Binge History SDOH Faith Mendoza ld Alcohol Frequency History SDOH Faith Mendoza ld Alcohol Std Drinks Alcohol Comment 2021-11-06 2021-11-06 rarely Faith ybold 00:00:00 00:00:00 Education 2021-11-06 2021-11-06 12 Faith Seybold 00:00:00 00:00:00 Tobacco use and 2021-11-06 2021-11-06 Smokeless tobacco Ke veroey Seybold exposure 00:00:00 00:00:00 non-user Alcohol intake 2021-11-06 2021-11-06 Current drinker [place] sarkar Seybold 00:00:00 00:00:00 of alcohol (finding) Sex [birth year] At [birth year] Faith Se ybold 00:00:00 00:00:00 Smoking Status Start Date Stop Date Source Never smoked tobacco Faith Correayb christine Medications Ordered Filled Start Stop Current Ordering Indication Dosage Frequency Signature Comments Components Source Medication Medication Date Date Medication? Clinician (SIG) Name Name Azelastine 2021- No INSTILL 1 K elsey HCl 0.05 % 11-06 DROP INTO Sey bold ophthalmic 08:57: 00:00 AFFECTED Solution 14 :00 EYE TWICE A DAY Ibuprofen 2021- No 400mg Q.25D Take 400 K elsey 200 MG oral 11-06 mg by Seybol d Tablet 08:31: 00:00 mouth 19 :00 every 6 hours as needed for pain CYANOCOBALA 2021- No 1000mg Inject K elsey MIN IJ 11-06 1,000 mg Seybold 08:31: 00:00 as 07 :00 directed once a month Tramadol No (Schedule Rebel sey HCl 50 MG 11-06 IV Drug) Seybo ld oral Tablet 08:31: 00:00 TAKE 1 00 :00 TABLET BY MOUTH EVERY 8 HOURS NEEDED Pregabalin 2021- No (Schedule K elsey 75 MG oral 11-06 V Drug) Seybo ld Capsule 08:30: 00:00 TAKE 1 50 :00 CAPSULE BY MOUTH THREE TIMES A DAY Norethin-Et 2021- No Take by Tino palencia h 11-06 mouth Seybold Estradiol-F 08:30: 00:00 e 0.4-35 15 :00 MG-MCG oral Chewable Tablet Lifitegrast 2021- No 1[drp] Place 1 Faith (Xiidra) 5 11-06 drop into Sey bold % 08:30: 00:00 both eyes ophthalmic 03 :00 2 times Solution daily busPIRone Yes 1{tbl} Take 1 Matilda ey HCl 10 MG -04 tablet by Seybo ld oral Tablet 08:29: mouth 3 38 times daily Fluoxetine 2021- No Faith HCl 40 MG -11 06- Seybold oral 08:29: 00:00 Capsule 38 :00 BUSPIRONE 2021- No Faith HCL OR -11 06- Seybold 08:28: 00:00 56 :00 Acetaminoph Yes 1000mg Q4H Take 1,000 Faith en 4-04 mg by Seybold (TYLENOL) 08:28: mouth 500 MG oral 52 every 4 Tablet hours as needed for pain Pregabalin 2021-0 Yes [id number] 75mg Take 1 Faith (Lyrica) 75 4-04 capsule Seybo ld MG oral 00:00: (75 mg Capsule 00 total) by mouth 3 times daily Tramadol 2021-0 Yes [id number] 50mg Q.25D Take 1 K elsey HCl 50 MG 4-04 tablet (50 Seyb old oral Tablet 00:00: mg total) 00 by mouth every 6 hours as needed for pain Fluoxetine Yes TAKE 1 Kelse y HCl 40 MG 3-22 CAPSULE BY Seyb old oral 00:00: MOUTH Capsule 00 EVERY DAY FOR 90 DAYS Solifenacin Yes 10mg Take 10 mg Faith Succinate 3-22 by mouth Seybol d 10 MG oral 00:00: in the Tablet 00 morning and 10 mg in the evening. FOR 90 DAYS. Eszopiclone 2021- No TAKE 1 Rebel sey 3 MG oral 3-06 04-04 TABLET BY Seyb old Tablet 00:00: 00:00 MOUTH 00 :00 EVERY DAY IMMEDIATEL Y BEFORE BEDTIME Omeprazole Yes TAKE 1 Kelse y 40 MG oral 3-02 CAPSULE BY Sey bold Delayed 00:00: MOUTH Release 00 EVERY DAY Capsule IN THE MORNING ORAL 90 DAYS Pantoprazol 0 2021- No 40mg Take 40 mg Faith e Sodium 40 3-02 04-04 by mouth Sey bold MG oral 00:00: 00:00 daily Tablet 00 :00 Delayed Response Cyanocobala Yes INJECT Matilda ey min (VIT 2-07 INTO THE Seybold B12) 1000 00:00: MUSCLE 1 MCG/ML 00 MILLILITER injection EVERY 30 Solution DAYS Cephalexin 2021-0 2021- No 500mg Take 500 K elsey 500 MG oral 1-30 04-04 mg by Seybol d Capsule 00:00: 00:00 mouth 00 :00 every 12 hours Phentermine 2021-0 2021- No 1{tbl} Take 1 K elsey HCl 37.5 MG 1-30 04-04 tablet by Se ybold oral Tablet 00:00: 00:00 mouth 00 :00 daily Meloxicam Meloxicam 2020-0 2020- No Aleks [address] [facility] 1-09 02-08 [facility] Pantoprazol Pantoprazol Yes Aleks TAKE [address] [facility] e Sodium e Sodium Ferrell TABLET BY Cynthia kes - MOUTH [facility] EVERY DAY l [facility]pat[facility] ent Clinics Neomycin-Po Neomycin-Po Yes Aleks APPLY [facility] lymyxin-Dex lymyxin-Dex [facility] THREE Memoria TIMES A l DAY. [...] Outpati THREE ent TIMES A Clinics DAY Immunizations Ordered Immunization Filled Immunization Date Status Commen ts Source Name Name Pneumococcal 2021-06-04 Completed Faith Mendoza ld Vaccine, Conjugate 00:00:00 13 Influenza, 2021-05-05 Completed Faith Chacon Injectable, Mdck, 00:00:00 Quadrivalent With Preservatie Vital Signs Vital Name Observation Time Observation Value Comments Source Systolic blood pressure 2021-11-06 13:20:00 132 mm[Hg] Faith Chacon Diastolic blood 2021-11-06 13:20:00 87 mm[Hg] Shaw[place] Chacon pressure Heart rate 2021-11-06 13:20:00 65 /min Faith costello Body temperature 2021-11-06 13:20:00 36.72 Rachelle Matilda Chacon Respiratory rate 2021-11-06 13:20:00 14 /min Matilda Chacon Body height 2021-11-06 13:20:00 149.9 cm Faith costello Body weight 2021-11-06 13:20:00 81.647 kg Faith costello BMI 2021-11-06 13:20:00 36.36 kg/m2 Faith costello Procedures This patient has no known procedures. Encounters Start End Encounter Admission Attending Care Care Encounter Source Date/Time Date/Time Type Type Clinicians Facility Department ID 2021-11-14 Outpatient May, [facility] [id number] [facility] 15:38[facility]00 [facility] 2021-10-30 Outpatient Morales, [facility] [id number] [facility] 12:44:00 [facility] 2021-09-07 Outpatient Morales, [facility] [id number] [facility] 14:27:02 [facility] 2021-08-30 Outpatient Jayy, [facility] [id number] [facility] 14:38:09 [facility] 2021-08-30 Outpatient Gali, [facility] [id number] [facility] 10:59:19 Jonathan [id number] [facility] 2021-12-18 2021-12-18 Outpatient FAITH MARCH [id number] Faith 09:30:00 09:30:00 AHMED Seybol d 2021-11-10 2021-11-10 Outpatient MAYFAITH [id number] Faith 00:00:00 00:00:00 FREDEIRC Seybol d 2021-11-09 2021-11-09 Outpatient FAITH MONTENEGRO [id number] Faith 00:00:00 00:00:00 ZEN Seybol d 2021-11-06 2021-11-06 Outpatient LAB90 FAITH RODRIGUEZ [id number] Faith 14:05:00 14:05:00 Seybol d 2021-11-06 2021-11-06 Outpatient LAB90 FAITH RODRIGUEZ [id number] Faith 09:30:00 09:30:00 Seybol d 2021-11-06 2021-11-06 Office Parmindergeno Kvng [id number] Faith 08:30:00 09:00:00 Visit Frederic Alatorre [id number] Se mika [id number] 2021-11-06 2021-11-06 Outpatient ANCA FAITH RODRIGUEZ [id number] Faith 00:00:00 00:00:00 NISHI guy 2021-11-03 2021-11-03 Outpatient SYED FAITH RODRIGUEZ [id number] Faith 00:00:00 00:00:00 CHING franco 2021-09-11 2021-09-11 ambulatory [facility] [id number] [facility] 2019-11-24 2019-11-24 [facility] [id number] [facility] 09:38:00 09:38:00 [facility] 2019-11-20 2019-11-20 [facility] [id number] 10:15:00 10:15:00 [facility] 2019-09-22 2019-09-22 [facility] [id number] 09:35:00 09:35:00 [facility] 2019-09-15 2019-09-15 [facility] [id number] 13:04:00 13:04:00 [facility] 2019-08-13 2019-08-13 [facility] [id number] 10:00:00 10:00:00 [facility] Results This patient has no known results.
[2021-12-04] MEDS ORDERED: HYDROCODONE/APAP 5/325 MG TAB ONE (08:28)
--- NOTE | 2021-12-04 09:07 | RAD REPORT ---
EXAM DESCRIPTION: USExtremity Venous Uni Ltd12/04/2021 8:45 am CLINICAL HISTORY: left leg pain COMPARISON: 2018 FINDINGS: Left common femoral, superficial femoral, popliteal and posterior tibial veins are compre ssible and demonstrate augmentation. Doppler demonstrates good flow. Grayscale, color and spectral analysis performed on all vessels IMPRESSION: No evidence of deep venous thrombosis involving the left lower extremity.
--- NOTE | 2021-12-04 09:16 | EDPHYS ---
Physician Documentation [facility] Name: Luba Ng Age: 56 yrs Sex: Female : 1965 Arrival Date: 12/04/2021 Time: 08:03 Bed 19 Private MD: Jayy [facility] ED Physician Tevin Morales HPI: 12/05 08:14 This 56 yrs old Female presents to ER via Wheelchair with complaints of Leg pm1 Pain- With Swelling. 08:14 The patient presents with pain, that is acute, swelling. The complaints affect the Left pm1 lower leg. Context: The problem was sustained at an unknown site, resulted from an unknown cause, Uses a powered wheelchair due to polio history. Onset: The symptoms/episode began/occurred 3 day(s) ago. Modifying factors: The symptoms are alleviated by nothing. the symptoms are aggravated by nothing. Associated signs and symptoms: Pertinent negatives calf tenderness, fever, numbness, tingling. Treatment prior to arrival includes: no previous treatment. Severity of symptoms: in the emergency department the symptoms are unchanged. The patient has experienced similar episodes in the past, a few times. The patient has not recently seen a physician, the patient's primary care provider is Dr. Talbert. Historical: - Allergies: 12/04 08:22 No Known Allergies; vg1 - Home Meds: 08:22 Lyrica Oral [Active]; Tramadol Oral [Active]; Buspirone Oral [Active]; Omeprazole Oral vg1 [Active]; eszopiclone oral [Active]; pregabalin Oral [Active]; solifenacin oral [Active]; Fluoxetine Oral [Active]; - PMHx: 08:22 Herniated disc; Polio; Anxiety; Depressive disorder; vg1 - Immunization history:: Client reports receiving the 2nd dose of the Covid vaccine. - Social history:: Smoking status: Patient denies any tobacco usage or history of. ROS: 12/05 08:14 Constitutional: Negative for fever, chills, and weight loss, Cardiovascular: Negative pm1 for chest pain, palpitations, and edema, Respiratory: Negative for shortness of breath, cough, wheezing, and pleuritic chest pain. Neuro: Negative for headache, weakness, numbness, tingling, and seizure. MS/extremity: Positive for pain, swelling, of the Left lower leg. Skin: Positive for of the Left lower leg, Redness and swelling. All other systems are negative. Exam: 08:14 Constitutional: This is a well developed, well nourished patient who is awake, alert, pm1 and in no acute distress. Head/Face: Normocephalic, atraumatic. 08:14 Cardiovascular: Exam negative for acute changes, Rate: normal, Rhythm: regular, Pulses: no pulse deficits are appreciated. 08:14 Respiratory: Exam negative for acute changes, respiratory distress, shortness of breath. 08:14 Skin: Appearance: normal except for affected area, Reddened area to left lower leg, blanching, no warmth in comparison to right lower leg. 08:14 Neuro: Exam negative for acute changes, Orientation: is normal, Mentation: is normal, Motor: is normal, moves all fours. Vital Signs: 12/04 08:20 BP 117 / 97; Pulse 70; Resp 16; Temp 97.7; Pulse Ox 100% ; Weight 86.18 kg; Height 4 vg1 ft. 11 in. (149.86 cm); Pain 5/10; 09:19 BP 117 / 97; Pulse 70; Resp 17; ll1 08:20 Body Mass Index 38.37 (86.18 kg, 149.86 cm) vg1 MDM: 08:14 Patient medically screened. pm1 08:57 ED course: Negative DVT report from /S [facility]. pm1 09:14 Data reviewed: vital signs. Data interpreted: Pulse oximetry: on room air is 100 %. pm1 Interpretation: normal. Counseling: I had a detailed discussion with the patient and/or guardian regarding: the historical points, exam findings, and any diagnostic results supporting the discharge/admit diagnosis, radiology results, the need for outpatient follow up, to return to the emergency department if symptoms worsen or persist or if there are any questions or concerns that arise at home. 09:19 ED course: [place] reviewed. pm1 02 08:21 Order name: Extremity Venous Uni Ltd ; Complete Time: 11:44 pm1 Administered Medications: 08:24 Drug: Laurel (HYDROcodone-acetaminophen) 5 mg-325 mg 1 tabs {Note: rass 0.} Route: PO; ll1 09:20 Follow up: Response: No adverse reaction; Pain is decreased; RASS: Alert and Calm (0) ll1 Disposition: 13:46 Co-signature as Attending Physician, Tevin Morales MD. rn Disposition Summary: 12/04/21 09:15 Discharge Ordered Location: Home pm1 Problem: new pm1 Symptoms: have improved pm1 Condition: Stable pm1 Diagnosis - Cellulitis of left lower limb pm1 Followup: pm1 - With: Emergency Department - When: As needed - Reason: Worsening of condition Followup: pm1 - With: Private Physician - When: 2 - 3 days - Reason: Recheck today's complaints, Continuance of care, Re-evaluation by your physician Discharge Instructions: - Discharge Summary Sheet pm1 - Cellulitis, Adult pm1 Forms: - Medication Reconciliation Form pm1 - Thank You Letter pm1 - Antibiotic Education pm1 - Prescription Opioid Use pm1 Prescriptions: - Bactrim DS 800-160 mg Oral Tablet - take 1 tablet by ORAL route every 12 hours for 10 days; 20 tablet; Refills: 0, pm1 Product Selection Permitted - Tylenol-Codeine #3 300 mg-30 mg Oral - take 2 tablet by ORAL route every 6 hours As needed; 20 tablet; Refills: 0, pm1 Product Selection Permitted Signatures: Dispatcher [employer] EDMS Tevin Morales MD MD rn Marinas, Patrick, NP BIOLOGY MANAGER pm1 Chastity Jara RN RN vg1 Darwin Horvath RN RN ll1
--- NOTE | 2021-12-04 09:16 | ER ---
Nurse's Notes [facility] Name: Luba Ng Age: 56 yrs Sex: Female : 1965 Arrival Date: 12/04/2021 Time: 08:03 Bed 19 Private MD: Chaz Hope Diagnosis: Cellulitis of left lower limb Presentation: 12/04 08:20 Chief complaint: Patient states: Noticed redness and swelling to Left lower extremity vg1 on Saturday12/01/21. Denies chest pain or SOB. Coronavirus screen: Vaccine status: Patient reports receiving the 2nd dose of the covid vaccine. Client denies travel out of the [place] in the last 14 days. Ebola Screen: Patient denies exposure to infectious person. Patient denies travel to an Ebola-affected area in the 21 days before illness onset. Initial Sepsis Screen: Does the patient meet any 2 criteria? No. Patient's initial sepsis screen is negative. Does the patient have a suspected source of infection? No. Patient's initial sepsis screen is negative. Risk Assessment: Do you want to hurt yourself or someone else? Patient reports no desire to harm self or others. Onset of symptoms was December 01, 2021. 08:20 Method Of Arrival: Wheelchair vg1 08:20 Acuity: RUBI 3 vg1 Triage Assessment: 08: General: Appears in no apparent distress. comfortable, Behavior is calm, cooperative. vg1 Pain: Complains of pain in left lateral ankle, left Achilles, left medial ankle and anterior aspect of left ankle. Historical: - Allergies: 08: No Known Allergies; vg1 - Home Meds: 08: Lyrica Oral [Active]; Tramadol Oral [Active]; Buspirone Oral [Active]; Omeprazole Oral vg1 [Active]; eszopiclone oral [Active]; pregabalin Oral [Active]; solifenacin oral [Active]; Fluoxetine Oral [Active]; - PMHx: 08:22 Herniated disc; Polio; Anxiety; Depressive disorder; vg1 - Immunization history:: Client reports receiving the 2nd dose of the Covid vaccine. - Social history:: Smoking status: Patient denies any tobacco usage or history of. Screenin:20 Abuse screen: Denies threats or abuse. Nutritional screening: No deficits noted. ll1 Tuberculosis screening: No symptoms or risk factors identified. Fall Risk No fall in past 12 months (0 pts). Secondary diagnosis (15 points) impaired mobility, Gait- Impaired (20 pts.). Total Hernández Fall Scale indicates High Risk Score (45 or more points). Fall prevention measures have been instituted. Side Rails Up X 2 Placed Close to Nursing Station Frequent Obs/Assessments Occuring Family Present and informed to notify staff if the need to leave the bedside As available patient and family educated on Fall Prevention Program and Strategies. Assessment: 09:20 Reassessment: No changes from previously documented assessment. Patient and/or family ll1 updated on plan of care and expected duration. Pain level reassessed. Patient is alert, oriented x 3, equal unlabored respirations, skin warm/dry/pink. Vital Signs: 08:20 BP 117 / 97; Pulse 70; Resp 16; Temp 97.7; Pulse Ox 100% ; Weight 86.18 kg; Height 4 vg1 ft. 11 in. (149.86 cm); Pain 5/10; 09:19 BP 117 / 97; Pulse 70; Resp 17; ll1 08:20 Body Mass Index 38.37 (86.18 kg, 149.86 cm) vg1 ED Course: 08:03 Patient arrived in ED. ds1 08:04 Chaz Hope DO is Private Physician. ds1 08:06 Kenton Stock NP is PHCP. pm1 08:06 Tevin Morales MD is Attending Physician. pm1 08:12 Darwin Horvath, LION is Primary Nurse. ll1 08:12 Arm band placed on Patient placed in an exam room, on a stretcher. ll1 08:22 Triage completed. vg1 08:45 Extremity Venous Uni Ltd US In Process Unspecified. EDMS 09:21 Patient has correct armband on for positive identification. Bed in low position. Call ll1 light in reach. Side rails up X 1. Cardiac monitoring not applicable on this patient. 09:21 No provider procedures requiring assistance completed. Patient did not have IV access ll1 during this emergency room visit. Administered Medications: 08:24 Drug: [place] (HYDROcodone-acetaminophen) 5 mg-325 mg 1 tabs {Note: rass 0.} Route: PO; ll1 09:20 Follow up: Response: No adverse reaction; Pain is decreased; RASS: Alert and Calm (0) ll1 Outcome: 09:15 Discharge ordered by . pm1 09:21 Discharged to home ambulatory. ll1 :21 Condition: stable :21 Discharge instructions given to patient, Instructed on discharge instructions, follow up and referral plans. no drinking with medication, no driving heavy equipment, medication usage, Demonstrated understanding of instructions, follow-up care, medications, Prescriptions given X 2. :21 Patient left the ED. 1 Signatures: Dispatcher [employer] [facility] Lily Mcghee ds1 Kenton Stock, STEWART R D ENGINEER pm1 Chastity Jara, RN RN vg1 Darwin Horvath, RN RN ll1
[2021-12-04 09:26] VITALS: BP 117/97; TEMP 97.7; O2SAT 100
== END 2021-12-04 09:21 | disposition home or self-care (01) ==
LOC: ER 08:01
DX: L03.116 Cellulitis of left lower limb (principal); F41.9 Anxiety disorder, unspecified; F32.A Depression, unspecified
CPT/HCPCS: 93971; 99283

== ENCOUNTER 2023-07-05 15:11 | Emergency (ER) | payer OTHER ==
--- OUTSIDE RECORDS SUMMARY | 2023-07-05 15:16 | XMS REPORT | Continuity of Care Document ---
:1965 Author Organization [facility] Address [address] [facility] [address] [place] [address] Care Team Providers Name Role Phone PCP, PATIENT DOES NOT HAVE A Primary Care Physician UnavailSelam Leon Attending Clinician Unavailable Frederic Olvera Attending Clinician Unavailable Chaz Hope Attending Clinician Unavailable Jonathan Talbert Attending Clinician Unavailable AYE PRADO Attending Clinician Unavailable BENITO SHERIDAN Attending Clinician Unavailable Doctor Unassigned, Loda Attending Clinician Unavailable AURELIA CUEVAS Attending Clinician Unavailable Deshazo_T Attending Clinician Unavailable NISHI MARCH Attending Clinician Unavailable FREDERIC OLVERA Attending Clinician Unavailable ZEN MONTENEGRO Attending Clinician Unavailable LAB90 Attending Clinician Unavailable CHING LYNCH Attending Clinician Unavailable PRAFUL GRIMM Attending Clinician Unavailable Alfredo Mullen Attending Clinician QUINTON HUBBARD Attending Clinician Unavailable Chris Venegas Jr Attending Clinician NICKI SMALL Attending Clinician Unavailable Physician, Non Associated Attending Clinician Unavailable KEHINDE MARIA Attending Clinician Unavailable Cele_T Admitting Clinician Unavailable Payers Payer Name Policy Type Policy Number Effective Date Expiration Date Shirley james MEDICARE PART A [id number] 1998 2023 \T\ B 00:00:00 00:00:00 [employer] [id number] 2022 (MEDICARE 00:00:00 REPLACEMENT HMO) AARP MCR 1 [id number] 2021 Common ADVANTAGE WELLMED 00:00:00 Spirit [facility] [employer] [place] HMO 7 [id number] 2021 00:00:00 Problems Condition Condition Condition Status Onset Resolution Last Treating Co mments Source Name Details Category Date Date Treatment Clinician Date Current Current Disease Active Faith mild mild 4-04 Seybold episode of episode of 00:00: major major 00 depressive depressive disorder disorder Functional Functional Disease Active K elsey urinary urinary 4-04 Seybold incontinen incontinen 00:00: ce ce 00 Gastroesop Gastroesop Disease Active K elsey hageal hageal 4-04 Seybold reflux reflux 00:00: disease disease 00 without without esophagiti esophagiti s s 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 History of Gastric sleeve Murmur Murmur Disease Active Faith 4-04 Seybold 00:00: 00 History of History of Disease Active K elsey recurrent recurrent 4-04 Seyb old UTI UTI 00:00: (urinary (urinary 00 tract tract infection) infection) M75.122 - M75.122 - Diagnosis Active 2019-082020-08-01 Memoria COMPLETE COMPLETE 08-07 11:16:00 l ROTATR-CUF ROTATR-CUF 00:01: He rmann F F 00 TEAR/RUPT TEAR/RUPT Active 06/07/2020 MH OPID [facility] UNK UNK Diagnosis Active 2018-08-19 Mem oria Active 1-14 12:54:00 l 08/18/2018 00:00: Mark Anthony acuna [facility] 00 [facility] CLOSED CLOSED Diagnosis Active 2018-09-02 Me moria REDUCTION REDUCTION -14 08:25:00 l PERCUTANEO PERCUTANEO 00:00: Phil caicedo [facility] 00 PINNINHG PINNINHG Active 08/18/2018 [facility] Essential Essential Disease Active 2006-08 Uni vers hypertensi hypertensi 08-12 it y of on[place] benign [place] [facility] Curvature Curvature Disease Active 2006-08 Overview: Univers of spine of spine 08-12 Formattin ity of associated associated 00:00: g of this [place] with other with other 00 note Me dical condition condition might be Br anch different from the original. 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 Unspecifie Unspecifie Disease Active 2006-08 U nivers d disorder d disorder 08-12 it y of of of 00:00: [place] menstruati menstruati 00 Me dical on and on and Branch other other abnormal abnormal bleeding bleeding from from female female genital genital tract tract POWER POWER Diagnosis Active 2000-2017-05-14 Mem oria WHEELCHAIR WHEELCHAIR 08-05 07:20:00 l EVAL EVAL 00:00: Ricci Active 00 08/05/2000 [facility] Personal Personal Problem 2019-03-10 Memoria history of history of 13:53:20 l poliomyeli poliomyeli He sascha tis tis 03/10/2019 [facility] Other long Other Problem 2019-03-10 M emoria term long-term 13:53:20 l (current) (current) Herm jaspreet drug drug therapy therapy 03/10/2019 [facility] PARAPLEGIA PARAPLEGI Diagnosis Active 2017-05-14 Memoria , A, 07:20:00 l UNSPECIFIE UNSPECIFIE He rmjaspreet D D Active [facility] Morbid Morbid Problem 2019-03-10 Dariusz flaco (severe) (severe) 13:53:20 l obesity obesity Ricci due to due to excess excess calories calories 03/10/2019 [facility] Fall from Fall from Problem 2019-03-10 Memoria non-moving non-moving 13:53:20 l wheelchair wheelchair He sascha , initial , initial encounter encounter 03/10/2019 [facility] Sleep Sleep Problem 2019-03-10 Memor ia apnea, apnea, 13:53:20 l unspecifie unspecifie He rmann d d 03/10/2019 David [id number] BRIGHT Problem Common (obstructi Spirit ve sleep - CHI apnea) [facility] [id number] History of Problem C ommon sleeve Spirit gastrectom - [facility]I y [facility] [id number] Body mass Problem Com mon index Spirit [BMI] - CHI 38.0-38.9, [facility] [id number] Gastroesop Problem Co mmon hageal Spirit reflux [facility], [facility] s present [id number] Wheelchair Problem Co mmon bound Spirit - [facility] [id number] History of Problem Co mmon post-polio Spirit syndrome - [facility] [id number] Anemia, Problem Commo n unspecifie Spirit d type - [facility] [id number] Overflow Problem Comm on incontinen Spirit ce - [facility] [id number] Moderate Problem Comm on episode of Spirit recurrent - [facility]I major [facility] [id number] Primary Problem Common insomnia Spirit - [facility] [id number] Other Problem Common obesity Spirit due to - [facility]I excess [facility] [id number] DAVID Problem Common (generaliz Spirit ed anxiety - CHI disorder) [facility] [id number] Chronic Problem Commo n pain Spirit syndrome - [facility] History of Past Illness Condition Condition Condition Status Onset Resolution Last Treating Co mments Source Name Details Category Date Date Treatment Clinician Date Displaced Displaced Problem 2018-2019-03-10 2019-03-10 Memoria fracture fracture 08-27 13:53:20 13:53:20 l of of 04:54: Ricci proximal proximal 06 phalanx of phalanx of left left little little finger, finger, initial initial encounter encounter for closed for closed fracture fracture 08/27/2018 9 David Allergies, Adverse Reactions, Alerts Allergy Allergy Status Severity Reaction(s) Onset Inactive Treating Comm ents Source Name Type Date Date Clinician NO KNOWN Drug Active Univers ALLERGIE Class ity of S [facility] No Known No Known Active Memori a Medicati Medicati l on on Ricci Allergie Allergie s s Social History Social Habit Start Date Stop Date Quantity Comments Source History SDOH Faith Correaybo ld Alcohol Binge History SDOH Faith Correaybo ld Alcohol Frequency History SDOH Faith Correaybo ld Alcohol Std Drinks History of Common Spirit - Tobacco Use [facility] Alcohol Comment 2021-11-06 2021-11-06 rarely Faith Correa ybold 00:00:00 00:00:00 Education 2021-11-06 2021-11-06 12 Faith Seybold 00:00:00 00:00:00 Tobacco use and 2021-11-06 2021-11-06 Smokeless tobacco Ke talha Seybold exposure 00:00:00 00:00:00 non-user Alcohol intake 2021-11-06 2021-11-06 Current drinker [place] Chacon 00:00:00 00:00:00 of alcohol (finding) Sex [birth year] [facility] 00:00:00 00:00:00 [facility] Smoking Status Start Date Stop Date Source Unknown if ever smoked Common Sp gal - [facility] Social History [facility] Medications Ordered Filled Start Stop Current Ordering Indication Dosage Frequency Signature Comments Components Source Medication Medication Date Date Medication? Clinician (SIG) Name Name Eszopiclone Eszopiclone 2021-08 No QD Eszopiclon 3 MG 3 MG 2-29 e 3 MG 00:00: 00 Eszopiclone Eszopiclone 2021-08 No QD Eszopiclon 3 MG 3 MG 2-29 e 3 MG 00:00: 00 Eszopiclone Eszopiclone 2021-08 No QD Eszopiclon 3 MG 3 MG 2-29 e 3 MG 00:00: 00 Eszopiclone Eszopiclone No Eszopiclon 3 MG 3 MG 8-29 e 3 MG 00:00: 00 Eszopiclone Eszopiclone No Eszopiclon 3 MG 3 MG 8-29 e 3 MG 00:00: 00 Eszopiclone Eszopiclone No Eszopiclon 3 MG 3 MG 8-29 e 3 MG 00:00: 00 Eszopiclone Eszopiclone No Eszopiclon 3 MG 3 MG 8-29 e 3 MG 00:00: 00 Eszopiclone Eszopiclone 0 No Eszopiclon 3 MG 3 MG 8-29 e 3 MG 00:00: 00 Eszopiclone Eszopiclone 0 No 1{table QD Eszopiclon 3 MG 3 MG 5-25 t_immed e 3 MG 00:00: iately_ 00 before_ bedtime } Eszopiclone Eszopiclone No 1{table QD Eszopiclon 3 MG 3 MG 5-25 t_immed e 3 MG 00:00: iately_ 00 before_ bedtime } Eszopiclone Eszopiclone No 1{table QD Eszopiclon 3 MG 3 MG 5-25 t_immed e 3 MG 00:00: iately_ 00 before_ bedtime } Eszopiclone Eszopiclone 0 No 1{table QD Eszopiclon 3 MG 3 MG 5-25 t_immed e 3 MG 00:00: iately_ 00 before_ bedtime } Azelastine 2021- No INSTILL 1 K elsey HCl 0.05 % 11-06 DROP INTO Sey bold ophthalmic 08:57: 00:00 AFFECTED Solution 14 :00 EYE TWICE A DAY Ibuprofen No 400mg Q.25D Take 400 K elsey [...] BY MOUTH THREE TIMES A DAY Norethin-Et 2021-0 2021- No Take by Ke verocricket h 4-11 06- mouth Seybold Estradiol-F 08:30: 00:00 e 0.4-35 15 :00 MG-MCG oral Chewable Tablet Lifitegrast 0 2021- No 1[drp] Place 1 Faith (Xiidra) 5 4-11 06-04 drop into Sey bold % 08:30: 00:00 both eyes ophthalmic 03 :00 2 times Solution daily busPIRone 0 Yes 1{tbl} Take 1 Matilda ey HCl 10 MG 4-04 tablet by Seybo ld oral Tablet 08:29: mouth 3 38 times daily Fluoxetine 2021- No Faith HCl 40 MG 4-11 06- Seybold oral 08:29: 00:00 Capsule 38 :00 BUSPIRONE 2021-0 2021- No Faith HCL OR 4-04 - Seybold 08:28: 00:00 56 :00 Acetaminoph 0 Yes 1000mg Q4H Take 1,000 Faith en 4-04 mg by Seybold (TYLENOL) 08:28: mouth 500 MG oral 52 every 4 Tablet hours as needed for pain Pregabalin Yes [id number] 75mg Take 1 Faith (Lyrica) 75 4-04 capsule Seybo ld MG oral 00:00: (75 mg Capsule 00 total) by mouth 3 times daily Tramadol Yes [id number] 50mg Q.25D Take 1 K elsey HCl [...] in the evening. FOR 90 DAYS. Eszopiclone 0 2021- No TAKE 1 Rebel sey 3 MG oral 3-06 04-04 TABLET BY Seyb old Tablet 00:00: 00:00 MOUTH 00 :00 EVERY DAY IMMEDIATEL Y BEFORE BEDTIME Omeprazole Yes TAKE 1 Kelse y 40 MG oral 3-02 CAPSULE BY Sey bold Delayed 00:00: MOUTH Release 00 EVERY DAY Capsule IN THE MORNING ORAL 90 DAYS Pantoprazol 2021- No 40mg Take 40 mg Faith e Sodium 40 3-02 04-04 by mouth Sey bold MG oral 00:00: 00:00 daily Tablet 00 :00 Delayed Response Cyanocobala Yes INJECT Matilda ey min (VIT 2-07 INTO THE Seybold B12) 1000 00:00: MUSCLE 1 MCG/ML 00 MILLILITER injection EVERY 30 Solution DAYS Eszopiclone Eszopiclone No 1{table QD Eszopiclon 3 MG 3 MG 2-07 t_immed e 3 MG 00:00: iately_ 00 before_ bedtime } Cephalexin 2021- No 500mg Take 500 K elsey 500 MG oral 1-30 04-04 mg by Seybol d Capsule 00:00: 00:00 mouth 00 :00 every 12 hours Phentermine 2021- No 1{tbl} Take 1 K elsey HCl 37.5 MG 30 04-04 tablet by Se ybold oral Tablet 00:00: 00:00 mouth 00 :00 daily Meloxicam Meloxicam 0 2020- No Alesk 1 tablet Common 08-13- Ferrell Spirit 00:00: 00:00 - [facility] 00 :00 [facility] Fentanyl No Notes: Memoria 08-21 (Same as: l 14:33: Sublimaze) Preservati ve free. Hydromorpho No Notes: Dariusz flaco ne -17 Same as: l 14:33: Dilaudid Oxycodone No Notes: Memori a 08-21 (Same as: l 14:33: Roxicodone ) Diphenhydra No Notes: Dariusz flaco mine 17 (Same as: l 14:33: Benadryl) Albuterol No Notes: SEE Me moria 0.83 MG/ML 1-17 RT l Inhalant 14:33: DOCUMENTAT Her fam [...] Nausea & Vomiting, Start date: 08/21/18 8:33:00 FACILITIES MAINTENANCE ASSISTANT Fentanyl No Notes: Memoria 08-21 (Same as: l 14:33: Sublimaze) Preservat damien free. Hydromorpho No Notes: Dariusz flaco ne 08-21 Same as: l 14:33: Dilaudid Oxycodone No Notes: Memori a 08-21 (Same as: l 14:33: Roxicodone ) Diphenhydra No Notes: Dariusz flaco mine 08-21 (Same as: l 14:33: Benadryl) Albuterol No Notes: SEE Me moria 0.83 MG/ML -17 RT l Inhalant 14:33: DOCUMENTAT Her fam Solution 00 ION (Same as: Proventil) Naloxone No Notes: Memoria 1-17 Same as l 14:33: Narcan Flumazenil No Notes: Memor ia 08-21 (Same as: l 14:33: Romazicon) Acetaminoph No Notes: Max Memoria en 08-21 acetaminop l 14:33: hen 4000 Ricci 00 mg/day (4 gm/day). (Same as: Tylenol Extra Strength) Hydralazine No Notes: Dariusz flaco 17 (Same as: l 14:33: Apresoline ) Push over 5 minutes Labetalol No Notes: Memori a 08-21 (Same as: l 14:33: Normodyne, Ricci 00 Trandate) Push over 2 minutes Give bolus over 2-3 minutes. Ketorolac No 4 days Memor ia 08-21 l 14:33: MEDICATION WASTE Product Size: 30 mg Product Wasted: ___ mg Promethazin No 6.25 mg, Me moria e 08-21 Route: l 14:33: IVPB, ONCE, Dosing Weight 85.909, kg, PRN Nausea & Vomiting, Start date: 08/21/18 8:33:00 FACILITIES MAINTENANCE ASSISTANT Meperidine No Notes: Memor ia -17 (Same As: l 14:33: Demerol) Ondansetron No Notes: Dariusz flaco -17 (Same as: l 14:33: Zofran) MEDICATION WASTE Product Size: 4 mg Product Wasted: ___ mg Meperidine No Notes: Memor ia -17 (Same As: l 14:33: Demerol) Ondansetron No Notes: Dariusz flaco -17 (Same as: l 14:33: Zofran) MEDICATION WASTE Product Size: 4 mg Product Wasted: ___ mg Fentanyl No Notes: Memoria 17 (Same as: l 14:33: Sublimaze) Preservati ve free. Hydromorpho No Notes: Dariusz flaco ne 08-21 Same as: l 14:33: Dilaudid Oxycodone No Notes: Memori a -17 (Same as: l 14:33: Roxicodone ) Diphenhydra [...] Nausea & Vomiting, Start date: 08/21/18 8:33:00 FACILITIES MAINTENANCE ASSISTANT Meperidine No Notes: Memor ia 08-21 (Same As: l 14:33: Demerol) Ondansetron No Notes: Dariusz flaco 17 (Same as: l 14:33: Zofran) MEDICATION WASTE Product Size: 4 mg Product Wasted: ___ mg fentaNYL No Route: IV, Mem oria (ANES) 1-17 Drug form: l 14:16: INJ, ONCE, Stop date: 08/21/18 8:16:00 FACILITIES MAINTENANCE ASSISTANT hydrALAZINE No Route: IV, Memoria (ANES) 1-17 Drug form: l 14:16: INJ, ONCE, Stop date: 08/21/18 8:16:00 FACILITIES MAINTENANCE ASSISTANT dexamethaso 2018-0 No Route: IV, Memoria ne (ANES) 1 Drug form: l 14:16: INJ, ONCE, Stop date: 08/21/18 8:16:00 FACILITIES MAINTENANCE ASSISTANT ketOROLAC 0 No IV, ONCE Dariusz flaco (ANES) -17 l 14:16: fentaNYL No Route: IV, Mem oria (ANES) 1-17 Drug form: l 14:16: INJ, ONCE, Stop date: 08/21/18 8:16:00 FACILITIES MAINTENANCE ASSISTANT hydrALAZINE No Route: IV, Memoria (ANES) 1-17 Drug form: l 14:16: INJ, ONCE, Stop date: 08/21/18 8:16:00 FACILITIES MAINTENANCE ASSISTANT dexamethaso 0 No Route: IV, Memoria ne (ANES) 1-17 Drug form: l 14:16: INJ, ONCE, Stop date: 08/21/18 8:16:00 FACILITIES MAINTENANCE ASSISTANT ketOROLAC 0 No IV, ONCE Dariusz flaco (ANES) -17 l 14:16: fentaNYL No Route: IV, Mem oria (ANES) 1-17 Drug form: l 14:16: INJ, ONCE, Stop date: 08/21/18 8:16:00 FACILITIES MAINTENANCE ASSISTANT hydrALAZINE 0 No Route: IV, Memoria (ANES) 1-17 Drug form: l 14:16: INJ, ONCE, Stop date: 08/21/18 8:16:00 FACILITIES MAINTENANCE ASSISTANT dexamethaso 0 No Route: IV, Memoria ne (ANES) 1-17 Drug form: l 14:16: INJ, ONCE, Stop date: 08/21/18 8:16:00 FACILITIES MAINTENANCE ASSISTANT ketOROLAC 2019-0 No IV, ONCE Dariusz flaco (ANES) 1-17 l 14:16: [facility] propofol 2019-0 No Route: IV, Mem oria (ANES) 1-17 Drug form: l 14:14: INJ, ONCE, Stop date: 08/21/18 8:14:00 FACILITIES MAINTENANCE ASSISTANT ondansetron 2019-0 No Route: IV, Memoria (ANES) 1-17 Drug form: l 14:14: INJ, ONCE, [facility] 00 Stop date: 08/21/18 8:14:00 FACILITIES MAINTENANCE ASSISTANT midazolam 2019-0 No Route: IV, Me moria (ANES) 1-17 Drug form: l 14:14: SOLN, [facility] ONCE, Stop date: 08/21/18 8:14:00 FACILITIES MAINTENANCE ASSISTANT propofol 2019-0 No Route: IV, Mem oria (ANES) 1-17 Drug form: l 14:14: INJ, ONCE, Stop date: 08/21/18 8:14:00 FACILITIES MAINTENANCE ASSISTANT ondansetron 2019-0 No Route: IV, Memoria (ANES) 1-17 Drug form: l 14:14: INJ, ONCE, Stop date: 08/21/18 8:14:00 FACILITIES MAINTENANCE ASSISTANT midazolam 2019-0 No Route: IV, Me moria (ANES) 1-17 Drug form: l 14:14: SOLN, [facility] ONCE, Stop date: 08/21/18 8:14:00 FACILITIES MAINTENANCE ASSISTANT propofol 2019-0 No Route: IV, Mem oria (ANES) 1-17 Drug form: l 14:14: INJ, ONCE, Ricci 00 Stop date: 08/21/18 8:14:00 FACILITIES MAINTENANCE ASSISTANT ondansetron 2019-0 No Route: IV, Memoria (ANES) 1-17 Drug form: l 14:14: INJ, ONCE, Stop date: 08/21/18 8:14:00 FACILITIES MAINTENANCE ASSISTANT midazolam 2019-0 No Route: IV, Me moria (ANES) 1-17 Drug form: l 14:14: SOLN, Ricci ONCE, Stop date: 08/21/18 8:14:00 FACILITIES MAINTENANCE ASSISTANT lidocaine 2019-0 No Route: IV, Me moria (ANES) 1-17 Drug form: l 14:04: INJ, ONCE, Stop date: 08/21/18 8:04:00 FACILITIES MAINTENANCE ASSISTANT ceFAZolin 2019-0 No Route: IV, moria (ANES) 1-17 Drug form: l 14:04: INJ, ONCE, Stop date: 08/21/18 8:04:00 FACILITIES MAINTENANCE ASSISTANT lidocaine 2019-0 No Route: IV, moria (ANES) 1-17 Drug form: l 14:04: INJ, ONCE, Stop date: 08/21/18 8:04:00 FACILITIES MAINTENANCE ASSISTANT ceFAZolin 2019-0 No Route: IV, moria (ANES) 1-17 Drug form: l 14:04: INJ, ONCE, Stop date: 08/21/18 8:04:00 FACILITIES MAINTENANCE ASSISTANT lidocaine 2019-0 No Route: IV, moria (ANES) 1-17 Drug form: l 14:04: INJ, ONCE, Stop date: 08/21/18 8:04:00 FACILITIES MAINTENANCE ASSISTANT ceFAZolin 2019-0 No Route: IV, moria (ANES) 1-17 Drug form: l 14:04: INJ, ONCE, Stop date: 08/21/18 8:04:00 FACILITIES MAINTENANCE ASSISTANT Lactated 2019-0 No Route: IV, Mem oria Ringers 1-17 Total l Injection 13:32: Volume: Marissa nn IV (ANES) 00 1,000, 1000 mL Start date: 08/21/18 7:32:00 FACILITIES MAINTENANCE ASSISTANT, Stop date: 08/21/18 8:32:00 FACILITIES MAINTENANCE ASSISTANT Lactated 2019-0 No Route: IV, Mem oria Ringers 1-17 Total l Injection 13:32: Volume: Marissa nn IV (ANES) 00 1,000, 1000 mL Start date: 08/21/18 7:32:00 FACILITIES MAINTENANCE ASSISTANT, Stop date: 08/21/18 8:32:00 FACILITIES MAINTENANCE ASSISTANT Lactated 2019-0 No Route: IV, Mem oria Ringers 1-17 Total l Injection 13:32: Volume: Marissa nn IV (ANES) 00 1,000, 1000 mL Start date: 08/21/18 7:32:00 FACILITIES MAINTENANCE ASSISTANT, Stop date: 08/21/18 8:32:00 FACILITIES MAINTENANCE ASSISTANT Sodium 2019-0 No 1,000 mL, Memori a Chloride 1-17 Rate: 25 l 0.9% IV 11:31: ml/hr, [facility] 1,000 mL 00 Infuse over: 40 hr, Route: IV, Dosing Weight 85.909 kg, Total Volume: 1,000, Start date: 08/21/18 5:31:00 FACILITIES MAINTENANCE ASSISTANT, Duration: 30 day, Stop date: 09/20/18 5:30:00 FACILITIES MAINTENANCE ASSISTANT, 1.93, m2 Calcium 2019-0 No 1,000 mL, Memor ia Chloride 1-17 Rate: 25 l 0.0014 11:31: ml/hr, Ricci MEQ/ML / 00 Infuse Potassium over: 40 Chloride hr, Route: 0.004 IV, Dosing MEQ/ML / Weight Sodium 85.909 kg, Chloride Total 0.103 Volume: MEQ/ML / 1,000, Sodium Start Lactate date: 0.028 08/21/18 MEQ/ML 5:31:00 Injectable FACILITIES MAINTENANCE ASSISTANT, Solution Duration: 30 day, Stop date: 09/20/18 5:30:00 FACILITIES MAINTENANCE ASSISTANT, 1.93, m2 Sodium 2019-0 No 1,000 mL, Memori a Chloride 1-17 Rate: 25 l 0.9% IV 11:31: ml/hr, Ricci 1,000 mL 00 Infuse over: 40 hr, Route: IV, Dosing Weight 85.909 kg, Total Volume: 1,000, Start date: 08/21/18 5:31:00 FACILITIES MAINTENANCE ASSISTANT, Duration: 30 day, Stop date: 09/20/18 5:30:00 FACILITIES MAINTENANCE ASSISTANT, 1.93, m2 Calcium 2019-0 No 1,000 mL, Memor ia Chloride 1-17 Rate: 25 l 0.0014 11:31: ml/hr, [facility] MEQ/ML / 00 Infuse Potassium over: 40 Chloride hr, Route: 0.004 IV, Dosing MEQ/ML / Weight Sodium 85.909 kg, Chloride Total 0.103 Volume: MEQ/ML / 1,000, Sodium Start Lactate date: 0.028 08/21/18 MEQ/ML 5:31:00 Injectable FACILITIES MAINTENANCE ASSISTANT, Solution Duration: 30 day, Stop date: 09/20/18 5:30:00 FACILITIES MAINTENANCE ASSISTANT, 1.93, m2 Sodium 2019-0 No 1,000 mL, Memori a Chloride 1-17 Rate: 25 l 0.9% IV 11:31: ml/hr, [facility] 1,000 mL 00 Infuse over: 40 hr, Route: IV, Dosing Weight 85.909 kg, Total Volume: 1,000, Start date: 08/21/18 5:31:00 FACILITIES MAINTENANCE ASSISTANT, Duration: 30 day, Stop date: 09/20/18 5:30:00 FACILITIES MAINTENANCE ASSISTANT, 1.93, m2 Calcium 2019-0 No 1,000 mL, Memor ia Chloride 1-17 Rate: 25 l 0.0014 11:31: ml/hr, [facility] MEQ/ML / 00 Infuse Potassium over: 40 Chloride hr, Route: 0.004 IV, Dosing MEQ/ML / Weight Sodium 85.909 kg, Chloride Total 0.103 Volume: MEQ/ML / 1,000, Sodium Start Lactate date: 0.028 08/21/18 MEQ/ML 5:31:00 Injectable FACILITIES MAINTENANCE ASSISTANT, Solution Duration: 30 day, Stop date: 09/20/18 5:30:00 FACILITIES MAINTENANCE ASSISTANT, 1.93, m2 Vitamin D3 2019-0 Yes 1,000 Memori a 1-17 IntlUnit, l 11:29: PO, Daily, [facility] 00 0 Refill(s) Vitamin B12 2019-0 Yes 1,000 Memor ia 1000 mcg/mL 1-17 microgram, l injectable 11:29: IM, [facility] solution 00 qMonth, 0 Refill(s) Vitamin D3 2019-0 Yes 1,000 Memori a 1-17 IntlUnit, l 11:29: PO, Daily, Ricci 00 0 Refill(s) Vitamin B12 2019-0 Yes 1,000 Memor ia 1000 mcg/mL 1-17 microgram, l injectable 11:29: IM, Ricci solution 00 qMonth, 0 Refill(s) Vitamin D3 2019-0 Yes 1,000 Memori a 1-17 IntlUnit, l 11:29: PO, Daily, [facility] 00 0 Refill(s) Vitamin B12 2019-0 Yes 1,000 Memor ia 1000 mcg/mL 1-17 microgram, l injectable 11:29: IM, Ricci solution 00 qMonth, 0 Refill(s) DICLOFENAC 2017-0 Yes Take by [facility] SODIUM ORAL 1-24 mouth. ity of 16:31: [address] DICLOFENAC 2017-0 Yes Take by Univ ers SODIUM ORAL 1-24 mouth. 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 2016-08 Yes None Univer s A IM 2-14 Entered ity of 11:05: [address] LISINOPRIL 2016-08 Yes None Univers ORAL 2-14 Entered ity of 11:05: [address] 2016-08 Yes None Univers 0.4MG-35MCG 2-14 Entered ity o f (21) & 75 11:05: [place] MG (7) ORAL [facility] 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 2016-08 Yes None Univer s A IM 2-14 Entered ity of 11:05: [address] gabapentin 2016-08 Yes TAKE ONE Uni vers 300 mg 1-20 CAPSULE BY ity of capsule 00:00: MOUTH 3 TIMES A Medical DAY Branch gabapentin 2016-08 Yes TAKE ONE Uni vers 300 mg 1-20 CAPSULE BY ity of capsule 00:00: MOUTH 3 [place] TIMES A Medical DAY Branch cyclobenzap 2016-08 Yes TAKE 1 Univ ers rine 10 mg 1-02 TABLET BY ity of tablet 00:00: MOUTH 3 TIMES A Medical DAY Branch NEEDED cyclobenzap 2016-08 Yes TAKE 1 Univ ers rine 10 mg 1-02 TABLET BY ity of tablet 00:00: MOUTH 3 [place] TIMES A Medical DAY Branch NEEDED Pantoprazol Pantoprazol Yes Aleks TAKE 1 Common e Sodium e Sodium Ferrell TABLET BY Sp gal MOUTH - [facility]I EVERY DAY [facility] Neomycin-Po Neomycin-Po Yes Aleks APPLY TO Common lymyxin-Dex lymyxin-Dex Ferrell INCISION Spirit ameth ameth AREA THREE - CHI TIMES A . [facility] Cyanocobala Cyanocobala Yes Aleks INJECT Common min min Ferrell INTO THE Spirit MUSCLE 1 - [facility] EVERY 30 [facility] DA[facility] Medical Center Meclizine Meclizine Yes Aleks TAKE 1 Common HCl HCl Ferrell TABLET BY Spirit MOUTH - [facility] THREE St TIMES A [facility] DAY Medical NEEDED Center Omeprazole Omeprazole Yes Aleks TAKE 1 Common Ferrell CAPSULE BY Spirit MOUTH - [facility] EVERY DAY St IN THE [facility] Ondansetron Ondansetron Yes Aleks TAKE 1 Common HCl HCl Ferrell TABLET BY Spirit MOUTH - [facility] EVERY [address] [facility] HOURS [facility] NEEDED Medical Center Clindamycin Clindamycin Yes Aleks not Common HCl HCl Ferrell defined Spirit - [facility] Sulfamethox Sulfamethox Yes Aleks not Common azole azole Ferrell defined [facility] Nitrofurant Nitrofurant Yes Aleks TAKE 1 Common oin Monohyd oin Monohyd Ferrell CAPSULE Spirit Macro Macro (100 MG) - [facility] BY MOUTH St EVERY 12 kes HOURS FOR Medical 3 DAYS Center WITH FOOD Tramadol Tramadol Yes Aleks (Schedule Common HCl HCl Ferrell IV Drug) Natanael TAKE 1 - [facility] TABLET BY [facility] MOUTH [facility] EVERY 8 Medical HOURS Center NEEDED Azelastine Azelastine Yes Aleks INSTILL 1 Common HCl HCl Ferrell DROP INTO Spirit AFFECTED - [facility] EYE TWICE St A DAY [facility] Erythromyci Erythromyci Yes Aleks APPLY 1 Common n n Ferrell CENTIMETER Spirit TO LOWER - [facility] EYELID OF St AFFECTED [facility] EYE 3 Medical TIMES A Center DAY UNTIL DIRECTED TO STOP Meloxicam Meloxicam Yes Aleks TAKE 1 Common Ferrell TABLET BY Spirit MOUTH - [facility] TWICE A [facility] DAY [facility] NEEDED Medical Center Xiidra Xiidra Yes Aleks INSTILL 1 Com mon Ferrell DROP INTO Spirit BOTH EYES - [facility] TWICE A [facility] DAY [facility] Metoclopram Metoclopram Yes Aleks 3 TABLETS Common garland HCl garland HCl Ferrell BY MOUTH. Spir it USE - [facility] DIRECTED St PER YOUR [facility] COLONOSCOP Medical Y PREP Center PACKET Hydrocodone Hydrocodone Yes Aleks (Schedule Common -Acetaminop -Acetaminop Ferrell II Drug) Natanael hen hen TAKE 1 - [facility] TABLET [facility] MOUTH [facility] EVERY DAY Medical Center Terbinafine Terbinafine Yes Aleks TAKE 1 Common HCl HCl Ferrell TABLET BY Spirit MOUTH - [facility] EVERY DAY [facility] Pregabalin Pregabalin Yes Aleks (Schedule Common Ferrell V Drug) Spirit TAKE 1 - [facility] A Center DAY Pregabalin Pregabalin No Pregabalin 75 MG 75 MG 75 MG busPIRone busPIRone No 1{table TID busPIRone HCl 10 MG HCl 10 MG t} HCl 10 MG Clindamycin Clindamycin No Clindamyci HCl HCl n HCl Azelastine Azelastine No Azelastine HCl 0.05 % HCl 0.05 % HCl 0.05 % Phentermine Phentermine No 1{table QD Phentermin HCl 37.5 MG HCl 37.5 MG t} e HCl 37.5 MG Xiidra 5 % Xiidra 5 % No Xiidra 5 % FLUoxetine FLUoxetine No 1{capsu QD FLUoxetine HCl 40 MG HCl 40 MG le} HCl 40 MG Omeprazole Omeprazole No Omeprazole 40 MG 40 MG 40 MG Sulfamethox Sulfamethox No Sulfametho azole azole xazole traMADol traMADol No traMADol HCl 50 MG HCl 50 MG HCl 50 MG FLUoxetine FLUoxetine No FLUoxetine HCl 40 MG HCl 40 MG HCl 40 MG Azelastine Azelastine No Azelastine HCl 0.05 % HCl 0.05 % HCl 0.05 % Omeprazole Omeprazole No Omeprazole 40 MG 40 MG 40 MG traMADol traMADol No traMADol HCl 50 MG HCl 50 MG HCl 50 MG Clindamycin Clindamycin No Clindamyci HCl HCl n HCl busPIRone busPIRone No 1{table TID busPIRone HCl 10 MG HCl 10 MG t} HCl 10 MG Xiidra 5 % Xiidra 5 % No Xiidra 5 % Sulfamethox Sulfamethox No Sulfametho azole azole xazole Pregabalin Pregabalin No Pregabalin 75 MG 75 MG 75 MG Phentermine Phentermine No 1{table QD Phentermin HCl 37.5 MG HCl 37.5 MG t} e HCl 37.5 MG FLUoxetine FLUoxetine No FLUoxetine HCl 40 MG HCl 40 MG HCl 40 MG Azelastine Azelastine No Azelastine HCl 0.05 % HCl 0.05 % HCl 0.05 % Omeprazole Omeprazole No Omeprazole 40 MG 40 MG 40 MG traMADol traMADol No traMADol HCl 50 MG HCl 50 MG HCl 50 MG Clindamycin Clindamycin No Clindamyci HCl HCl n HCl busPIRone busPIRone No 1{table TID busPIRone HCl 10 MG HCl 10 MG t} HCl 10 MG Xiidra 5 % Xiidra 5 % No Xiidra 5 % Sulfamethox Sulfamethox No Sulfametho azole azole xazole Pregabalin Pregabalin No Pregabalin 75 MG 75 MG 75 MG Phentermine Phentermine No 1{table QD Phentermin HCl 37.5 MG HCl 37.5 MG t} e HCl 37.5 MG Sulfamethox Sulfamethox No Sulfametho azole azole xazole busPIRone busPIRone No 1{table TID busPIRone HCl 10 MG HCl 10 MG t} HCl 10 MG traMADol traMADol No traMADol HCl 50 MG HCl 50 MG HCl 50 MG Azelastine Azelastine No Azelastine HCl 0.05 % HCl 0.05 % HCl 0.05 % Pregabalin Pregabalin No Pregabalin 75 MG 75 MG 75 MG Phentermine Phentermine No 1{table QD Phentermin HCl 37.5 MG HCl 37.5 MG t} e HCl 37.5 MG FLUoxetine FLUoxetine No FLUoxetine HCl 40 MG HCl 40 MG HCl 40 MG Xiidra 5 % Xiidra 5 % No Xiidra 5 % Omeprazole Omeprazole No Omeprazole 40 MG 40 MG 40 MG Clindamycin Clindamycin No Clindamyci HCl HCl n HCl Sulfamethox Sulfamethox No Sulfametho azole azole xazole Azelastine Azelastine No Azelastine HCl 0.05 % HCl 0.05 % HCl 0.05 % Xiidra 5 % Xiidra 5 % No Xiidra 5 % traMADol traMADol No traMADol HCl 50 MG HCl 50 MG HCl 50 MG Phentermine Phentermine No 1{table QD Phentermin HCl 37.5 MG HCl 37.5 MG t} e HCl 37.5 MG Clindamycin Clindamycin No Clindamyci HCl HCl n HCl busPIRone busPIRone No 1{table TID busPIRone HCl 10 MG HCl 10 MG t} HCl 10 MG Solifenacin Solifenacin No Solifenaci Succinate Succinate n 10 MG 10 MG Succinate 10 MG Omeprazole Omeprazole No Omeprazole 40 MG 40 MG 40 MG Pregabalin Pregabalin No Pregabalin 75 MG 75 MG 75 MG FLUoxetine FLUoxetine No FLUoxetine HCl 40 MG HCl 40 MG HCl 40 MG Cyanocobala Cyanocobala No Cyanocobal min 1000 min 1000 stafford 1000 MCG/ML MCG/ML MCG/ML Phentermine Phentermine No 1{table QD Phentermin HCl 37.5 MG HCl 37.5 MG t} e HCl 37.5 MG Pregabalin Pregabalin No Pregabalin 75 MG 75 MG 75 MG Clindamycin Clindamycin No Clindamyci HCl HCl n HCl Solifenacin Solifenacin No Solifenaci Succinate Succinate n 10 MG 10 MG Succinate 10 MG traMADol traMADol No traMADol HCl 50 MG HCl 50 MG HCl 50 MG FLUoxetine FLUoxetine No FLUoxetine HCl 40 MG HCl 40 MG HCl 40 MG busPIRone busPIRone No 1{table TID busPIRone HCl 10 MG HCl 10 MG t} HCl 10 MG Omeprazole Omeprazole No Omeprazole 40 MG 40 MG 40 MG Xiidra 5 % Xiidra 5 % No Xiidra 5 % Sulfamethox Sulfamethox No Sulfametho azole azole xazole Azelastine Azelastine No Azelastine HCl 0.05 % HCl 0.05 % HCl 0.05 % Cyanocobala Cyanocobala No Cyanocobal min 1000 min 1000 stafford 1000 MCG/ML MCG/ML MCG/ML Phentermine Phentermine No 1{table QD Phentermin HCl 37.5 MG HCl 37.5 MG t} e HCl 37.5 MG Pregabalin Pregabalin No Pregabalin 75 MG 75 MG 75 MG Clindamycin Clindamycin No Clindamyci HCl HCl n HCl Solifenacin Solifenacin No Solifenaci Succinate Succinate n 10 MG 10 MG Succinate 10 MG traMADol traMADol No traMADol HCl 50 MG HCl 50 MG HCl 50 MG FLUoxetine FLUoxetine No FLUoxetine HCl 40 MG HCl 40 MG HCl 40 MG busPIRone busPIRone No 1{table TID busPIRone HCl 10 MG HCl 10 MG t} HCl 10 MG Omeprazole Omeprazole No Omeprazole 40 MG 40 MG 40 MG Xiidra 5 % Xiidra 5 % No Xiidra 5 % Sulfamethox Sulfamethox No Sulfametho azole azole xazole Azelastine Azelastine No Azelastine HCl 0.05 % HCl 0.05 % HCl 0.05 % Cyanocobala Cyanocobala No Cyanocobal min 1000 min 1000 stafford 1000 MCG/ML MCG/ML MCG/ML Phentermine Phentermine No 1{table QD Phentermin HCl 37.5 MG HCl 37.5 MG t} e HCl 37.5 MG Pregabalin Pregabalin No Pregabalin 75 MG 75 MG 75 MG Clindamycin Clindamycin No Clindamyci HCl HCl n HCl Solifenacin Solifenacin No Solifenaci Succinate Succinate n 10 MG 10 MG Succinate 10 MG traMADol traMADol No traMADol HCl 50 MG HCl 50 MG HCl 50 MG FLUoxetine FLUoxetine No FLUoxetine HCl 40 MG HCl 40 MG HCl 40 MG Azelastine Azelastine No Azelastine HCl 0.05 % HCl 0.05 % HCl 0.05 % Omeprazole Omeprazole No Omeprazole 40 MG 40 MG 40 MG Xiidra 5 % Xiidra 5 % No Xiidra 5 % Sulfamethox Sulfamethox No Sulfametho azole azole xazole busPIRone busPIRone No 1{table TID busPIRone HCl 10 MG HCl 10 MG t} HCl 10 MG Sulfamethox Sulfamethox No Sulfametho azole azole xazole traMADol traMADol No traMADol HCl 50 MG HCl 50 MG HCl 50 MG Xiidra 5 % Xiidra 5 % No Xiidra 5 % Cyanocobala Cyanocobala No Cyanocobal min 1000 min 1000 stafford 1000 MCG/ML MCG/ML MCG/ML Clindamycin Clindamycin No Clindamyci HCl HCl n HCl Solifenacin Solifenacin No Solifenaci Succinate Succinate n 10 MG 10 MG Succinate 10 MG Azelastine Azelastine No Azelastine HCl 0.05 % HCl 0.05 % HCl 0.05 % busPIRone busPIRone No 1{table TID busPIRone HCl 10 MG HCl 10 MG t} HCl 10 MG FLUoxetine FLUoxetine No FLUoxetine HCl 40 MG HCl 40 MG HCl 40 MG Pregabalin Pregabalin No Pregabalin 75 MG 75 MG 75 MG Omeprazole Omeprazole No Omeprazole 40 MG 40 MG 40 MG Phentermine Phentermine No 1{table QD Phentermin HCl 37.5 MG HCl 37.5 MG t} e HCl 37.5 MG Clindamycin Clindamycin No Clindamyci HCl HCl n HCl FLUoxetine FLUoxetine No FLUoxetine HCl 40 MG HCl 40 MG HCl 40 MG Sulfamethox Sulfamethox No Sulfametho azole azole xazole busPIRone busPIRone No busPIRone HCl 10 MG HCl 10 MG HCl 10 MG Xiidra 5 % Xiidra 5 % No Xiidra 5 % traMADol traMADol No traMADol HCl 50 MG HCl 50 MG HCl 50 MG Cyanocobala Cyanocobala No Cyanocobal min 1000 min 1000 stafford 1000 MCG/ML MCG/ML MCG/ML Azelastine Azelastine No Azelastine HCl 0.05 % HCl 0.05 % HCl 0.05 % Pregabalin Pregabalin No Pregabalin 75 MG 75 MG 75 MG Phentermine Phentermine No 1{table QD Phentermin HCl 37.5 MG HCl 37.5 MG t} e HCl 37.5 MG Omeprazole Omeprazole No Omeprazole 40 MG 40 MG 40 MG Solifenacin Solifenacin No Solifenaci Succinate Succinate n 10 MG 10 MG Succinate 10 MG Clindamycin Clindamycin No Clindamyci HCl HCl n HCl FLUoxetine FLUoxetine No FLUoxetine HCl 40 MG HCl 40 MG HCl 40 MG Sulfamethox Sulfamethox No Sulfametho azole azole xazole busPIRone busPIRone No busPIRone HCl 10 MG HCl 10 MG HCl 10 MG Xiidra 5 % Xiidra 5 % No Xiidra 5 % traMADol traMADol No traMADol HCl 50 MG HCl 50 MG HCl 50 MG Cyanocobala Cyanocobala No Cyanocobal min 1000 min 1000 stafford 1000 MCG/ML MCG/ML MCG/ML Azelastine Azelastine No Azelastine HCl 0.05 % HCl 0.05 % HCl 0.05 % Pregabalin Pregabalin No Pregabalin 75 MG 75 MG 75 MG Phentermine Phentermine No 1{table QD Phentermin HCl 37.5 MG HCl 37.5 MG t} e HCl 37.5 MG Omeprazole Omeprazole No Omeprazole 40 MG 40 MG 40 MG Solifenacin Solifenacin No Solifenaci Succinate Succinate n 10 MG 10 MG Succinate 10 MG Cyanocobala Cyanocobala No Cyanocobal min 1000 min 1000 stafford 1000 MCG/ML MCG/ML MCG/ML Phentermine Phentermine No 1{table QD Phentermin HCl 37.5 MG HCl 37.5 MG t} e HCl 37.5 MG Pregabalin Pregabalin No Pregabalin 75 MG 75 MG 75 MG Clindamycin Clindamycin No Clindamyci HCl HCl n HCl Solifenacin Solifenacin No Solifenaci Succinate Succinate n 10 MG 10 MG Succinate 10 MG traMADol traMADol No traMADol HCl 50 MG HCl 50 MG HCl 50 MG FLUoxetine FLUoxetine No FLUoxetine HCl 40 MG HCl 40 MG HCl 40 MG busPIRone busPIRone No 1{table TID busPIRone HCl 10 MG HCl 10 MG t} HCl 10 MG Omeprazole Omeprazole No Omeprazole 40 MG 40 MG 40 MG Xiidra 5 % Xiidra 5 % No Xiidra 5 % Sulfamethox Sulfamethox No Sulfametho azole azole xazole Azelastine Azelastine No Azelastine HCl 0.05 % HCl 0.05 % HCl 0.05 % Azelastine Azelastine No Azelastine HCl 0.05 % HCl 0.05 % HCl 0.05 % Pregabalin Pregabalin No Pregabalin 75 MG 75 MG 75 MG traMADol traMADol No traMADol HCl 50 MG HCl 50 MG HCl 50 MG Clindamycin Clindamycin No Clindamyci HCl HCl n HCl busPIRone busPIRone No 1{table TID busPIRone HCl 10 MG HCl 10 MG t} HCl 10 MG FLUoxetine FLUoxetine No 1{capsu QD FLUoxetine HCl 40 MG HCl 40 MG le} HCl 40 MG Sulfamethox Sulfamethox No Sulfametho azole azole xazole Xiidra 5 % Xiidra 5 % No Xiidra 5 % Omeprazole Omeprazole No Omeprazole 40 MG 40 MG 40 MG Phentermine Phentermine No 1{table QD Phentermin HCl 37.5 MG HCl 37.5 MG t} e HCl 37.5 MG Phentermine Phentermine No 1{table QD Phentermin HCl 37.5 MG HCl 37.5 MG t} e HCl 37.5 MG Eszopiclone Eszopiclone No 1{table QD Eszopiclon 3 MG 3 MG t_immed e 3 MG iately_ before_ bedtime } Solifenacin Solifenacin No 1{table QD Solifenaci Succinate Succinate t} n 10 MG 10 MG Succinate 10 MG Sulfamethox Sulfamethox No Sulfametho azole azole xazole Pregabalin Pregabalin No Pregabalin 75 MG 75 MG 75 MG Xiidra 5 % Xiidra 5 % No Xiidra 5 % Clindamycin Clindamycin No Clindamyci HCl HCl n HCl Azelastine Azelastine No Azelastine HCl 0.05 % HCl 0.05 % HCl 0.05 % FLUoxetine FLUoxetine No 1{capsu QD FLUoxetine HCl 40 MG HCl 40 MG le} HCl 40 MG Omeprazole Omeprazole No Omeprazole 40 MG 40 MG 40 MG traMADol traMADol No traMADol HCl 50 MG HCl 50 MG HCl 50 MG busPIRone busPIRone No 1{table TID busPIRone HCl 10 MG HCl 10 MG t} HCl 10 MG Solifenacin Solifenacin 2021- No 1{table QD Solifenaci Succinate Succinate 03-27 t} n 10 MG 10 MG 00:00 Succinate :00 10 MG Solifenacin Solifenacin 2- No 1{table QD Solifenaci Succinate Succinate - t} n 10 MG 10 MG 00:00 Succinate :00 10 MG Solifenacin Solifenacin 2- No 1{table QD Solifenaci Succinate Succinate 03-27 t} n 10 MG 10 MG 00:00 Succinate :00 10 MG Solifenacin Solifenacin 2- No 1{table QD Solifenaci Succinate Succinate 03-27 t} n 10 MG 10 MG 00:00 Succinate :00 10 MG Solifenacin Solifenacin 2- No 1{table QD Solifenaci Succinate Succinate -08 t} n 10 MG 10 MG 00:00 Succinate :00 10 MG Vital Signs Vital Name Observation Time Observation Value Comments Source height 2022-07-16 14:20:00 59 [in_i] [facility] weight 2022-07-16 14:20:00 180 [lb_av] [facility] bmi 2022-07-16 14:20:00 36.35 kg/m2 [facility] height 2022-02-16 08:00:00 59 [in_i] Common S [facility] weight 2022-02-16 08:00:00 180 [lb_av] Common [facility] temperature 2022-02-16 08:00:00 97.8 [degF] [facility] bmi 2022-02-16 08:00:00 36.35 kg/m2 [facility] oximetry 2022-02-16 08:00:00 98 % Common [facility] respiratory rate 2022-02-16 08:00:00 16 /min Comm on [facility] blood pressure 2022-02-16 08:00:00 128 mm[Hg] Common [facility] - systolic [facility] blood pressure 2022-02-16 08:00:00 68 mm[Hg] Common [facility] - diastolic [facility] height 2022-02-16 08:00:00 59 [in_i] Common S [facility] weight 2022-02-16 08:00:00 180 [lb_av] Common [facility] temperature 2022-02-16 08:00:00 97.8 [degF] Common S [facility] bmi 2022-02-16 08:00:00 36.35 kg/m2 [facility] S [facility] oximetry 2022-02-16 08:00:00 98 % [facility] respiratory rate 2022-02-16 08:00:00 16 /min Comm on [facility] blood pressure 2022-02-16 08:00:00 128 mm[Hg] Common [facility] - systolic [facility] blood pressure 2022-02-16 08:00:00 68 mm[Hg] Common [facility] - diastolic [facility] height 2021-12-27 15:00:00 59 [in_i] [facility] weight 2021-12-27 15:00:00 180 [lb_av] [facility] temperature 2021-12-27 15:00:00 97.9 [degF] [facility] bmi 2021-12-27 15:00:00 36.35 kg/m2 [facility] oximetry 2021-12-27 15:00:00 99 % [facility] respiratory rate 2021-12-27 15:00:00 18 /min Comm on [facility] blood pressure 2021-12-27 15:00:00 122 mm[Hg] Common [facility] - systolic [facility] blood pressure 2021-12-27 15:00:00 70 mm[Hg] [facility] - diastolic [facility] Systolic blood 2021-11-06 13:20:00 132 mm[Hg] Faith Seybold pressure Diastolic blood 2021-11-06 13:20:00 87 mm[Hg] Kelse y Seybold pressure Heart rate 2021-11-06 13:20:00 65 /min Faith harleybold Body temperature 2021-11-06 13:20:00 36.72 Rachelle Matilda ey Seybold Respiratory rate 2021-11-06 13:20:00 14 /min Matilda harley Seybold Body height 2021-11-06 13:20:00 149.9 cm Faith harleybold Body weight 2021-11-06 13:20:00 81.647 kg Faith Watson eybold BMI 2021-11-06 13:20:00 36.36 kg/m2 Faith harleybold height 2021-09-11 14:00:00 59 [in_i] [facility] weight 2021-09-11 14:00:00 190 [lb_av] [facility] bmi 2021-09-11 14:00:00 38.37 kg/m2 [facility] Respitory Rate 2018-08-21 15:20:00 Yasmine Chisholm Systolic (mm Hg) 2018-08-21 15:20:00 Dariusz Wynne Diastolic (mm Hg) 2018-08-21 15:20:00 Mem orial Ricci Respitory Rate 2018-08-21 14:46:00 [facility] [place] Systolic (mm Hg) 2018-08-21 14:46:00 Dariusz rial [place] Diastolic (mm Hg) 2018-08-21 14:46:00 Mem orial Ricci Systolic (mm Hg) 2018-08-21 14:45:00 Dariusz rial Ricci Diastolic (mm Hg) 2018-08-21 14:45:00 Mem orial Ricci Respitory Rate 2018-08-21 14:45:00 Memori al [place] Heart Rate 2018-08-19 20:04:00 [facility] Temperature Oral (F) 2018-08-19 20:04:00 98.1 F [facility] Weight 2018-08-19 19:34:00 [facility] BMI Calculated 2018-08-19 19:34:00 [facility] [place] Height 2018-08-19 19:34:00 149.86 cm [facility] Weight 2016-06-15 17:46:00 [facility] BMI Calculated 2016-06-15 17:46:00 Memori al [facility] Height 2016-06-15 17:46:00 149.86 cm [facility] [place] Systolic (mm Hg) 2016-06-15 17:46:00 Dariusz rial Ricci Diastolic (mm Hg) 2016-06-15 17:46:00 Mem orial [place] Heart Rate 2016-06-15 17:46:00 [facility] [place] Procedures Procedure Date / Time Performing Clinician Source Performed REFERRAL- REQUEST/RESPONSE 2022-11-07 05:01:00 Doctor Unassigned , [facility] PHYSICIAN ORDERS 2022-10-11 06:01:00 Doctor Unassigned, [facility] Injection procedure for 2020-06-10 20:17:37 Dariusz rial [place] shoulder arthrography or enhanced CT/MRI shoulder arthrography Arthroscopy of [facility] [place] knee<sup>2</sup> Caesarean [facility] [place] section<sup>3</sup> Cholecystectomy [facility] History of sleeve [facility] Marissa nn gastrectomy Laparoscopic adjustable [facility] [place] gastric banding Ligament reconstruction [facility] Encounters Start End Encounter Admission Attending Care Care Encounter Source Date/Time Date/Time Type Type Clinicians Facility Department ID 2023-02-14 Outpatient Morales, STLMLC STLMLC [id number] Common 08:14:00 Selam [id number] [facility] 2022-07-12 Outpatient Morales, STLMLC STLMLC [id number] Common 07:57:00 Selam [id number] [facility] 2022-02-14 Outpatient Morales, STLMLC STLMLC [id number] Common 11:19:00 Selam [facility] 2022-01-10 Outpatient Morales, STLMLC STLMLC [id number] Common 14:28:00 Selam [facility] 2021-12-29 Outpatient Morales, STLMLC STLMLC [id number] Common 09:24:01 Selam [facility] 2021-12-26 Outpatient Morales, STLMLC STLMLC [id number] Common 14:31:01 Selam [facility] 2021-11-14 Outpatient Prezas, STLMLC STLMLC [id number] Common 15:38:00 Baxter [facility] 2021-10-30 Outpatient Morales, STLMLC STLMLC [id number] Common 12:44:00 Selam [facility] 2021-09-07 Outpatient Morales, STLMLC STLMLC [id number] Common 14:27:02 Selam [facility] 2021-08-30 Outpatient Hope, STLMLC STLMLC [id number] Common 14:38:09 [facility] 2021-08-30 Outpatient [place], STLMLC STLMLC [id number] Common 10:59:19 Jonathan [id number] [facility] 2023-05-10 2023-05-10 Emergency ER JOHAN, [facility] [id number] [place] 12:53:00 16:26:00 AYE -[id number] [facility] 2023-01-25 2023-01-25 Outpatient Maritza SHERIDAN [facility] [id number] Univers 08:45:00 08:45:00 BENITO gonzáles [facility] 2023-01-23 2023-01-23 Outpatient Maritza SHERIDAN [facility] [id number] Univers 10:00:00 10:00:00 BENITO gonzáles [facility] 2022-11-07 2022-11-07 Orders Doctor LISA [id number] Univers 00:00:00 00:00:00 Only Unassigned, JUAN [id number] [facility] [id number] Pranav as [phone] [address] 2022-10-11 2022-10-11 Orders Doctor LISA [id number] Univers 00:00:00 00:00:00 Only Unassigned, JUAN [id number] [facility] [id number] Pranav as [id number] [address] 2022-09-07 2022-09-07 (TEL) STLMLC STLMLC [id number] Co mmon 00:00:00 00:00:00 [facility] 2022-08-10 2022-08-10 Outpatient Maritza ANITRAKe [facility] [id number] Univers 13:00:00 13:00:00 AURELIA gonzáles [facility] 2022-08-02 2022-08-02 (TEL) STLMLC STLMLC [id number] Co mmon 00:00:00 00:00:00 Spirit - [facility] 2022-07-16 2022-07-16 OFFICE STLMLC STLMLC [id number] Co mmon 00:00:00 00:00:00 VISIT [facility] - [facility] LEVEL 3 [facility] 2022-07-10 2022-07-10 Outpatient Deshazo_T DMG [id number] [id number] [facility] 00:00:00 00:00:00 [id number] [facility] 2022-07-09 2022-07-09 Outpatient Deshazo_T DMG DMG [id number] [facility] 00:00:00 00:00:00 [id number] [facility] 2022-06-27 2022-06-27 Outpatient DMG DMG [id number] [facility] 00:00:00 00:00:00 [id number] [facility] 2022-06-21 2022-06-21 (TEL) STLMLC STLMLC [id number] Co mmon 00:00:00 00:00:00 [facility] 2022-05-29 2022-05-29 (TEL) STLMLC STLMLC [id number] Co mmon 00:00:00 00:00:00 [facility] 2022-05-22 2022-05-22 (TEL) STLMLC STLMLC [id number] Co mmon 00:00:00 00:00:00 [facility] 2022-04-13 2022-04-13 Outpatient DMG DMG [id number] [facility] 00:00:00 00:00:00 [id number] [facility] 2022-03-20 2022-03-20 (TEL) STLMLC STLMLC [id number] Co mmon 00:00:00 00:00:00 [facility] 2022-02-16 2022-02-16 (MCR WELL) STLMLC STLMLC [id number] Common 00:00:00 00:00:00 Medicare Spiri t Wellness - [facility] 2022-02-16 2022-02-16 OFFICE STLMLC STLMLC [id number] Co mmon 00:00:00 00:00:00 VISIT [facility] PT - [facility] LEVEL 4 [facility] 2022-01-10 2022-01-10 (TEL) STLMLC STLMLC [id number] Co mmon 00:00:00 00:00:00 [facility] 2021-12-27 2021-12-27 (HOSP F/U) STLMLC STLMLC [id number] Common 00:00:00 00:00:00 Hospital Spiri t Follow Up - [facility] 2021-12-18 2021-12-18 Outpatient FAITH MARCH [id number] Faith 09:30:00 09:30:00 NISHI guy 2021-12-11 2021-12-11 Outpatient CRISTOBAL FAITH RODRIGUEZ [id number] Faith 00:00:00 00:00:00 FREDERIC Seybol d 2021-12-04 2021-12-04 (TEL) STLMLC STLMLC [id number] Co mmon 00:00:00 00:00:00 [facility] 2021-11-10 2021-11-10 Outpatient LENCHOVIVEKFAITH Watson [id number] Faith 00:00:00 00:00:00 FREDERIC Seybol d 2021-11-09 2021-11-09 Outpatient FAITH MONTENEGRO [id number] Faith 00:00:00 00:00:00 ZEN Seybol d 2021-11-06 2021-11-06 Outpatient LAB90 FAITH RODRIGUEZ [id number] Faith 14:05:00 14:05:00 Seybol d 2021-11-06 2021-11-06 Outpatient LAB90 FAITH RODRIGUEZ [id number] Faith 09:30:00 09:30:00 Seybol d 2021-11-06 2021-11-06 Office Kvng Olvera [id number] Faith 08:30:00 09:00:00 Visit Frederic Alatorre [id number] Se mika [id number] 2021-11-06 2021-11-06 Outpatient MIKEFAITH GREGORIO [id number] Faith 00:00:00 00:00:00 AHMED Seybol d 2021-11-03 2021-11-03 Outpatient FAITH LYNCH [id number] Faith 00:00:00 00:00:00 MAN-KAVITHA Seybo ld 2021-09-11 2021-09-11 OFFICE STLMLC STLMLC [id number] Co mmon 00:00:00 00:00:00 VISIT [facility] PT LEVEL 4 - [facility] 2021-09-03 2021-09-03 Emergency ER ALFA, [facility] [id number] [place] 15:42:00 17:10:00 PRAFUL -[id number] [facility] 2020-06-10 2020-06-11 Outpt Diag nullFlavo [facility] [id number] Memoria 18:38:00 05:59:00 Services r Outpatient 00 l Imaging [facility] 2020-06-10 2020-06-11 Outpt Diag nullFlavo [facility] [id number] Memoria 18:38:00 05:59:00 Services r Outpatient 00 l Imaging [facility] 2020-06-10 2020-06-10 Outpatient [place], [facility] [id number] 12:38:00 23:59:00 Alfredo Alvaro 00 2019-11-24 2019-11-24 [facility] [id number] Common 09:38:00 09:38:00 t [facility] 2019-11-20 2019-11-20 [facility] [id number] Common 10:15:00 10:15:00 t [facility] 2019-09-22 2019-09-22 [facility] [id number] Common 09:35:00 09:35:00 t Bone [facility] Sp[facility] Systems 2019-09-15 2019-09-15 [facility] [id number] Common 13:04:00 13:04:00 t [facility] 2019-08-13 2019-08-13 [facility] [id number] Common 10:00:00 10:00:00 t [facility] Sp[facility] t [facility] - [facility] 2019-08-09 2019-08-09 [facility] [id number] [place] 16:17:00 16:58:00 QUINTON [id number] [facility] 2018-08-21 2018-08-21 Day nullFlavo [facility] [id number] [place] 11:09:00 15:25:00 Surgery [facility] 00 [facility] 2018-08-21 2018-08-21 Day [facility]Flavo [facility] [id number] [place] 11:09:00 15:25:00 Surgery [facility] 00 [facility] 2018-08-21 2018-08-21 Outpatient JESSE Venegas [facility] [id number] 05:09:00 09:25:00 Chris 00 2017-07-15 2017-07-15 Emergency ER STACI, [facility] [id number] [place] 09:51:00 13:20:00 NICKI -[id number] [facility] 2016-06-15 2016-07-15 Recurring nullFlavo [facility] [id number] [place] 14:00:00 05:59:[address] 2016-06-15 2016-07-15 Recurring nullFlavo [facility] [id number] [place] 14:00:00 05:59:[address] 2016-06-15 2016-07-14 Outpatient Physician, [facility] [id number] 08:00:00 23:59:00 Non 00 Associated 2014-11-05 2014-11-05 Emergency ER CROW, [facility] [id number] [place] 19:56:00 22:50:00 OBIDIKE [id number] [facility] Results This patient has no known results.
[2023-07-05] MEDS ORDERED: HYDROCODONE/APAP 7.5/325 MG TAB ONE (15:40)
--- NOTE | 2023-07-05 16:31 | EDPHYS ---
Physician Documentation [facility] Name: Luba Ng Age: 58 yrs Sex: Female : 1965 Arrival Date: 07/05/2023 Time: 15:11 Bed IW2 Private MD: ED Physician Tevin Morales HPI: 07/05 15:33 This 58 yrs old Female presents to ER via Wheelchair with complaints of Fall snw Injury. 15:33 Details of fall: The patient fell from seated position, while transferring. Onset: The snw symptoms/episode began/occurred just prior to arrival. Associated injuries: The patient sustained left knee and posterior aspect of left shoulder, contusion, painful injury. Severity of symptoms: At their worst the symptoms were moderate. The patient has experienced similar episodes in the past, a few times. It is unknown whether or not the patient has recently seen a physician. Historical: - Allergies: 15:24 No Known Allergies; hb - PMHx: 15:24 depressive disorder; Anxiety; Herniated disc; Polio; hb - PSHx: 15:24 Cholecystectomy; hysterectomy; vertical gastrectomy; hysterectomy; hb - Immunization history:: Adult Immunizations up to date. - Social history:: Smoking status: Patient denies any tobacco usage or history of. ROS: 15:33 Constitutional: Negative for fever, chills, and weight loss, Eyes: Negative for injury, snw pain, redness, and discharge, ENT: Negative for injury, pain, and discharge, Neck: Negative for injury, pain, and swelling, Cardiovascular: Negative for chest pain, palpitations, and edema, Respiratory: Negative for shortness of breath, cough, wheezing, and pleuritic chest pain, Abdomen/GI: Negative for abdominal pain, nausea, vomiting, diarrhea, and constipation, Back: Negative for injury and pain, : Negative for injury, bleeding, discharge, and swelling, Skin: Negative for injury, rash, and discoloration, Psych: Negative for depression, anxiety, suicide ideation, homicidal ideation, and hallucinations, 15:33 MS/extremity: Positive for contusion, tenderness, of the left knee and posterior aspect of left shoulder and anterior aspect of left shoulder, Exam: 15:31 Constitutional: This is a well developed, well nourished patient who is awake, alert, snw and in no acute distress. Head/Face: Normocephalic, atraumatic. Eyes: Pupils equal round and reactive to light, extra-ocular motions intact. Lids and lashes normal. Conjunctiva and sclera are non-icteric and not injected. Cornea within normal limits. Periorbital areas with no swelling, redness, or edema. ENT: Nares patent. No nasal discharge, no septal abnormalities noted. Tympanic membranes are normal and external auditory canals are clear. Oropharynx with no redness, swelling, or masses, exudates, or evidence of obstruction, uvula midline. Mucous membranes moist. Neck: Trachea midline, no thyromegaly or masses palpated, and no cervical lymphadenopathy. Supple, full range of motion without nuchal rigidity, or vertebral point tenderness. No Meningismus. Chest/axilla: Normal chest wall appearance and motion. Nontender with no deformity. No lesions are appreciated. Cardiovascular: Regular rate and rhythm with a normal S1 and S2. No gallops, murmurs, or rubs. Normal PMI, no JVD. No pulse deficits. Respiratory: Lungs have equal breath sounds bilaterally, clear to auscultation and percussion. No rales, rhonchi or wheezes noted. No increased work of breathing, no retractions or nasal flaring. Abdomen/GI: Soft, non-tender, with normal bowel sounds. No distension or tympany. No guarding or rebound. No evidence of tenderness throughout. Back: No spinal tenderness. No costovertebral tenderness. Full range of motion. Skin: Warm, dry with normal turgor. Normal color with no rashes, no lesions, and no evidence of cellulitis. Neuro: Awake and alert, GCS 15, oriented to person, place, time, and situation. hx of polio, paraplegia Psych: Awake, alert, with orientation to person, place and time. Behavior, mood, and affect are within normal limits. 15:31 Musculoskeletal/extremity: Extremities: noted in the anterior aspect of left shoulder and posterior aspect of left shoulder: tenderness, noted in the left knee: contusion, tenderness, ROM: no acute changes, Circulation is intact in all extremities. Sensation intact. Weight bearing: can bear weight with assistance only, pt in motorized w/c, Vital Signs: 15:21 BP 169 / 103; Pulse 108; Resp 18; Temp 98.5; Pulse Ox 99% on R/A; Weight 99.79 kg; hb Height 4 ft. 11 in. ; Pain 8/10; 15:21 Body Mass Index 44.43 (99.79 kg, 149.86 cm) hb 15:21 Pain Scale: Adult hb MDM: 15:19 Patient medically screened. snw 16:20 Differential diagnosis: contusion. Data reviewed: vital signs, nurses notes, radiologic snw studies, plain films, Left shoulder, left knee - osteoporotic bone, no noted fractures or dislocations . I considered the following discharge prescriptions or medication management in the emergency department Medications were administered in the Emergency Department. See MAR. Care significantly affected by the following chronic conditions: polio. Counseling: I had a detailed discussion with the patient and/or guardian regarding the historical points, exam findings, and any diagnostic results supporting the discharge/admit diagnosis, the presence of at least one elevated blood pressure reading (>120/80) during this emergency department visit, radiology results, the need for outpatient follow up, for definitive care, to return to the emergency department if symptoms worsen or persist or if there are any questions or concerns that arise at home. Special discussion: Based on the history and exam findings, there is no indication for further emergent testing or inpatient evaluation. I discussed with the patient/guardian the need to see the orthopedic surgeon for further evaluation of the symptoms. I discussed with the patient/guardian the need to see the primary care provider for further evaluation of the symptoms. 07/05 15:25 Order name: Shoulder Left (2 View) XRAY snw 07/05 15:25 Order name: Knee Left 2 View XRAY snw Administered Medications: 15:28 Drug: Hydrocodone-Acetaminophen PO (7.5 mg-325 mg) 1 tabs PO once Route: PO; hb Disposition: 17:23 Co-signature as Attending Physician, Tevin Morales MD I reviewed the patient's care rn provided by the Advanced Practice Provider and agree with the diagnosis and treatment plan. Disposition Summary: 07/05/23 16:30 Discharge Ordered Notes: Location: Home snw Condition: Stable snw Diagnosis - Osteoporosis without pathologic fracture snw - Fall on same level, unspecified - transferring snw Followup: snw - With: Emergency Department - When: As needed - Reason: Worsening of condition Followup: snw - With: Private Physician - When: 2 - 3 days - Reason: Recheck today's complaints, Continuance of care, Re-evaluation by your physician Discharge Instructions: - Discharge Summary Sheet snw - Contusion snw - Fall Prevention in the Home, Adult snw - Shoulder Pain snw - Acute Knee Pain, Adult snw Forms: - Medication Reconciliation Form snw - Thank You Letter snw - Antibiotic Education snw - Prescription Opioid Use snw - Patient Portal Instructions snw - Leadership Thank You Letter snw Prescriptions: - Tramadol 50 mg Oral Tablet - take 1 tablet ORAL route every 8 hours as needed; 12 tablet; Refills: 0, snw Product Selection Permitted Signatures: Dispatcher [employer] EDMS Elizabeth Leary, SENIOR PRODUCT DEVELOPMENT ENGINEER-C SENIOR PRODUCT DEVELOPMENT ENGINEER-Csnw Tevin Morales MD MD rn Jeri Carpenter RN RN
--- NOTE | 2023-07-05 16:31 | ER ---
Nurse's Notes [facility] Name: Luba Ng Age: 58 yrs Sex: Female : 1965 Arrival Date: 07/05/2023 Time: 15:11 Bed IW2 Private MD: Diagnosis: Osteoporosis without pathologic fracture;Fall on same level, unspecified-transferring Presentation: 07/05 15:21 Chief complaint: Left leg gave out when attempting to transfer into wheelchair, landed hb on both knees on tile floor, c/o pain in left shoulder and bilateral knees 8/10. Coronavirus screen: At this time, the client does not indicate any symptoms associated with coronavirus-19. Ebola Screen: No symptoms or risks identified at this time. Initial Sepsis Screen: Does the patient meet any 2 criteria? No. Patient's initial sepsis screen is negative. Does the patient have a suspected source of infection? No. Patient's initial sepsis screen is negative. Risk Assessment: Do you want to hurt yourself or someone else? Patient reports no desire to harm self or others. Onset of symptoms was June 28, 2023. 15:21 Method Of Arrival: Wheelchair hb 15:21 Acuity: RUBI 4 hb Historical: - Allergies: 15:24 No Known Allergies; hb - PMHx: 15:24 depressive disorder; Anxiety; Herniated disc; Polio; hb - PSHx: 15:24 Cholecystectomy; hysterectomy; vertical gastrectomy; hysterectomy; hb - Immunization history:: Adult Immunizations up to date. - Social history:: Smoking status: Patient denies any tobacco usage or history of. Vital Signs: 15:21 BP 169 / 103; Pulse 108; Resp 18; Temp 98.5; Pulse Ox 99% on R/A; Weight 99.79 kg; hb Height 4 ft. 11 in. ; Pain 8/10; 15:21 Body Mass Index 44.43 (99.79 kg, 149.86 cm) hb 15:21 Pain Scale: Adult hb ED Course: 15:12 Patient arrived in ED. rg4 15:13 Elizabeth eLary FNP-C is [facility]. snw 15:13 Tevin Morales MD is Attending Physician. snw 15:24 Triage completed. hb 15:24 Arm band placed on. hb 16:18 Shoulder Left (2 View) XRAY In Process Unspecified. EDMS 16:18 Knee Left 2 View XRAY In Process Unspecified. EDMS Administered Medications: 15:28 Drug: Hydrocodone-Acetaminophen PO (7.5 mg-325 mg) 1 tabs PO once Route: PO; hb Outcome: 16:30 Discharge ordered by . w 16:43 Patient left the ED. hb Signatures: Dispatcher [employer] EDMS Elizaebth Leary, NEREIDA-C AUTO SERVICE MECHANIC-Csnw Jeri Carpenter RN RN Cherelle Mendenhall rg4 Corrections: (The following items were deleted from the chart) 15:25 15:21 Chief complaint: Left leg gave out when attempting to transfer into wheelchair, hb landed on both knees on tile floor, c/o pain in left shoulder and bilateral knees 7/10. hb 15:25 15:21 BP 169 / 103; Pulse 108bpm; Resp 18bpm; Pulse Ox 99% RA; Temp 98.5F; Pain 8/10, hb Adult; hb
--- NOTE | 2023-07-05 16:46 | RAD REPORT ---
EXAM DESCRIPTION: RAD - Knee Left 2 View - 07/05/2023 4:17 pm CLINICAL HISTORY: Pain;Smash injury COMPARISON: Knee Left 3 View dated 07/16/2022; Knee Left 3 View dated 05/24/2016 TECHNIQUE: Left knee, 3 views. FINDINGS: No fracture, dislocation or periosteal reaction.No joint effusion seen. Advanced degenerat damien changes of the knee with joint space narrowing most pronounced medially. These may have slightly progressed since the prior exam. Diffuse osteopenia. No soft tissue abnormality. Clinical concerns for internal derangement or occult bony injury could be further assessed with MR im aging. IMPRESSION: No acute osseus abnormality. Degenerative changes as above.
[2023-07-05 16:47] VITALS: BP 169/103; TEMP 98.5; O2SAT 99
--- NOTE | 2023-07-05 16:48 | RAD REPORT ---
EXAM DESCRIPTION: RAD - Shoulder Left 2 View - 07/05/2023 4:17 pm CLINICAL HISTORY: SMASH INJURY COMPARISON: Shoulder Left 2 View dated 06/30/2019 TECHNIQUE: Internal and external rotation views of the left shoulder were obtained. FINDINGS: There is no fracture or dislocation. AC joint moderate degenerative changes. As best evalu ated the glenohumeral joint may have mild degenerative changes. No acute or suspicious findings. IMPRESSION: No acute osseus abnormality. Degenerative changes as above.
== END 2023-07-05 16:43 | disposition home or self-care (01) ==
LOC: ER 15:11
DX: M81.0 Age-related osteoporosis without current pathological fracture (principal); W18.30XA Fall on same level, unspecified, initial encounter; S80.02XA Contusion of left knee, initial encounter; S40.012A Contusion of left shoulder, initial encounter
CPT/HCPCS: 99282

== ENCOUNTER 2024-12-19 18:44 | Emergency (ER) | payer MEDICARE, OTHER ==
--- OUTSIDE RECORDS SUMMARY | 2024-12-19 18:47 | XMS REPORT | Continuity of Care Document ---
Author Name Unknown Address [address] [place] [address] [address] [place] [address] [facility] Address [address] [facility] [address] [place] [address] Care Team Providers Care Emt Driver Name Role Phone Chelsea Montenegro MD Primary Care Physician Jonathan Talbert Attending Clinician Unavailable Selam Morales Attending Clinician Unavailable Frederic Olvera Attending Clinician Unavailable Chaz Hope Attending Clinician Unavailable Doctor Unassigned, [place] Attending Clinician U navailable [email or web address] Attending Clinician UnavailWen Fields PA-C Attending Clinician [phone] WEN WYATT Attending Clinician Unavailable Unknown, Attending Attending Clinician Unavailab le Doctor Unassigned, [place] Attending Clinician U navailable AYE PRADO Attending Clinician Unavailable BENITO SHERIDAN Attending Clinician UnavailAURELIA Lucero Attending Clinician Unavailable Deshazo_T Attending Clinician Unavailable NISHI MARCH Attending Clinician Unavailable FREDERIC OLVERA Attending Clinician Unavailable CHELSEA MONTENEGRO Attending Clinician Unava ilable LAB90 Attending Clinician Unavailable CHING LYNCH Attending Clinician Unavailab PRAFUL Goodwin Attending Clinician Unavailable QUINTON HUBBARD Attending Clinician Unavailab NICKI Melendez Attending Clinician Unavailable KEHINDE MARIA Attending Clinician Unavailable Jonathan Talbert Admitting Clinician Unavailable [email or web address] Admitting Clinician Unavaila ble Deshazo_T Admitting Clinician Unavailable Payers Payer Name Policy Type Policy Number Effective Date Expirati on Date Source Blue Cross [place] of [place] 6 [id number] [facility] [place] [id number] 2023 00:00:00 [place] [employer] [id number] 1998 00:00:00 [employer] (MEDICARE REPLACEMENT HMO) [id number] 2022 00:00:00 [employer] MCR ADVANTAGE WELLMED 1 [id number] 2021 00:00:00 [facility] [employer]EDERATED SALISH HMO 7 [id number] 2021 00:00:00 Problems Condition Name Condition Details Condition Category Status Onset Date Resolution Date Last Treatment Date Treating Clinician Comments Source Urgent desire to urinate Urgent Desire to Urinate Problem Active 4- 00:00: 00 [facility] Gastroesop hageal reflux disease Gastroesop hageal Reflux Disease Problem Active 09-25 00:00: 00 [facility] Recurrent urinary tract infection Recurrent Urinary Tract Infection Problem Active - 00:00: 00 [facility] Female stress incontinen ce Female Stress Incontinen ce Problem Active 09-25 00:00: 00 [facility] Atrophic vaginitis Atrophic Vaginitis Problem Active - 00:00: 00 [facility] Rheumatoid arthritis Rheumatoid Arthritis Problem Active - 00:00: 00 [facility] Fibromyalg ia Fibromyalg ia Problem Active - 00:00: 00 [facility] Urge incontinen ce of urine Urge Incontinen ce of Urine Problem Active 2- 00:00: 00 [facility] Spinal injury Spinal Injury Problem Active 2- 00:00: 00 [facility] Overactive bladder Overactive Bladder Problem Active 2- 00:00: 00 [facility] Anxiety Anxiety Problem Active 2- 00:00: 00 [facility] Depressive disorder Depressive Disorder Problem Active 2- 00:00: 00 [facility] Wheelchair dependent Wheelchair dependent Disease Active 01-23 00:00: 00 [facility] Poliomyeli tis acute, late effect Poliomyeli tis acute, late effect Disease Active 01-23 00:00: 00 [facility] Chronic pain syndrome Chronic pain syndrome Disease Active 01-23 00:00: 00 [facility] Right shoulder pain Right shoulder pain Disease Active 01-23 00:00: 00 [facility] Left shoulder pain Left shoulder pain Disease Active 01-23 00:00: 00 [facility] Age-relate d osteoporos is without current pathologic al fracture Age-relate d osteoporos is without current pathologic al fracture Disease Active 01-23 00:00: 00 [facility] Urinary incontinen ce Urinary incontinen ce Disease Active 01-23 00:00: 00 [facility] Localized edema Localized edema Disease Active 01-23 00:00: 00 [facility] Current mild episode of major depressive disorder Current mild episode of major depressive disorder Disease Active 4-04 00:00: 00 Faith Chacon Functional urinary incontinen ce Functional urinary incontinen ce Disease Active 4-04 00:00: 00 Faith Chacon Gastroesop hageal reflux disease without esophagiti s Gastroesop hageal reflux disease without esophagiti s Disease Active 4-04 00:00: 00 Faith Chacon Post-polio syndrome Post-polio syndrome Disease Active 4-04 00:00: 00 Faith Chacon B12 deficiency B12 deficiency Disease Active 11-06 00:00: 00 Overview: Formattin g of this note might be different from the original. History of Gastric sleeve Faith Chacon Murmur Murmur Disease Active 11-06 00:00: 00 Faith Chacon History of recurrent UTI (urinary tract infection) History of recurrent UTI (urinary tract infection) Disease Active 11-06 00:00: 00 Faith Chacon M75.122 - COMPLETE ROTATR-CUF F TEAR/RUPT M75.122 - COMPLETE ROTATR-CUF F TEAR/RUPT Active 06/07/2020 [facility] Diagnosis Active 2019-08 00:01: 00 2020-08-01 11:16:00 Nasim Wynne UNK UNK Active 08/18/2018 [facility] Diagnosis Active 08-18 00:00: 00 2018-08-19 12:54:00 Nasim Wynne CLOSED REDUCTION PERCUTANEO US PINNINHG CLOSED REDUCTION PERCUTANEO US PINNINHG Active 08/18/2018 [facility] Diagnosis Active 08-18 00:00: 00 2018-09-02 08:25:00 Nasim Wynne Essential hypertensi on, benign Essential hypertensi on, benign Disease Active 2006-08 00:00: 00 [facility] Curvature of spine associated with other condition Curvature of spine associated with other condition Disease Active 2006-08 00:00: 00 Overview: Formattin g of this note might be different from the original. 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 [facility] Unspecifie d disorder of menstruati on and other abnormal bleeding from female genital tract Unspecifie d disorder of menstruati on and other abnormal bleeding from female genital tract Disease Active 2006-08 00:00: 00 [facility] POWER WHEELCHAIR EVAL POWER WHEELCHAIR EVAL Active 08/05/2000 [facility] Diagnosis Active 08-05 00:00: 00 2017-05-14 07:20:00 Nasim Wynne Personal history of poliomyeli tis Personal history of poliomyeli tis 03/10/2019 [facility] Problem 2019-03-10 13:53:20 Nasim Wynne Other [facility] (current) drug therapy 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 03/10/2019 [facility] Problem 2019-03-10 13:53:20 Nasim Wynne PARAPLEGIA , UNSPECIFIE D PARAPLEGIA , UNSPECIFIE D Active [facility] Diagnosis Active 2017-05-14 07:20:00 Nasim Wynne Morbid (severe) obesity due to excess calories Morbid (severe) obesity due to excess calories 03/10/2019 [facility] Problem 2019-03-10 13:53:20 Nasim Wynne Fall from non-moving wheelchair , initial encounter Fall from non-moving wheelchair , initial encounter 03/10/2019 [facility] Problem 2019-03-10 13:53:20 Nasim Wynne Sleep apnea, unspecifie d Sleep apnea, unspecifie d 03/10/2019 [facility] Problem 2019-03-10 13:53:20 Nasim Wynne [id number] BRIGHT (obstructi ve sleep apnea) Problem [facility] [id number] History of sleeve gastrectom y Problem [facility] [id number] Body mass index [BMI] 38.0-38.9, adult Problem [facility] [id number] Wheelchair bound Problem [facility] [id number] History of post-polio syndrome Problem [facility] [id number] Anemia, unspecifie d type Problem [facility] [id number] Overflow incontinen ce Problem [facility] [id number] Moderate episode of recurrent major depressive disorder Problem [facility] Left club foot Problem [facility] [id number] Primary insomnia Problem [facility] [id number] Other obesity due to excess calories Problem [facility] [id number] DAVID (generaliz ed anxiety disorder) Problem [facility] History of Past Illness Condition Name Condition Details Condition Category Status Onset Date Resolution Date Last Treatment Date Treating Clinician Comments Source Displaced fracture of proximal phalanx of left little finger, initial encounter for closed fracture Displaced fracture of proximal phalanx of left little finger, initial encounter for closed fracture 08/27/2018 03/10/2019 [facility] Problem 2018-0 -23 04:54: 06 2019-03-10 13:53:20 2019-03-10 13:53:20 Nasim Wynne Allergies, Adverse Reactions, Alerts Allergy Name Allergy Type Status Severity Reaction(s) Onset Date Inactive Date Treating Clinician Comments Source No Known Medicati on Allergie s No Known Medicati on Allergie s Active Nasim Wynne NO KNOWN ALLERGIE S Drug Class Active [facility] Social History Social Habit Start Date Stop Date Quantity Comments Source History SDOH Alcohol Binge Faith Sebutchchristine History SDOH Alcohol Frequency Faith Napier bold History SDOH Alcohol Std Drinks Faith brennan History of Tobacco Use Common [facility] of Social function 2023-07-09 00:00:00 2023-07-09 00:00:00 [facility] Alcohol Comment 2021-11-06 00:00:00 2021-11-06 00:00:00 rarely Faith Chacon Education 2021-11-06 00:00:00 2021-11-06 00:00:00 12 Faith Chacon Tobacco use and exposure 2021-11-06 00:00:00 2021-11-06 00:00:00 Smokeless tobacco non-user Faith Chacon Alcohol intake 2021-11-06 00:00:00 2021-11-06 00:00:00 Current drinker of alcohol (finding) Faith Chacon Sex assigned at 1965 00:00:00 1965 00:00:00 [facility] Smoking Status Start Date Stop Date Source Never Smoker [facility] Unknown if ever smoked Commo n [facility] Medications Ordered Medication Name Filled Medication Name Start Date Stop Date Current Medication? Ordering Clinician Indication Dosage Frequency Signature (SIG) Comments Components Source ciprofloxac in-dexameth asone 0.3-0.1 % otic drops 2022-08 00:00: 00 Yes [id number] 4[drp] Place 4 Drops in left ear in the morning and 4 Drops in the evening. [facility] Eszopiclone 3 MG Eszopiclone 3 MG 2021-08 00:00: 00 No QD Eszopiclon e 3 MG Azelastine HCl 0.05 % ophthalmic Solution 11-06 08:57: 14 11-06 00:00 :00 No INSTILL 1 DROP INTO AFFECTED EYE TWICE A DAY Faith Chacon Ibuprofen 200 MG oral Tablet 11-06 08:31: 19 11-06 00:00 :00 No 400mg Q.25D Take 400 mg by mouth every 6 hours as needed for pain Faith Chacon CYANOCOBALA MIN IJ 11-06 08:31: 07 11-06 00:00 :00 No 1000mg Inject 1,000 mg as directed once a month Faith Chacon Tramadol HCl 50 MG oral Tablet 11-06 08:31: 00 11-06 00:00 :00 No (Schedule IV Drug) TAKE 1 TABLET BY MOUTH EVERY 8 HOURS NEEDED Faith Chacon Norethin-Et h Estradiol-F e 0.4-35 MG-MCG oral Chewable Tablet 11-06 08:30: 15 11-06 00:00 :00 No Take by mouth Faith Chacon Lifitegrast (Xiidra) 5 % ophthalmic Solution 11-06 08:30: 03 11-06 00:00 :00 No 1[drp] Place 1 drop into both eyes 2 times daily Faith Chacon BUSPIRONE HCL OR 11-06 08:28: 56 11-06 00:00 :00 No Faith Chacon Acetaminoph en (TYLENOL) 500 MG oral Tablet 11-06 08:28: 52 Yes 1000mg Q4H Take 1,000 mg by mouth every 4 hours as needed for pain Faith Chacon Pregabalin (Lyrica) 75 MG oral Capsule 11-06 00:00: 00 Yes [id number] 75mg Take 1 capsule (75 mg total) by mouth 3 times daily Faith Chacon Tramadol HCl 50 MG oral Tablet 11-06 00:00: 00 Yes [id number] 50mg Q.25D Take 1 tablet (50 mg total) by mouth every 6 hours as needed for pain Faith Chacon Solifenacin Succinate 10 MG oral Tablet 10-24 00:00: 00 Yes 10mg Take 10 mg by mouth in the morning and 10 mg in the evening. FOR 90 DAYS. Faith Chacon Pantoprazol e Sodium 40 MG oral Tablet Delayed Response 10-04 00:00: 00 11-06 00:00 :00 No 40mg Take 40 mg by mouth daily Faith Correabutchchristine Cephalexin 500 MG oral Capsule 09-03 00:00: 00 11-06 00:00 :00 No 500mg Take 500 mg by mouth every 12 hours Faith Correabutchchristine Fentanyl 08-21 14:33: 00 No Notes: (Same as: Sublimaze) Preservati ve free. Nasim Wynne Hydromorpho ne 08-21 14:33: 00 No Notes: Same as: Dilaudid Memoscar Wynne Oxycodone 08-21 14:33: 00 No Notes: (Same as: Roxicodone ) Memoscar Wynne Diphenhydra mine 08-21 14:33: 00 No Notes: (Same as: Benadryl) Nasim Wynne Albuterol 0.83 MG/ML Inhalant Solution 08-21 14:33: 00 No Notes: SEE RT DOCUMENTAT ION (Same as: Proventil) Memoscar Wynne Naloxone 08-21 14:33: 00 No Notes: Same as Narcan Memoscar Wynne Flumazenil 08-21 14:33: 00 No Notes: (Same as: Romazicon) Memoscar Wynne Acetaminoph en 08-21 14:33: 00 No Notes: Max acetaminop hen 4000 mg/day (4 gm/day). (Same as: Tylenol Extra Strength) Nasim Wynne Hydralazine 08-21 14:33: 00 No Notes: (Same as: Apresoline ) Push over 5 minutes Memoscar Wynne Labetalol 08-21 14:33: 00 No Notes: (Same as: Normodyne, Trandate) Push over 2 minutes Give bolus over 2-3 minutes. Nasim Wynne Ketorolac 08-21 14:33: 00 No 4 days MEDICATION WASTE Product Size: 30 mg Product Wasted: ___ mg Nasim Wynne Promethazin e 08-21 14:33: 00 No 6.25 mg, Route: IVPB, ONCE, Dosing Weight 85.909, kg, PRN Nausea & Vomiting, Start date: 08/21/18 8:33:00 IMAGING SCHEDULER Nasim Wynne Meperidine 08-21 14:33: 00 No Notes: (Same As: Demerol) Nasim Wynne Ondansetron 08-21 14:33: 00 No Notes: (Same as: Zofran) MEDICATION WASTE Product Size: 4 mg Product Wasted: ___ mg Nasim Wynne fentaNYL (ANES) 08-21 14:16: 00 No Route: IV, Drug form: INJ, ONCE, Stop date: 08/21/18 8:16:00 IMAGING SCHEDULER Nasim Wynne hydrALAZINE (ANES) 08-21 14:16: 00 No Route: IV, Drug form: INJ, ONCE, Stop date: 08/21/18 8:16:00 IMAGING SCHEDULER Nasim Wynne dexamethaso ne (ANES) 08-21 14:16: 00 No Route: IV, Drug form: INJ, ONCE, Stop date: 08/21/18 8:16:00 IMAGING SCHEDULER Nasim Wynne ketOROLAC (ANES) 08-21 14:16: 00 No IV, ONCE Nasim Wynne propofol (ANES) 08-21 14:14: 00 No Route: IV, Drug form: INJ, ONCE, Stop date: 08/21/18 8:14:00 IMAGING SCHEDULER Nasim Wynne ondansetron (ANES) 08-21 14:14: 00 No Route: IV, Drug form: INJ, ONCE, Stop date: 08/21/18 8:14:00 IMAGING SCHEDULER Nasim Wynne midazolam (ANES) 08-21 14:14: 00 No Route: IV, Drug form: SOLN, ONCE, Stop date: 08/21/18 8:14:00 IMAGING SCHEDULER Nasim Wynne lidocaine (ANES) 08-21 14:04: 00 No Route: IV, Drug form: INJ, ONCE, Stop date: 08/21/18 8:04:00 IMAGING SCHEDULER Nasim Wynne ceFAZolin (ANES) 08-21 14:04: 00 No Route: IV, Drug form: INJ, ONCE, Stop date: 08/21/18 8:04:00 IMAGING SCHEDULER Nasim Wynne Lactated Ringers Injection IV (ANES) 1000 mL 08-21 13:32: 00 No Route: IV, Total Volume: 1,000, Start date: 08/21/18 7:32:00 IMAGING SCHEDULER, Stop date: 08/21/18 8:32:00 IMAGING SCHEDULER Nasim Wynne Sodium Chloride 0.9% IV 1,000 mL 08-21 11:31: 00 No 1,000 mL, Rate: 25 ml/hr, Infuse over: 40 hr, Route: IV, Dosing Weight 85.909 kg, Total Volume: 1,000, Start date: 08/21/18 5:31:00 IMAGING SCHEDULER, Duration: 30 day, Stop date: 09/20/18 5:30:00 IMAGING SCHEDULER, 1.93, m2 Nasim Wynne Calcium Chloride 0.0014 MEQ/ML / Potassium Chloride 0.004 MEQ/ML / Sodium Chloride 0.103 MEQ/ML / Sodium Lactate 0.028 MEQ/ML Injectable Solution 08-21 11:31: 00 No 1,000 mL, Rate: 25 ml/hr, Infuse over: 40 hr, Route: IV, Dosing Weight 85.909 kg, Total Volume: 1,000, Start date: 08/21/18 5:31:00 IMAGING SCHEDULER, Duration: 30 day, Stop date: 09/20/18 5:30:00 IMAGING SCHEDULER, 1.93, m2 Nasim Wynne Vitamin D3 08-21 11:29: 00 Yes 1,000 IntlUnit, PO, Daily, 0 Refill(s) Nasim Wynne DICLOFENAC SODIUM ORAL 08-28 16:31: 50 Yes Take by mouth. [facility] mirtazapine 15 mg tablet 2016-08 00:00: 00 Yes TAKE 1 TABLET BY MOUTH AT BEDTIME [facility] FEMCON FE 0.4MG-35MCG (21) & 75 MG (7) ORAL CHEW 2016-08 11:05: 06 Yes None Entered [facility] DEPO-MASTER AT ARMS A IM 2016-08 11:05: 06 Yes None Entered [facility] DICLOFENAC SODIUM ORAL 2016-08 11:05: 06 Yes Take by mouth. [facility] gabapentin 300 mg capsule 2016-08 00:00: 00 Yes TAKE ONE CAPSULE BY MOUTH 3 TIMES A DAY [facility] cyclobenzap rine 10 mg tablet 2016-08 00:00: 00 Yes TAKE 1 TABLET BY MOUTH 3 TIMES A DAY NEEDED [facility] naproxen 375 mg tablet TAKE ONE PILL TWICE DAILY NEEDED naproxen 375 mg tablet TAKE ONE PILL TWICE DAILY NEEDED No naproxen 375 mg tablet TAKE ONE PILL TWICE DAILY NEEDED [facility] ofloxacin 0.3 % ear drops PLACE 5 DROPS IN LEFT EAR IN THE MORNING AND 5 DROPS IN THE EVENING. ofloxacin 0.3 % ear drops PLACE 5 DROPS IN LEFT EAR IN THE MORNING AND 5 DROPS IN THE EVENING. No ofloxacin 0.3 % ear drops PLACE 5 DROPS IN LEFT EAR IN THE MORNING AND 5 DROPS IN THE EVENING. [facility] omeprazole 40 mg capsule,del ayed release TAKE ONE (1) CAPSULE(S) BY MOUTH DAILY 30 MINUTES BEFORE MORNING MEAL. omeprazole 40 mg capsule,del ayed release TAKE ONE (1) CAPSULE(S) BY MOUTH DAILY 30 MINUTES BEFORE MORNING MEAL. No omeprazole 40 mg capsule,de layed release TAKE ONE (1) CAPSULE(S) BY MOUTH DAILY 30 MINUTES BEFORE MORNING MEAL. [facility] phenazopyri dine 100 mg tablet TAKE ONE (1) TABLET(S) BY MOUTH THREE TIMES A DAY. phenazopyri dine 100 mg tablet TAKE ONE (1) TABLET(S) BY MOUTH THREE TIMES A DAY. No phenazopyr idine 100 mg tablet TAKE ONE (1) TABLET(S) BY MOUTH THREE TIMES A DAY. [facility] phentermine 15 mg capsule TAKE ONE (1) CAPSULE(S) BY MOUTH TWICE A DAY. phentermine 15 mg capsule TAKE ONE (1) CAPSULE(S) BY MOUTH TWICE A DAY. No phentermin e 15 mg capsule TAKE ONE (1) CAPSULE(S) BY MOUTH TWICE A DAY. [facility] phentermine 37.5 mg capsule Take 1 capsule every day by oral route. phentermine 37.5 mg capsule Take 1 capsule every day by oral route. No 1capsul e(s) Q1D phentermin e 37.5 mg capsule Take 1 capsule every day by oral route. [facility] phentermine 37.5 mg tablet TAKE 1 TABLET BY MOUTH EVERY DAY BEFORE BREAKFAST phentermine 37.5 mg tablet TAKE 1 TABLET BY MOUTH EVERY DAY BEFORE BREAKFAST No phentermin e 37.5 mg tablet TAKE 1 TABLET BY MOUTH EVERY DAY BEFORE BREAKFAST [facility] pilocarpine 5 mg tablet TAKE ONE (1) TABLET BY MOUTH THREE TIMES A DAY. pilocarpine 5 mg tablet TAKE ONE (1) TABLET BY MOUTH THREE TIMES A DAY. No pilocarpin e 5 mg tablet TAKE ONE (1) TABLET BY MOUTH THREE TIMES A DAY. [facility] pregabalin 100 mg capsule TAKE 1 CAPSULE 3 TIMES A DAY BY ORAL ROUTE NEEDED FOR 28 DAYS. pregabalin 100 mg capsule TAKE 1 CAPSULE 3 TIMES A DAY BY ORAL ROUTE NEEDED FOR 28 DAYS. No pregabalin 100 mg capsule TAKE 1 CAPSULE 3 TIMES A DAY BY ORAL ROUTE NEEDED FOR 28 DAYS. [facility] pregabalin 75 mg capsule Take 1 capsule twice a day by oral route. pregabalin 75 mg capsule Take 1 capsule twice a day by oral route. No 1capsul e(s) BID pregabalin 75 mg capsule Take 1 capsule twice a day by oral route. [facility] Qsymia 3.75 mg-23 mg capsule, extended release TAKE 1 CAPSULE BY MOUTH EVERY DAY Qsymia 3.75 mg-23 mg capsule, extended release TAKE 1 CAPSULE BY MOUTH EVERY DAY No Qsymia 3.75 mg-23 mg capsule, extended release TAKE 1 CAPSULE BY MOUTH EVERY DAY [facility] sertraline 100 mg tablet TAKE ONE (1) TABLET(S) BY MOUTH ONCE A DAY. sertraline 100 mg tablet TAKE ONE (1) TABLET(S) BY MOUTH ONCE A DAY. No sertraline 100 mg tablet TAKE ONE (1) TABLET(S) BY MOUTH ONCE A DAY. [facility] tolterodine ER 2 mg capsule,ext ended release 24 hr TAKE ONE (1) CAPSULE(S) BY MOUTH DAILY. tolterodine ER 2 mg capsule,ext ended release 24 hr TAKE ONE (1) CAPSULE(S) BY MOUTH DAILY. No tolterodin e ER 2 mg capsule,ex tended release 24 hr TAKE ONE (1) CAPSULE(S) BY MOUTH DAILY. [facility] Trintellix 10 mg tablet TAKE 1 TABLET BY MOUTH EVERY DAY Trintellix 10 mg tablet TAKE 1 TABLET BY MOUTH EVERY DAY No Trintellix 10 mg tablet TAKE 1 TABLET BY MOUTH EVERY DAY [facility] Ubrelvy 100 mg tablet Ubrelvy 100 mg tablet No Ubrelvy 100 mg tablet [facility] Zepbound 2.5 mg/0.5 mL subcutaneou s pen injector INJECT 2.5MG UNDER THE SKIN ONCE A WEEK Zepbound 2.5 mg/0.5 mL subcutaneou s pen injector INJECT 2.5MG UNDER THE SKIN ONCE A WEEK No Zepbound 2.5 mg/0.5 mL subcutaneo us pen injector INJECT 2.5MG UNDER THE SKIN ONCE A WEEK [facility] zolpidem 10 mg tablet TAKE 1 TABLET BY MOUTH EVERY DAY AT BEDTIME NEEDED zolpidem 10 mg tablet TAKE 1 TABLET BY MOUTH EVERY DAY AT BEDTIME NEEDED No zolpidem 10 mg tablet TAKE 1 TABLET BY MOUTH EVERY DAY AT BEDTIME NEEDED [facility] acyclovir 400 mg tablet Take 1 tablet every 8 hours by oral route. acyclovir 400 mg tablet Take 1 tablet every 8 hours by oral route. No 1 Q8H acyclovir 400 mg tablet Take 1 tablet every 8 hours by oral route. [facility] bupropion HCl 75 mg tablet TAKE 1 TABLET BY MOUTH EVERY DAY FOR 30 DAYS THEN INCREASE TO TWICE A DAY bupropion HCl 75 mg tablet TAKE 1 TABLET BY MOUTH EVERY DAY FOR 30 DAYS THEN INCREASE TO TWICE A DAY No bupropion HCl 75 mg tablet TAKE 1 TABLET BY MOUTH EVERY DAY FOR 30 DAYS THEN INCREASE TO TWICE A DAY [facility] buspirone 30 mg tablet TAKE ONE (1) TABLET(S) BY MOUTH TWICE A DAY. buspirone 30 mg tablet TAKE ONE (1) TABLET(S) BY MOUTH TWICE A DAY. No buspirone 30 mg tablet TAKE ONE (1) TABLET(S) BY MOUTH TWICE A DAY. [facility] chlorhexidi ne gluconate 0.12 % mouthwash SWISH AND SPIT WITH 10 ML BY MOUTH TWICE A DAY. chlorhexidi ne gluconate 0.12 % mouthwash SWISH AND SPIT WITH 10 ML BY MOUTH TWICE A DAY. No chlorhexid ine gluconate 0.12 % mouthwash SWISH AND SPIT WITH 10 ML BY MOUTH TWICE A DAY. [facility] clotrimazol e-betametha sone 1 %-0.05 % topical cream APPLY TO AFFECTED AREA TWICE A DAY clotrimazol e-betametha sone 1 %-0.05 % topical cream APPLY TO AFFECTED AREA TWICE A DAY No clotrimazo le-betamet hasone 1 %-0.05 % topical cream APPLY TO AFFECTED AREA TWICE A DAY [facility] colchicine 0.6 mg tablet TALE ONE (1) TABLET BY MOUTH TWICE A DAY NEEDED. colchicine 0.6 mg tablet TALE ONE (1) TABLET BY MOUTH TWICE A DAY NEEDED. No colchicine 0.6 mg tablet TALE ONE (1) TABLET BY MOUTH TWICE A DAY NEEDED. [facility] cyanocobala min (vit B-12) 1,000 mcg/mL injection solution INJECT INTO THE MUSCLE 1 MILLILITER EVERY 30 DAYS INJECTION MONTHLY 90 DAYS cyanocobala min (vit B-12) 1,000 mcg/mL injection solution INJECT INTO THE MUSCLE 1 MILLILITER EVERY 30 DAYS INJECTION MONTHLY 90 DAYS No cyanocobal stafford (vit B-12) 1,000 mcg/mL injection solution INJECT INTO THE MUSCLE 1 MILLILITER EVERY 30 DAYS INJECTION MONTHLY 90 DAYS [facility] Decara 1,250 mcg (50,000 unit) capsule Take 1 capsule every week by oral route. Decara 1,250 mcg (50,000 unit) capsule Take 1 capsule every week by oral route. No 1capsul e(s) Q1W Decara 1,250 mcg (50,000 unit) capsule Take 1 capsule every week by oral route. [facility] diclofenac potassium 50 mg tablet TAKE ONE (1) TABLET(S) BY MOUTH TWICE A DAY NEEDED. diclofenac potassium 50 mg tablet TAKE ONE (1) TABLET(S) BY MOUTH TWICE A DAY NEEDED. No diclofenac potassium 50 mg tablet TAKE ONE (1) TABLET(S) BY MOUTH TWICE A DAY NEEDED. [facility] diclofenac sodium 75 mg tablet,mehran yed release TAKE 1 TABLET BY MOUTH TWICE A DAY NEEDED diclofenac sodium 75 mg tablet,mehran yed release TAKE 1 TABLET BY MOUTH TWICE A DAY NEEDED No diclofenac sodium 75 mg tablet,del ayed release TAKE 1 TABLET BY MOUTH TWICE A DAY NEEDED [facility] ergocalcife rol (vitamin D2) 1,250 mcg (50,000 unit) capsule TAKE ONE (1) CAPSULE(S) BY MOUTH ONCE A WEEK. ergocalcife rol (vitamin D2) 1,250 mcg (50,000 unit) capsule TAKE ONE (1) CAPSULE(S) BY MOUTH ONCE A WEEK. No ergocalcif mary (vitamin D2) 1,250 mcg (50,000 unit) capsule TAKE ONE (1) CAPSULE(S) BY MOUTH ONCE A WEEK. [facility] escitalopra m 10 mg tablet TAKE 1 TABLET BY MOUTH EVERY DAY escitalopra m 10 mg tablet TAKE 1 TABLET BY MOUTH EVERY DAY No escitalopr am 10 mg tablet TAKE 1 TABLET BY MOUTH EVERY DAY [facility] estradiol 0.01% (0.1 mg/gram) vaginal cream INSERT 0.5 GRAMS BY VAGINAL ROUTE DIRECTED THREE TIMES WEEKLY. estradiol 0.01% (0.1 mg/gram) vaginal cream INSERT 0.5 GRAMS BY VAGINAL ROUTE DIRECTED THREE TIMES WEEKLY. No estradiol 0.01% (0.1 mg/gram) vaginal cream INSERT 0.5 GRAMS BY VAGINAL ROUTE DIRECTED THREE TIMES WEEKLY. [facility] eszopiclone 3 mg tablet TAKE ONE (1) TABLET(S) BY MOUTH ONCE A DAY. eszopiclone 3 mg tablet TAKE ONE (1) TABLET(S) BY MOUTH ONCE A DAY. No eszopiclon e 3 mg tablet TAKE ONE (1) TABLET(S) BY MOUTH ONCE A DAY. [facility] famotidine 40 mg tablet TAKE ONE (1) TABLET(S) BY MOUTH AT BEDTIME. famotidine 40 mg tablet TAKE ONE (1) TABLET(S) BY MOUTH AT BEDTIME. No famotidine 40 mg tablet TAKE ONE (1) TABLET(S) BY MOUTH AT BEDTIME. [facility] fluoxetine 40 mg capsule TAKE ONE (1) CAPSULE(S) BY MOUTH ONCE A DAY. fluoxetine 40 mg capsule TAKE ONE (1) CAPSULE(S) BY MOUTH ONCE A DAY. No fluoxetine 40 mg capsule TAKE ONE (1) CAPSULE(S) BY MOUTH ONCE A DAY. [facility] furosemide 40 mg tablet TAKE 1 TABLET BY MOUTH EVERY DAY furosemide 40 mg tablet TAKE 1 TABLET BY MOUTH EVERY DAY No furosemide 40 mg tablet TAKE 1 TABLET BY MOUTH EVERY DAY [facility] hydrocodone 10 mg-acetamin ophen 325 mg tablet TAKE ONE (1) TABLET(S) BY MOUTH THREE TIMES A DAY NEEDED. hydrocodone 10 mg-acetamin ophen 325 mg tablet TAKE ONE (1) TABLET(S) BY MOUTH THREE TIMES A DAY NEEDED. No hydrocodon e 10 mg-acetami nophen 325 mg tablet TAKE ONE (1) TABLET(S) BY MOUTH THREE TIMES A DAY NEEDED. [facility] busPIRone HCl 10 MG busPIRone HCl 10 MG No 1{table t} TID busPIRone HCl 10 MG FLUoxetine HCl 40 MG FLUoxetine HCl 40 MG No 1{capsu le} QD FLUoxetine HCl 40 MG Omeprazole 40 MG Omeprazole 40 MG No Omeprazole 40 MG Cyanocobala min 1000 MCG/ML Cyanocobala min 1000 MCG/ML No Cyanocobal stafford 1000 MCG/ML Solifenacin Succinate 10 MG Solifenacin Succinate 10 MG 03-27 00:00 :00 No 1{table t} QD Solifenaci n Succinate 10 MG Immunizations Ordered Immunization Name Filled Immunization Name Date Status Comments Source Prevnar 13 (PCV13) Prevnar 13 (PCV13) 2021-06-04 11:12:00 [facility] Prevnar 13 (PCV13) Prevnar 13 (PCV13) 2021-06-04 11:12:00 Completed [facility] Prevnar 13 (PCV13) Prevnar 13 (PCV13) 2021-06-04 11:12:00 Completed [facility] Prevnar 13 (PCV13) Prevnar 13 (PCV13) 2021-06-04 11:12:00 Completed [facility] Prevnar 13 (PCV13) Prevnar 13 (PCV13) 2021-06-04 11:12:00 Completed [facility] Prevnar 13 (PCV13) Prevnar 13 (PCV13) 2021-06-04 11:12:00 Completed [facility] Prevnar 13 (PCV13) Prevnar 13 (PCV13) 2021-06-04 11:12:00 Completed [facility] Prevnar 13 (PCV13) Prevnar 13 (PCV13) 2021-06-04 11:12:00 Completed [facility] Pneumococcal Vaccine, Conjugate 13 2021-06-04 00:00:00 Completed [facility] Flucelvax (ccIIV4) - MDV - 0.5mL Flucelvax (ccIIV4) - MDV - 0.5mL 2021-05-05 11:12:00 Completed [facility] Flucelvax - multidose vial Flucelvax - multidose vial 2021-05-05 11:12:00 Completed [facility] Flucelvax - multidose vial Flucelvax - multidose vial 2021-05-05 11:12:00 Completed [facility] Flucelvax - multidose vial Flucelvax - multidose vial 2021-05-05 11:12:00 Completed [facility] Flucelvax - multidose vial Flucelvax - multidose vial 2021-05-05 11:12:00 Completed [facility] Flucelvax - multidose vial Flucelvax - multidose vial 2021-05-05 11:12:00 Completed [facility] Flucelvax - multidose vial Flucelvax - multidose vial 2021-05-05 11:12:00 Completed [facility] Flucelvax - multidose vial Flucelvax - multidose vial 2021-05-05 11:12:00 [facility] Influenza, Injectable, Mdck, Quadrivalent With Preservatie 2021-05-05 00:00:00 Completed [facility] Vital Signs Vital Name Observation Time Observation Value Comments S ource Height 2023-11-25 00:00:00 59 [in_i] [facility] BP Diastolic 2023-11-25 00:00:00 88 mm[Hg] [facility] BP Systolic 2023-11-25 00:00:00 176 mm[Hg] [facility] Body Weight 2023-11-25 00:00:00 214 [lb_av] [facility] BMI (Body Mass Index) 2023-11-25 00:00:00 43.2 kg/m2 [facility] Body Weight 2023-11-12 00:00:00 220 [lb_av] [facility] BP Diastolic 2023-11-12 00:00:00 80 mm[Hg] [facility] Height 2023-11-12 00:00:00 59 [in_i] [facility] BP Systolic 2023-11-12 00:00:00 134 mm[Hg] [facility] BMI (Body Mass Index) 2023-11-12 00:00:00 44.4 kg/m2 [facility] Weight 2023-09-25 00:00:00 220 [lb_av] [facility] BP Systolic 2023-09-25 00:00:00 149 mm[Hg] [facility] BP Diastolic 2023-09-25 00:00:00 84 mm[Hg] [facility] BMI (Body Mass Index) 2023-09-25 00:00:00 44.4 kg/m2 [facility] Height 2023-09-25 00:00:00 59 [in_i] [facility] Systolic blood pressure 2023-07-09 15:34:00 126 mm[Hg] [facility] Diastolic blood pressure 2023-07-09 15:34:00 80 mm[Hg] [facility] Heart rate 2023-07-09 15:34:00 70 /[facility] temperature 2023-07-09 15:34:00 36.67 Rachelle [facility] Respiratory rate 2023-07-09 15:34:00 18 /min [facility] Body weight 2023-07-09 15:34:00 101.152 [facility] BMI 2023-07-09 15:34:00 45.04 kg/m2 [facility] Oxygen saturation in Arterial blood by Pulse oximetry 2023-07-09 15:34:00 99 /min [facility] height 2022-07-16 14:20:00 59 [in_i] Commo n [facility] weight 2022-07-16 14:20:00 180 [lb_av] Comm on [facility] bmi 2022-07-16 14:20:00 36.35 kg/m2 Comm on [facility] height 2022-02-16 08:00:00 59 [in_i] Commo n [facility] weight 2022-02-16 08:00:00 180 [lb_av] Comm on [facility] temperature 2022-02-16 08:00:00 97.8 [degF] Com [facility] bmi 2022-02-16 08:00:00 36.35 kg/m2 Comm on [facility] oximetry 2022-02-16 08:00:00 98 % Commo n [facility] respiratory rate 2022-02-16 08:00:00 16 /min [facility] blood pressure systolic 2022-02-16 08:00:00 128 mm[Hg] [facility] blood pressure diastolic 2022-02-16 08:00:00 68 mm[Hg] [facility] height 2022-02-16 08:00:00 59 [in_i] Commo n [facility] weight 2022-02-16 08:00:00 180 [lb_av] Comm on [facility] temperature 2022-02-16 08:00:00 97.8 [degF] Com [facility] bmi 2022-02-16 08:00:00 36.35 kg/m2 Comm on [facility] oximetry 2022-02-16 08:00:00 98 % Commo n [facility] respiratory rate 2022-02-16 08:00:00 16 /min [facility] blood pressure systolic 2022-02-16 08:00:00 128 mm[Hg] [facility] blood pressure diastolic 2022-02-16 08:00:00 68 mm[Hg] [facility] height 2021-12-27 15:00:00 59 [in_i] Commo n [facility] weight 2021-12-27 15:00:00 180 [lb_av] Comm on [facility] temperature 2021-12-27 15:00:00 97.9 [degF] Com mon [facility] bmi 2021-12-27 15:00:00 36.35 kg/m2 Comm on [facility] oximetry 2021-12-27 15:00:00 99 % Commo n [facility] respiratory rate 2021-12-27 15:00:00 18 /min [facility] blood pressure systolic 2021-12-27 15:00:00 122 mm[Hg] [facility] blood pressure diastolic 2021-12-27 15:00:00 70 mm[Hg] [facility] Systolic blood pressure 2021-11-06 13:20:00 132 mm[Hg] [facility] Diastolic blood pressure 2021-11-06 13:20:00 87 mm[Hg] [facility] Heart rate 2021-11-06 13:20:00 65 /min [facility] Body temperature 2021-11-06 13:20:00 36.72 Rachelle [facility] Respiratory rate 2021-11-06 13:20:00 14 /min [facility] Body height 2021-11-06 13:20:00 149.9 cm [facility] Body weight 2021-11-06 13:20:00 81.647 kg [facility] BMI 2021-11-06 13:20:00 36.36 kg/m2 [facility] height 2021-09-11 14:00:00 59 [in_i] Commo n [facility] weight 2021-09-11 14:00:00 190 [lb_av] Comm on [facility] bmi 2021-09-11 14:00:00 38.37 kg/m2 Comm on [facility] Respitory Rate 2018-08-21 15:20:00 [facility] Systolic (mm Hg) 2018-08-21 15:20:00 [facility] Diastolic (mm Hg) 2018-08-21 15:20:00 [facility] Respitory Rate 2018-08-21 14:46:00 [facility] Systolic (mm Hg) 2018-08-21 14:46:00 [facility] Diastolic (mm Hg) 2018-08-21 14:46:00 [facility] Systolic (mm Hg) 2018-08-21 14:45:00 [facility] Diastolic (mm Hg) 2018-08-21 14:45:00 [facility] Respitory Rate 2018-08-21 14:45:00 [facility] Heart Rate 2018-08-19 20:04:00 [facility] Temperature Oral (F) 2018-08-19 20:04:00 98.1 F [facility] Weight 2018-08-19 19:34:00 [facility] BMI Calculated 2018-08-19 19:34:00 [facility] Height 2018-08-19 19:34:00 149.86 cm [facility] Height 2016-06-15 17:46:00 149.86 cm [facility] Systolic (mm Hg) 2016-06-15 17:46:00 [facility] Diastolic (mm Hg) 2016-06-15 17:46:00 [facility] Heart Rate 2016-06-15 17:46:00 [facility] Weight 2016-06-15 17:46:00 [facility] BMI Calculated 2016-06-15 17:46:00 [facility] Procedures Procedure Date / Time Performed Performing Clinician Source Cystoscopy 2023-11-07 00:00:00 Park Thorne edical CONSENT/REFUSAL FOR DIAGNOSIS AND TREATMENT 2023-07-09 15:20:33 Doctor Unassigned, [place] [facility] REFERRAL- REQUEST/RESPONSE 2022-11-07 05:01:00 Fiorella tenorio Unassigned, [place] [facility] PHYSICIAN ORDERS 2022-10-11 06:01:00 Doctor Unas signed, [place] [facility] Injection procedure for shoulder arthrography or enhanced CT/MRI shoulder arthrography 2020-06-10 20:17:37 [facility] Hysterectomy 2013-08-05 00:00:00 Park edical Endometrial Ablation 2012-08-05 00:00:00 [facility] Arthroscopy of knee<sup>2</sup> [facility] Caesarean section<sup>3</sup> [facility] Cholecystectomy [facility] History of sleeve gastrectomy [facility] Laparoscopic adjustable gastric banding [facility] Ligament reconstruction Dariusz rial Ricci Procedure on Knee [facility] ical Cholecystectomy (Gallbladder) [facility] Laparoscopic Sleeve Gastrectomy [facility] Delivery [facility] ical Encounters Start Date/Time End Date/Time Encounter Type Admission Type Attending Clinicians Care Facility Care Department Encounter ID Source 2024-10-23 08:28:00 Outpatient Jonathan Talbert [facility] [id number] [facility] 2023-02-14 08:14:00 Outpatient Morales, Selam [facility] [id number] [facility] 2022-07-12 07:57:00 Outpatient Morales, Selam [facility] [id number] [facility] 2022-02-14 11:19:00 Outpatient Morales, Selam [facility] [id number] [facility] 2022-01-10 14:28:00 Outpatient Morales, Selam [facility] [id number] [facility] 2021-12-29 09:24:01 Outpatient Morales, Selam [facility] [id number] [facility] 2021-12-26 14:31:01 Outpatient Morales, Selam [facility] [id number] [facility] 2021-11-14 15:38:00 Outpatient Frederic Olvera [facility] [id number] [facility] 2021-10-30 12:44:00 Outpatient Morales, Selam [facility] [id number] [facility] 2021-09-07 14:27:02 Outpatient Selam Morales [facility] [id number] [facility] 2021-08-30 14:38:09 Outpatient Chaz Hope [facility] [id number] [facility] 2021-08-30 10:59:19 Outpatient Jonathan Talbert [facility] [id number] [facility] 2024-10-23 00:00:00 2024-10-23 00:00:00 (TEL) [facility] [id number] [facility] 2017-08-28 00:00:00 2024-09-19 03:28:08 Orders Only Doctor Unassigned, [place] Doctor Unassigned, [place] [facility] [id number] [facility] 2024-09-15 09:57:39 2024-09-15 09:57:39 Outpatient [facility] [id number] Constantin Kaur Nader 2023-11-25 00:00:00 2023-11-25 00:00:00 JOZEF Trevino: [address], [place] [address] , Ph. [facility] - GC_GCBZW_Dasia [facility] [id number] [facility] 2023-11-18 00:00:00 2023-11-18 00:00:00 Outpatient GC_GCBZW_Martina Bergman [facility] [id number] [facility] 2023-11-12 00:00:00 2023-11-12 00:00:00 Jaqueline Ag MD: [address], [place] [address] , Ph. [facility] - GC_GCBZW_Dasia Alatorre* [id number] [facility] 2023-11-09 00:00:00 2023-11-09 00:00:00 Outpatient GC_GCBZW_Ka diyala_S PRIV PRIV [id number] [facility] 2023-11-07 00:00:00 2023-11-07 00:00:00 Outpatient GC_GCBZW_Ka diyala_S PRIV PRIV [id number] [facility] 2023-10-15 00:00:00 2023-10-15 00:00:00 JOZEF Trevino: [address], [place] [address] , Ph. GC_GCBZW_Ka diyala_S [facility] - GC_GCBZW_Dasia Alatorre* [id number] [facility] 2023-10-15 00:00:00 2023-10-15 00:00:00 JOZEF Trevino: [address], [place] [address] , Ph. [facility] - GC_GCBZW_Dasia Alatorre* [id number] [facility] 2023-09-27 00:00:00 2023-09-27 00:00:00 Outpatient GC_GCBZW_Ka diyala_S PRIV PRIV [id number] [facility] 2023-09-25 00:00:00 2023-09-25 00:00:00 Outpatient GC_GCBZW_Ka diyala_S PRIV PRIV [id number] [facility] 2023-09-25 00:00:00 2023-09-25 00:00:00 Jaqueline Ag MD: [address], [place] [address] , Ph. [facility] - GC_GCBZW_Dasia charis Alatorre* [id number] [facility] 2023-09-20 00:00:00 2023-09-20 00:00:00 Outpatient GC_GCBZW_Ka diyala_S PRIV PRIV [id number] [facility] 2023-09-03 00:00:00 2023-09-03 00:00:00 Outpatient GC_GCBZW_Ka diyala_S PRIV PRIV [id number] [facility] 2023-08-15 00:00:00 2023-08-15 00:00:00 Outpatient GC_GCBZW_Ka diyala_S PRIV PRIV [id number] [facility] 2023-08-13 00:00:00 2023-08-13 00:00:00 Wen Hernandez [facility] [id number] [id number] [id number] [id number] [facility] 2023-07-09 09:20:00 2023-07-09 09:44:09 Outpatient R WEN WYATT [facility] [id number] [facility] 2023-07-09 09:20:00 2023-07-09 09:44:09 Urgent Care Wen Wyatt Unknown, Attending [facility] BU[facility] [id number] 350.1.13.10 [id number] [id number] [facility] 2023-07-09 00:00:00 2023-07-09 00:00:00 Orders Only Doctor Unassigned, [place] [facility] [id number] 350.1.13.10 4.2.7.2.686 [id number] [facility] 2023-07-09 00:00:00 2023-07-09 00:00:00 RefWen Carey [facility] MED[facility] OFF[facility] BUILD[facility] [id number] 350.1.13.10 [id number] [id number] [facility] 2023-05-10 12:53:00 2023-05-10 16:26:00 Emergency ER AYE PRADO [facility] [id number] [facility] 2023-01-25 08:45:00 2023-01-25 08:45:00 Outpatient BENITO MENA [facility] [id number] [facility] 2023-01-23 10:00:00 2023-01-23 10:00:00 Outpatient BENITO MENA [facility] [id number] [facility] 2022-11-07 00:00:00 2022-11-07 00:00:00 Orders Only Doctor Unassigned, [place] [id number] 350.1.13.10 [id number] [id number] [facility] 2022-10-11 00:00:00 2022-10-11 00:00:00 Orders Only Doctor Unassigned, [place] [facility] [id number] 350.1.13.10 [id number] [id number] [facility] 2022-09-07 00:00:00 2022-09-07 00:00:00 (TEL) [facility] [id number] [facility] 2022-08-10 13:00:00 2022-08-10 13:00:00 Outpatient AURELIA CALABRESE [facility] [id number] [facility] 2022-08-02 00:00:00 2022-08-02 00:00:00 (TEL) [facility] [id number] [facility] 2022-07-16 00:00:00 2022-07-16 00:00:00 OFFICE VISIT ESTAB PT LEVEL 3 [facility] [id number] [facility] 2022-07-10 00:00:00 2022-07-10 00:00:00 Outpatient Deshazo_T DMG DMG [id number] [facility] 2022-07-09 00:00:00 2022-07-09 00:00:00 Outpatient Deshazo_T DMG DMG [id number] [facility] 2022-06-27 00:00:00 2022-06-27 00:00:00 Outpatient DMG DMG [id number] [facility] 2022-06-21 00:00:00 2022-06-21 00:00:00 (TEL) STL[facility]C [facility] [id number] [facility] 2022-05-29 00:00:00 2022-05-29 00:00:00 (TEL) STLMLC STLMLC [id number] [facility] 2022-05-22 00:00:00 2022-05-22 00:00:00 (TEL) STLMLC STLMLC [id number] [facility] 2022-04-13 00:00:00 2022-04-13 00:00:00 Outpatient DMG DMG [id number] [facility] 2022-03-20 00:00:00 2022-03-20 00:00:00 (TEL) STLMLC STLMLC [id number] [facility] 2022-02-16 00:00:00 2022-02-16 00:00:00 (MCR WELL) Medicare Wellness STLMLC STLMLC [id number] [facility] 2022-02-16 00:00:00 2022-02-16 00:00:00 OFFICE VISIT ESTAB PT LEVEL 4 [facility]C STLMLC [id number] [facility] 2022-01-10 00:00:00 2022-01-10 00:00:00 (TEL) STLMLC STLMLC [id number] [facility] 2021-12-27 00:00:00 2021-12-27 00:00:00 (HOSP F/U) Hospital Follow Up STLMLC STLMLC [id number] [facility] 2021-12-18 09:30:00 2021-12-18 09:30:00 Outpatient NISHI MARCH [facility] [id number] [facility] 2021-12-11 00:00:00 2021-12-11 00:00:00 Outpatient FREDERIC OLVERA [facility] [id number] [facility] 2021-12-04 00:00:00 2021-12-04 00:00:00 (TEL) [facility] [id number] [facility] 2021-11-10 00:00:00 2021-11-10 00:00:00 Outpatient FREDERIC OLVERA [facility] [id number] [facility] 2021-11-09 00:00:00 2021-11-09 00:00:00 Outpatient HA MONTENEGROAN [facility] [id number] [facility] 2021-11-06 14:05:00 2021-11-06 14:05:00 Outpatient LAB90 [facility] RODR[facility] [id number] [facility] 2021-11-06 09:30:00 2021-11-06 09:30:00 Outpatient LAB90 FAITH RODRIGUE[facility] [id number] [facility] 2021-11-06 08:30:00 2021-11-06 09:00:00 Office Visit Frederic Olvera [id number] [facility] 2021-11-06 00:00:00 2021-11-06 00:00:00 Outpatient NISHI MARCH [facility] [id number] [facility] 2021-11-03 00:00:00 2021-11-03 00:00:00 Outpatient HOMAR LYNCHOI [facility] [id number] [facility] 2021-09-11 00:00:00 2021-09-11 00:00:00 OFFICE VISIT NEW PT LEVEL 4 [facility] [id number] [facility] 2021-09-03 15:42:00 2021-09-03 17:10:00 Emergency ER PRAFUL GRIMM [facility] [id number] [facility] 2020-06-10 18:38:00 2020-06-11 05:59:00 Outpt Diag Services nullFlavo r [facility] [place] [id number] Nasim Wynne 2019-11-24 09:38:00 2019-11-24 09:38:00 Outpatient [facility] [id number] [facility] 2019-11-20 10:15:00 2019-11-20 10:15:00 Outpatient [facility] [id number] [facility] 2019-09-22 09:35:00 2019-09-22 09:35:00 Outpatient [facility] [id number] [facility] 2019-09-15 13:04:00 2019-09-15 13:04:00 Outpatient [facility] [id number] [facility] 2019-08-13 10:00:00 2019-08-13 10:00:00 Outpatient [facility] [id number] [facility] 2019-08-09 16:17:00 2019-08-09 16:58:00 Emergency ER QUINTON [facility]ARD [facility] [id number] [facility] 2018-08-21 11:09:00 2018-08-21 15:25:00 Day Surgery nullFlavo r [facility] [id number] 00 Nasim Wynne 2017-07-15 09:51:00 2017-07-15 13:20:00 Emergency ER NICKI SMALL [facility] [id number] [facility] 2016-06-15 14:00:00 2016-07-15 05:59:00 Recurring nullFlavo r [facility] [id number] 00 Nasim bales [place] 2014-11-05 19:56:00 2014-11-05 22:50:00 Emergency ER KEHINDE MARIA [facility] [id number] [facility] Results Test Description Test Time Test Comments Results Result Co mments Source [facility] (dipstick) panel - [id number] 11:57:39* Test Item Value Reference Range Interpretation Comme nts Leukocytes (test code = Leukocytes) Negative Nitrite (test code = Nitrite) negative Urobilinogen (test code = Urobilinogen) Normal Protein (test code = Protein) Negative pH (test code = pH) 5.0 Blood (test code = Blood) Negative Specific Dickerson (test code = Specific Dickerson) 1.000 Ketone (test code = Ketone) Negative Bilirubin (test code = Bilirubin) Negative Glucose (test code = Glucose) Negative Appearance (test code = Appearance) Clear Color (test code = Color) Pale Yellow [facility] Medical[facility]ment of post-voiding residual urine and/or bladder capacity (PROC)2023-09-25 08:57:00* Test Item Value Reference Range Interpretation Comme nts (PVR) (test code = (PVR)) 188 [facility] macro (dipstick) panel - [id number] 08:45:05* Test Item Value Reference Range Interpretation Comme nts Leukocytes (test code = Leukocytes) Negative Nitrite (test code = Nitrite) negative Urobilinogen (test code = Urobilinogen) Normal Protein (test code = Protein) 1+ pH (test code = pH) 6.0 Blood (test code = Blood) Negative Specific Dickerson (test code = Specific Dickerson) 1.020 Ketone (test code = Ketone) 1+ Bilirubin (test code = Bilirubin) 1+ Glucose (test code = Glucose) Negative Appearance (test code = Appearance) Clear Color (test code = Color) Dark Yellow [facility]
[2024-12-19 20:25] LABS: Absolute Eosinophils 0.2 K/uL (0-0.5); Absolute Lymphocytes (CBC) 2.6 K/uL (0.7-4.9); Absolute Monocytes 0.7 K/uL (0.1-1.3); Absolute Neutrophil 3.9 K/uL (1.8-8.0); Basophils % 0.6 % (0-1.3); Eosinophils % 3.1 % (0-4.4); Hematocrit 35.1 % (36.0-45.0); Hemoglobin 12.1 g/dL (12.0-15.0); Lymphocytes % 34.7 % (15.3-44.8); MCH 31.1 pg (27.0-35.0); MCHC 34.3 g/dL (32.0-36.0); MCV 90.6 fL (80-100); MPV 11.4 fL (7.6-11.3); Monocytes % 8.9 % (3.3-12.3); Neutrophils % 52.7 % (41.7-73.7); Platelets 216 thou/uL (152-406); RBC Red Blood Cell Count 3.88 M/uL (3.86-4.86); Red Cell Distribution Width 14.8 % (12.1-15.2)
[2024-12-19 20:38] LABS: Specific Gravity 1.019 (1.005-1.030); Sqamous Epithelial <5 /HPF (None Seen); Urine Bacteria None Seen /HPF (<20); Urine Bilirubin 2+ (Negative); Urine Blood Negative (Negative); Urine Clarity Clear (Clear); Urine Color Dark-Yellow (Yellow); Urine Culture Reflex Order NOT NEEDED; Urine Glucose NEGATIVE (Negative); Urine Ketones NEGATIVE (Negative); Urine Microscopic Reflex YN ORDER UMIC; Urine Mucus Slight /HPF (None Seen); Urine Nitrite 2+ (Negative); Urine Protein NEGATIVE (Negative); Urine RBC <5 /HPF (None Seen); Urine Urobilinogen 2+ (Normal); Urine WBC <5 /HPF (<5); Urine pH 6.5 (5.0-7.0)
[2024-12-19 20:47] LABS: Albumin 3.1 g/dL (3.4-5.0); Albumin/Globulin Ratio 0.8 (1.1-1.8); Anion Gap 8.7 mEq/L (5.0-15.0); Bilirubin Total 0.2 mg/dL (0.2-1.0); Globulin 3.9 g/dL (2.3-3.5); Potassium 3.7 mEq/L (3.5-5.1)
--- NOTE | 2024-12-19 21:22 | RAD REPORT ---
Extremity Venous Uni Ltd CLINICAL INDICATION: Female, 59 years old.PAIN TECHNIQUE: Complete duplex sonography of the lower extremity veins was performed of the affected limb . The examination included compression for vein patency, color Doppler imaging and flow augmentation in response to distal compression of the distal external iliac, common femoral, femoral, popliteal, peroneal, tibial and great saphenous veins. [id number]. COMPARISON: No prior exams FINDINGS: Duplex sonography imaging demonstrates all deep veins examined to be fully compressible with spontane ous, phasic and augmented flow in the affected limb. IMPRESSION: No evidence of deep venous thrombosis in the left lower extremity.
[2024-12-19] MEDS ORDERED: NA CHLORIDE 0.9% 500 ML ONE (21:28)
[2024-12-19] MEDS ORDERED: PIPERACIL/TAZO 3.375 GM VIAL IV ONE (21:28)
[2024-12-19] MEDS ORDERED: NA CHLORIDE 0.9% 100 ML ONE (21:29)
--- NOTE | 2024-12-19 22:43 | ER ---
Nurse's Notes [facility] Name: Luba Ng Age: 59 yrs Sex: Female : 1965 Arrival Date: 12/19/2024 Time: 18:44 Bed 19 Private MD: Diagnosis: Cellulitis of left lower limb;UTI/ Urinary tract infection, site not specified Presentation: 12/19 18:56 Chief complaint: Patient states: Fever and chills started Saturday. Noticed red, painful ll1 spot on L leg today. Coronavirus screen: Client denies travel out of the [place] in the last 14 days. At this time, the client does not indicate any symptoms associated with coronavirus-19. Ebola Screen: Patient denies travel to an Ebola-affected area in the 21 days before illness onset. Initial Sepsis Screen: Does the patient meet any 2 criteria? No. Patient's initial sepsis screen is negative. Does the patient have a suspected source of infection? No. Patient's initial sepsis screen is negative. Risk Assessment: Do you want to hurt yourself or someone else? Patient reports no desire to harm self or others. Onset of symptoms was December 14, 2024. 18:56 Method Of Arrival: Wheelchair ll1 18:56 Acuity: RUBI 3 ll1 Triage Assessment: 18:59 General: Appears in no apparent distress. Behavior is calm, cooperative, appropriate ll1 for age, Reports chills for fever for feeling ill for fatigue for. Pain: Complains of pain in left leg Pain currently is 6 out of 10 on a pain scale. Quality of pain is described as aching. Neuro: Reports weakness. Derm: Reports redness, pain to L leg. Musculoskeletal: Reports pain in left leg. Historical: - Allergies: 18:55 No Known Allergies; ll1 - PMHx: 18:55 Anxiety; depressive disorder; Herniated disc; Polio; ll1 - PSHx: 18:55 Cholecystectomy; hysterectomy; vertical gastrectomy; ll1 - Immunization history:: Adult Immunizations up to date. - Infectious Disease History:: Denies. - Social history:: Smoking status: Patient denies any tobacco usage or history of. Screenin:[address] [facility] ED Fall Risk Assessment (Adult) History of falling in the last 3 months, kj2 including since admission No falls in past 3 months (0 pts) Confusion or Disorientation No (0 pts) Intoxicated or Sedated No (0 pts) Impaired Gait Yes (1 pt) Mobility Assist Device Used Yes (1 pt) Altered Elimination No (0 pt) Score/Fall Risk Level 3 or more points = High Risk Maintained a safe environment, Hourly rounding (assess needs \T\ fall precautionary measures) done, Used ambulatory aids as needed (educated on \T\ assisted with). Abuse screen: Denies threats or abuse. Denies injuries from another. Nutritional screening: No deficits noted. Tuberculosis screening: No symptoms or risk factors identified. Assessment: 20:05 General: Appears in no apparent distress. Behavior is calm, cooperative. Pain: kj2 Complains of pain in left leg Pain currently is 5 out of 10 on a pain scale. Neuro: Level of Consciousness is awake, alert, obeys commands, Oriented to person, place, time, situation. Cardiovascular: Patient's skin is warm and dry. Respiratory: Airway is patent Respiratory effort is even, unlabored. GI: No signs and/or symptoms were reported involving the gastrointestinal system. : No signs and/or symptoms were reported regarding the genitourinary system. Reports urine is orange due to antibiotics she has been ordered. 21:00 Reassessment: Patient appears in no apparent distress at this time. Patient and/or kj2 family updated on plan of care and expected duration. Pain level reassessed. Patient is alert, oriented x 3, equal unlabored respirations, skin warm/dry/pink. 21:50 Reassessment: Patient appears in no apparent distress at this time. Patient and/or kj2 family updated on plan of care and expected duration. Pain level reassessed. Patient is alert, oriented x 3, equal unlabored respirations, skin warm/dry/pink. 22:44 Reassessment: Patient appears in no apparent distress at this time. Patient and/or kj2 family updated on plan of care and expected duration. Pain level reassessed. Patient is alert, oriented x 3, equal unlabored respirations, skin warm/dry/pink. 23:17 Reassessment: Patient appears in no apparent distress at this time. Patient and/or kj2 family updated on plan of care and expected duration. Pain level reassessed. Patient is alert, oriented x 3, equal unlabored respirations, skin warm/dry/pink. Vital Signs: 18:56 BP 108 / 64; Pulse 67; Resp 16; Temp 98.2; Pulse Ox 100% ; Weight 68.95 kg; Height 4 ll1 ft. 11 in. ; Pain 6/10; 21:00 BP 90 / 63; Pulse 60; Resp 20; Pulse Ox 100% on R/A; kj2 22:00 BP 105 / 63; Pulse 64; Resp 16; Temp 98; Pulse Ox 100% ; kj2 23:00 BP 103 / 58; Pulse 68; Resp 20; Temp 98.1; Pulse Ox 100% on R/A; kj2 18:56 Body Mass Index 30.70 (68.95 kg, 149.86 cm) ll1 18:56 Pain Scale: Adult ll1 ED Course: 18:48 Patient arrived in ED. al6 18:52 Rad Hollins PA is PHCP. cp 18:52 Tevin Morales MD is Attending Physician. cp 18:57 Triage completed. ll1 18:57 Arm band placed on. ll1 19:57 Francisca Mark, LION is Primary Nurse. kj2 20:05 Provided Education on: call light. kj2 20:10 Inserted saline lock: 20 gauge in right antecubital area, using aseptic technique. kj2 Blood collected. Flushed with 10 mL NS. 20:29 Patient has correct armband on for positive identification. Bed in low position. Call kj2 light in reach. 20:45 US Extremity Venous Unilateral Ltd In Process Unspecified. EDMS 22:01 Inserted saline lock: 22 gauge in right hand, using aseptic technique. Flushed with 10 hw mL NS. 22:44 No provider procedures requiring assistance completed. IV discontinued, intact, kj2 bleeding controlled, No redness/swelling at site. Administered Medications: 21:40 Drug: Piperacillin-Tazobactam IVPB 3.375 grams IVPB once over 60 mins; (mix in NS 100 kj2 mL) Route: IVPB; Infused Over: 60 mins; Site: right antecubital; 22:46 Follow up: IV Status: Completed infusion; IV Intake: 100ml kj2 21:40 Drug: NS 0.9% IV 500 ml 500 ml IV at 1 bolus once; to be given as a bolus over 60 kj2 minutes Volume: 500 ml; Route: IV; Rate: 1 bolus; Site: right antecubital; 22:46 Follow up: IV Status: Completed infusion; IV Intake: 500ml kj2 Medication: 20:29 VIS not applicable for this client. kj2 Intake: 22:46 IV: 500ml; Total: 500ml. kj2 22:46 IV: 100ml; Total: 600ml. kj2 Outcome: 22:43 Discharge ordered by . cp 22:44 Condition: stable kj2 22:44 Discharge instructions given to patient, Instructed on discharge instructions, follow up and referral plans. Demonstrated understanding of instructions, follow-up care, 22:45 Discharged to home via wheelchair, kj2 23:20 Patient left the ED. kj2 Signatures: Dispatcher [employer] EDMS Rad Hollins PA PA cp Lewis, Lynsay RN RN ll1 Francisca Mark RN RN kj2 Sherice De Leon Alissa al6
--- NOTE | 2024-12-19 22:44 | EDPHYS ---
Physician Documentation [facility] Name: Luba Ng Age: 59 yrs Sex: Female : 1965 Arrival Date: 12/19/2024 Time: 18:44 Bed 19 Private MD: ED Physician Tevin Morales HPI: 12/19 19:10 This 59 yrs old Female presents to ER via Wheelchair with complaints of Leg cp Pain. 19:10 The patient presents with pain, that is acute, swelling, tenderness, erythema. cp 19:10 The complaints affect the left lower leg. Context: resulted from an unknown cause. cp Onset: The symptoms/episode began/occurred this morning. Patient reports she started not feeling well this past Saturday with fatigue, chills. Noticed redness, swelling, pain of left lower leg this morning. Denies injury. Patient also concerned about possible uti. Historical: - Allergies: 18:55 No Known Allergies; ll1 - PMHx: 18:55 Anxiety; depressive disorder; Herniated disc; Polio; ll1 - PSHx: 18:55 Cholecystectomy; hysterectomy; vertical gastrectomy; ll1 - Immunization history:: Adult Immunizations up to date. - Infectious Disease History:: Denies. - Social history:: Smoking status: Patient denies any tobacco usage or history of. ROS: 19:15 Constitutional: Positive for fatigue, "not feeling well", Negative for poor PO intake, cp 19:15 Eyes: Negative for injury, pain, redness, and discharge, cp 19:15 ENT: Negative for drainage from ear(s), ear pain, sore throat, difficulty swallowing, difficulty handling secretions, 19:15 Cardiovascular: Negative for chest pain, palpitations, 19:15 Respiratory: Negative for cough, shortness of breath, wheezing, 19:15 Abdomen/GI: Negative for abdominal pain, vomiting, diarrhea, constipation, 19:15 MS/extremity: Positive for erythema, pain, swelling, tenderness, of the left lower leg, 19:15 Neuro: Negative for altered mental status, dizziness, weakness, 19:15 All other systems are negative, Exam: 19:20 Constitutional: The patient appears in no acute distress, alert, awake, non-toxic, well cp developed, well nourished, seated in wheelchair 19:20 Head/Face: Normocephalic, atraumatic. 19:20 Eyes: Periorbital structures: appear normal, Conjunctiva: normal, no exudate, no injection, Sclera: no appreciated abnormality, Lids and lashes: appear normal, bilaterally, 19:20 ENT: External ear(s): are unremarkable, Nose: is normal, Mouth: Lips: moist, Oral mucosa: moist, Posterior pharynx: Airway: no evidence of obstruction, patent, 19:20 Chest/axilla: Inspection: normal, 19:20 Cardiovascular: Rate: normal, Edema: is not appreciated, 19:20 Respiratory: the patient does not display signs of respiratory distress, Respirations: normal, no use of accessory muscles, no retractions, labored breathing, is not present, Breath sounds: are clear throughout, no decreased breath sounds, no stridor, no wheezing, 19:20 Abdomen/GI: Exam negative for discomfort, distension, guarding, Inspection: abdomen appears normal, 19:20 Back: CVA tenderness, is absent, 19:20 Skin: left lower leg with mild erythema, mild swelling, tender to palpation, skin intact with no open wounds. Vital Signs: 18:56 BP 108 / 64; Pulse 67; Resp 16; Temp 98.2; Pulse Ox 100% ; Weight 68.95 kg; Height 4 ll1 ft. 11 in. ; Pain 6/10; 21:00 BP 90 / 63; Pulse 60; Resp 20; Pulse Ox 100% on R/A; kj2 22:00 BP 105 / 63; Pulse 64; Resp 16; Temp 98; Pulse Ox 100% ; kj2 23:00 BP 103 / 58; Pulse 68; Resp 20; Temp 98.1; Pulse Ox 100% on R/A; kj2 18:56 Body Mass Index 30.70 (68.95 kg, 149.86 cm) ll1 18:56 Pain Scale: Adult ll1 MDM: 20:00 Differential diagnosis: uti, cellulitis, abscess, dvt, sepsis. 22:43 Medical Screening Exam initiated 22:43 Data reviewed: vital signs, nurses notes, lab test result(s), radiologic studies, cp ultrasound, and as a result, I will discharge patient. 22:43 I considered the following discharge prescriptions or medication management in the emergency department Medications were administered in the Emergency Department. See MAR. Counseling: I had a detailed discussion with the patient and/or guardian regarding the historical points, exam findings, and any diagnostic results supporting the discharge/admit diagnosis, lab results, radiology results, to return to the emergency department if symptoms worsen or persist or if there are any questions or concerns that arise at home. Response to treatment: the patient's symptoms have mildly improved after treatment, and as a result, I will discharge patient. 12/19 19: Order name: CBC with Diff; Complete Time: 21:00 cp 12/19 21:00 Interpretation: Normal except: HCT 35.1; MPV 11.4. cp 12/19 19: Order name: CMP; Complete Time: 21:00 cp 12/19 21:01 Interpretation: Normal except: CRE 0.52; AST 50; ALT 78; ALK 149; ALB 3.1; GLOB 3.9; cp A/G 0.8. 12/19 19: Order name: UA Rfx Elio Cult if indicated; Complete Time: 21:00 cp 12/19 21:01 Interpretation: Normal except: UBILI 2+; UUROB 2+; UNIT 2+. cp 12/19 19:09 Order name: Lactate w/ 2H reflex if indic.; Complete Time: 21:00 cp 12/19 19:52 Order name: US Extremity Venous Unilateral Ltd cp 12/19 19:09 Order name: IV Saline Lock; Complete Time: 20:26 cp 12/19 19:09 Order name: Labs collected and sent; Complete Time: 20:26 cp Administered Medications: 21:40 Drug: Piperacillin-Tazobactam IVPB 3.375 grams IVPB once over 60 mins; (mix in NS 100 kj2 mL) Route: IVPB; Infused Over: 60 mins; Site: right antecubital; 22:46 Follow up: IV Status: Completed infusion; IV Intake: 100ml kj2 21:40 Drug: NS 0.9% IV 500 ml 500 ml IV at 1 bolus once; to be given as a bolus over 60 kj2 minutes Volume: 500 ml; Route: IV; Rate: 1 bolus; Site: right antecubital; 22:46 Follow up: IV Status: Completed infusion; IV Intake: 500ml kj2 Disposition Summary: 12/19/24 22:43 Discharge Ordered Notes: Location: Home cp Problem: new cp Symptoms: have improved cp Condition: Stable cp Diagnosis - Cellulitis of left lower limb cp - UTI/ Urinary tract infection, site not specified cp Followup: cp - With: Private Physician - When: 2 - 3 days - Reason: Worsening of condition Discharge Instructions: - Discharge Summary Sheet cp - Cellulitis, Adult cp - Urinary Tract Infection, Adult cp Forms: - Medication Reconciliation Form cp - Antibiotic Education cp - Prescription Opioid Use cp - Patient Portal Instructions cp - Leadership Thank You Letter cp Prescriptions: - Augmentin 875-125 mg Oral Tablet - take 1 tablet ORAL route every 12 hours for 10 days; 20 tablet; Refills: 0, cp Product Selection Permitted Signatures: Dispatcher [employer] EDMS Rad Hollins PA PA cp Darwin Horvath RN RN ll1 Francisca Mark RN RN kj2 Corrections: (The following items were deleted from the chart) 19:10 19:10 CBC+H.LAB.BRZ ordered. EDMS EDMS 19:10 19:10 COMPREHENSIVE METABOLIC PANEL+C.LAB.BRZ ordered. EDMS EDMS 19:10 19:10 UA Rfx Elio Cult if indicated+U.LAB.BRZ ordered. EDMS EDMS 19:10 19:10 LACTATE+C.LAB.BRZ ordered. EDMS EDMS 12/20 20:13 12/19 19:10 Patient reports she started not feeling well this past Saturday with fatigue, cp chills. Noticed redness, swelling, pain of left lower leg this morning. Denies injury. cp
[2024-12-20 00:24] VITALS: O2SAT 100
[2024-12-20 00:30] VITALS: BP 103/58; TEMP 98.1
== END 2024-12-19 23:20 | disposition home or self-care (01) ==
LOC: ER 18:44
DX: L03.116 Cellulitis of left lower limb (principal); N39.0 Urinary tract infection, site not specified
CPT/HCPCS: 96365; 85025; 81001; 36415; 83605; 80053; 93971; 99284; J2543; J7040